=== PATIENT | male | born 1960 | race Caucasian/White ===

== ENCOUNTER 2021-02-10 08:50 | Outpatient (REF) | payer MEDICARE, MEDICAID, SELFPAY ==
[2021-02-10 13:10] LABS: Alanine Aminotransferase 14 U/L (0-40); Albumin Level 4.2 g/dL (3.5-5.0); Alkaline Phosphatase 93 U/L (39-117); Anion Gap 15 (12-20); Aspartate Amino Transferase 14 U/L (5-37); Bilirubin Total 0.6 mg/dL (0.0-1.0); Blood Urea Nitrogen 13 mg/dL (9-16); Calcium 8.6 mg/dL (8.4-10.2); Carbon Dioxide 27 mmol/L (22-29); Chloride 103 mmol/L (96-108); Cholesterol 215 mg/dL; Estimated Glomerular Filt Rate > 60; Glucose Fasting 98 mg/dL (60-99); HDL Cholesterol 27 mg/dL; LDL Cholesterol Calculated 151 mg/dl; Potassium 4.1 mmol/L (3.3-5.1); Sodium 141 mmol/L (135-145); Total Protein 6.5 g/dL (6.5-8.0); Triglycerides 187 mg/dL
[2021-02-10 13:35] LABS: Vitamin D 25-OH Total 33.9 ng/mL (>30)
== END 2021-02-10 08:51 | disposition home or self-care (01) ==
LOC: HO.HMGCLDS 08:50
PROVIDERS: PCP Internal Medicine; Visit Provider Internal Medicine
DX: Z00.01 Encounter for general adult medical examination with abnormal findings (principal); I10 Essential (primary) hypertension; E78.5 Hyperlipidemia, unspecified
CPT/HCPCS: 36415; 80053; 80061; 82306

== ENCOUNTER 2021-09-19 11:33 | Outpatient (REF) | payer MEDICARE, MEDICAID, SELFPAY ==
[2021-09-19 14:03] LABS: Alanine Aminotransferase 17 U/L (0-40); Aspartate Amino Transferase 15 U/L (5-37); Cholesterol 235 mg/dL; HDL Cholesterol 29 mg/dL; LDL Cholesterol Calculated 175 mg/dl; Triglycerides 155 mg/dL
== END 2021-09-19 11:34 | disposition home or self-care (01) ==
LOC: HO.HMGCLDS 11:33
PROVIDERS: PCP Internal Medicine; Visit Provider Internal Medicine
DX: I25.10 Atherosclerotic heart disease of native coronary artery without angina pectoris (principal); I69.30 Unspecified sequelae of cerebral infarction; E78.5 Hyperlipidemia, unspecified
CPT/HCPCS: 36415; 80061; 82550; 84450; 84460

== ENCOUNTER 2022-03-13 11:44 | Outpatient (REF) | payer MEDICARE, MEDICAID, SELFPAY ==
[2022-03-13 14:16] LABS: Alanine Aminotransferase 15 U/L (0-40); Anion Gap 15 (12-20); Aspartate Amino Transferase 15 U/L (5-37); Blood Urea Nitrogen 16 mg/dL (9-16); Calcium 8.9 mg/dL (8.4-10.2); Carbon Dioxide 27 mmol/L (22-29); Chloride 106 mmol/L (96-108); Cholesterol 206 mg/dL; Estimated Glomerular Filt Rate > 60; Glucose Fasting 109 mg/dL (60-99); HDL Cholesterol 26 mg/dL; LDL Cholesterol Calculated 157 mg/dl; Potassium 4.9 mmol/L (3.3-5.1); Sodium 143 mmol/L (135-145); Triglycerides 119 mg/dL
== END 2022-03-13 11:45 | disposition home or self-care (01) ==
LOC: HO.HMGCLDS 11:44
PROVIDERS: PCP Internal Medicine; Visit Provider Internal Medicine
DX: I25.10 Atherosclerotic heart disease of native coronary artery without angina pectoris (principal); I10 Essential (primary) hypertension; E78.5 Hyperlipidemia, unspecified
CPT/HCPCS: 36415; 80048; 80061; 82550; 84450; 84460

== ENCOUNTER 2023-03-26 11:42 | Outpatient (AMB) | payer MEDICARE, MEDICAID, SELFPAY ==
--- NOTE | 2023-03-26 12:01 | MHC.PC.OV ---
Vital Signs 03/26/23 12:03 Height 5 ft 9 in Weight 174 lb BMI 25.7 BP 130/74 Blood Pressure Location Lt brachial Position Sitting Pulse 89 Pulse Source Pulse Oximeter Pulse Oximetry (%) 97 Oxygen Delivery Method Room Air Intake Visit Reasons: Medication review Intake Note: Pt is here today for a follow up visit. Pt states that he needs a refill on his BP med. Allergies atorvastatin Adverse Reaction (Intermediate, Verified 03/26/23 12:30) leg pain Medication List - Last Reconciled 03/26/23 by India Maria MD aspirin (Adult Low Dose Aspirin) 81 mg PO DAILY flu vacc [id number] 6mos up(PF) mL IM lisinopril 10 mg PO DAILY metoprolol succinate ER 25 mg PO DAILY nitroglycerin mg sublingual rosuvastatin 5 mg PO 2XW 90 days Tobacco use date assessed: 03/26/23 Dental Screening Dental Screen Date: 03/26/23 Did you have a dental visit in the last 12 months?: No Did you have a dental problem in the last 6 months where you did not have access to dental care?: No Was dental information given to patient?: Patient declined HPI Medication review HPI Details 62-year-old male with history of CVA , here today for follow-up on his hypertension and dyslipidemia. Has been feeling well with no new complaints at present time. [facility] Medical History Vitreous floaters of right eye Mild intermittent asthma History of CVA with residual deficit Coronary artery disease History of retinal detachment NSTEMI (non-ST elevated myocardial infarction) Colonoscopy refused Essential hypertension Dyslipidemia Surgical History H/O heart artery stent History of eye surgery History of right cataract surgery History of left cataract surgery Family History Father HTN (hypertension) Diabetes mellitus Brother Substance use disorder Paternal Uncle Cancer Social History Housing: House Alcohol intake: never Patient Tobacco Use Status: Current everyday Tobacco user Cigarette Packs Per Day: 1 Cigarettes Per Day: 20 e-Cigarette/Vaping Use: Never Used service: No Current occupational status: unemployed Cognitive needs: No Hearing needs: No Vision needs: No Questionnaire PHQ-9 Over the last 2 weeks, how often have you been bothered by any of the following problems? 1. Little interest or pleasure in doing things: several days 2. Feeling down, depressed, or hopeless: not at all 3. Trouble falling or staying asleep, or sleeping too much: several days 4. Feeling tired or having little energy: nearly every day 5. Poor appetite or overeating: several days 6. Feeling bad about yourself - or that you are a failure or have let yourself or your family down: not at all 7. Trouble concentrating on things, such as reading the newspaper or watching television: several days 8. Moving or speaking so slowly that other people could have noticed. Or the opposite - being so fidgety or restless that you have been moving around a lot more than usual: not at all 9. Thoughts that you would be better off or of hurting yourself in some way: not at all Total score: 7 Depression Screening Interpretation: Negative Depression Screening Done: Yes 30889 - PHQ-9 Billing: Yes Source: Developed by Drs. Jakob Jennings, Italia Johnson, Kingsley Wilburn and colleagues, with an educational south from [employer]. Thrive Questionnaire Date Thrive assessed: 03/26/23 I am a: Patient What is your living situation today?: I have a steady place to live Within the past 12 months, did the food you bought not last and you didn't have the money to get more?: Never true Within the past 12 months, did you worry whether your food would run out before you got money to buy more?: Never true Do you have trouble paying for medicines?: No Do you have trouble getting transportation to medical appointments?: No Do you have trouble paying your heating and electricity bill?: No Do you have trouble taking care of your child, family member or friend?: Yes Do you have trouble with day-to-day activities such as bathing, preparing meals, shopping, managing finances, etc.?: No Are you currently unemployed and looking for a job?: No Are you interested in more education?: No Please select the resources that you would like help with: None Currently or been in a relationship where the following occur: no concerns reported AUDIT C Alcohol Use Questionnaire (AUDIT-C) 1. How often do you have a drink containing alcohol?: Never 3. How often do you have six or more drinks on one occasion?: Never Total Score: 0 NICOLE-7 AMB Questionnaire NICOLE-7 Date NICOLE - 7 assessed: 03/26/23 Feeling nervous, anxious, or on edge: 0 = Not at all Not being able to stop or control worryin = Not at all Worrying too much about different things: 0 = Not at all Trouble relaxin = More than half the days Being so restless that it is hard to sit still: 0 = Not at all Becoming easily annoyed or irritable: 1 = Several days Feeling afraid as if something awful might happen: 1 = Several days Total NICOLE-7 score (0-4 normal; 5-9 mild; 10-14 moderate; 15-21 severe): 4 Source: Developed by Drs. Jakob Jennings, Italia Johnson, Kingsley Wilburn and colleagues, with an educational south from [employer]. NICOLE-7 Assessment Billing NICOLE-7 Assessment Tool: NICOLE-7 Assessment 98333 Review of Systems Const Reports no additional complaints and Denies headache(s) ENT Denies dizziness and Denies headache(s) Card Reports no additional complaints Resp Reports no additional complaints GI Reports no additional complaints Musc Reports stiffness Neuro Denies dizziness and Denies headache(s) Endo Reports no additional complaints Manny/Lymph Reports no additional complaints Physical exam (Primary Care) Vital Signs: Last Vital Signs Pulse 89 03/26/23 12:03 BP 130/74 03/26/23 12:03 Pulse Ox 97 03/26/23 12:03 Oxygen Delivery Method Room Air 03/26/23 12:03 BMI result Body Mass Index 25.7 Tobacco/Smoking Status: Tobacco use Status Tobacco use date assessed 03/26/23 03/26/23 12:19 Patient Tobacco Use Status Current everyday Tobacco 03/26/23 12:19 e-Cigarette/Vaping Use Never Used 03/26/23 12:03 PHQ-9: PHQ-9 Score PHQ-9: Total score 13 03/26/23 12:42 Depression Screening Interpretation: Negative Thrive Assessment: Date of Thrive Assessment Date Thrive assessed 03/26/23 03/26/23 12:03 Currently or been in a relationship where the following occur: no concerns reported Const General: comfortable and no acute distress Nutritional Appearance: average body habitus Orientation/consciousness: patient oriented x3 Limitations: ambulation with cane HENMT Ears: hearing grossly normal bilaterally General nose exam: Normal external nose present Face and sinus: Yes face symmetric Mouth: Normal oral and palatal mucosa present and moist mucous membranes Eyes General: appearance normal, both eyes and all related structures Neck Neck: Yes full ROM, Yes no lymphadenopathy and Yes supple Resp Auscultation: clear to auscultation bilaterally Cardio Other: S1-S2 present regular rate and rhythm GI Palpation (GI): Soft to palpation, nontender, no guarding and no masses Neuro General: patient oriented x3 Assessment and Plan Assessment & Plan (1) Essential hypertension: Code(s): I10 - Essential (primary) hypertension Plan: Blood pressure at goal of less than 130/80. Continue with current medication. Reinforced importance of following a low sodium diet, getting regular exercise, and lowering stress levels. (2) Dyslipidemia: Code(s): E78.5 - Hyperlipidemia, unspecified Plan: fasting lipid profile ordered . Continue with rosuvastatin 5 mg taken twice a week , in addition to adherence to low-cholesterol diet and regular exercise, at least 30 minutes 3 to 4 times a week. Advised patient to make healthy food choices, eat more fruits, vegetables, whole grains, wild caught fish and low-fat dairy. Limit amount of meat and fried or fatty food products, as well as processed foods and fast foods. Follow-up scheduled in 6 months. (3) History of CVA with residual deficit: Code(s): I69.30 - Unspecified sequelae of cerebral infarction Plan: Continue aspirin 81 mg daily (4) Coronary artery disease: Comment: Status post STEMI in 2017, followed by [facility] cardiology, Dr Granados Code(s): I25.10 - Atherosclerotic heart disease of [place] coronary artery without angina pectoris Plan: Continue aspirin 81 mg daily Orders: Orders Lipid Panel 03/26/23 E78.5 - Hyperlipidemia, unspecified, I10 - Essential (primary) hypertension, I25.10 - Atherosclerotic heart disease of [place] coronary artery without angina pectoris, I69.30 - Unspecified sequelae of cerebral infarction, Z12.5 - Encounter for screening for malignant neoplasm of prostate, Z53.20 - Procedure and treatment not carried out because of patient's decision for unspecified reasons Hemoglobin A1c 03/26/23 E78.5 - Hyperlipidemia, unspecified, I10 - Essential (primary) hypertension, I25.10 - Atherosclerotic heart disease of [place] coronary artery without angina pectoris, I69.30 - Unspecified sequelae of cerebral infarction, Z12.5 - Encounter for screening for malignant neoplasm of prostate, Z53.20 - Procedure and treatment not carried out because of patient's decision for unspecified reasons Comprehensive [place]. Panel Fast 03/26/23 E78.5 - Hyperlipidemia, unspecified, I10 - Essential (primary) hypertension, I25.10 - Atherosclerotic heart disease of [place] coronary artery without angina pectoris, I69.30 - Unspecified sequelae of cerebral infarction, Z12.5 - Encounter for screening for malignant neoplasm of prostate, Z53.20 - Procedure and treatment not carried out because of patient's decision for unspecified reasons PSA,Total (Free>4and<10) 03/26/23 E78.5 - Hyperlipidemia, unspecified, I10 - Essential (primary) hypertension, I25.10 - Atherosclerotic heart disease of [place] coronary artery without angina pectoris, I69.30 - Unspecified sequelae of cerebral infarction, Z12.5 - Encounter for screening for malignant neoplasm of prostate, Z53.20 - Procedure and treatment not carried out because of patient's decision for unspecified reasons Medications: Changed From rosuvastatin 5 mg PO 2XW 90 days 26 tabs 1RF E78.5 - Hyperlipidemia, unspecified To rosuvastatin 5 mg PO 2XW 90 days 26 tabs 4RF NS E78.5 - Hyperlipidemia, unspecified Refilled lisinopril Schedule next PCP appt for more refills 10 mg PO DAILY 90 tabs 4RF metoprolol succinate ER 25 mg PO DAILY 90 tabs 4RF Coding Level of Care Code Est Pt Level 3 (20595) Diagnoses Essential hypertension I10 Dyslipidemia E78.5 History of CVA with residual deficit I69.30 Coronary artery disease I25.10 Additional Codes NICOLE-7 Assessment Billing - NICOLE-7 Assessment Tool: NICOLE-7 Assessment 21488 ([id number])
[2023-03-26 12:03] VITALS: BP 130/74; PULSE 89; O2SAT 97; BMI 25.7
== END 2023-03-26 14:21 | disposition home or self-care (01) ==
PROVIDERS: PCP Internal Medicine; Visit Provider Internal Medicine
DX: I10 Essential (primary) hypertension (principal); E78.5 Hyperlipidemia, unspecified; I69.30 Unspecified sequelae of cerebral infarction; I25.10 Atherosclerotic heart disease of native coronary artery without angina pectoris
CPT/HCPCS: 99213

== ENCOUNTER 2023-04-01 08:10 | Outpatient (REF) | payer MEDICARE, MEDICAID, SELFPAY ==
[2023-04-01 12:06] LABS: Alanine Aminotransferase 18 U/L (0-40); Albumin Level 4.4 g/dL (3.5-5.0); Alkaline Phosphatase 92 U/L (39-117); Anion Gap 13 (12-20); Aspartate Amino Transferase 18 U/L (5-37); Bilirubin Total 0.9 mg/dL (0.0-1.0); Blood Urea Nitrogen 15 mg/dL (9-16); Calcium 8.9 mg/dL (8.4-10.2); Carbon Dioxide 26 mmol/L (22-29); Chloride 104 mmol/L (96-108); Cholesterol 177 mg/dL (<200); Estimated Glomerular Filt Rate > 60; Glucose Fasting 114 mg/dL (60-99); HDL Cholesterol 31 mg/dL (>40); LDL Cholesterol Calculated 117 mg/dL (<100); Potassium 4.2 mmol/L (3.3-5.1); Sodium 139 mmol/L (135-145); Total Protein 7.1 g/dL (6.5-8.0); Triglycerides 147 mg/dL (<150)
[2023-04-01 12:26] LABS: PSA,Total (Free>4and<10) 0.95 ng/mL (0.00-4.00)
[2023-04-01 12:51] LABS: Estimated Average Glucose 105 mg/dL; Hemoglobin A1c % 5.3 % (<6.0)
== END 2023-04-01 08:11 | disposition home or self-care (01) ==
LOC: HO.HMGCLDS 08:10
PROVIDERS: PCP Internal Medicine; Visit Provider Internal Medicine
DX: I69.30 Unspecified sequelae of cerebral infarction (principal); I25.10 Atherosclerotic heart disease of native coronary artery without angina pectoris; I10 Essential (primary) hypertension; E78.5 Hyperlipidemia, unspecified; Z12.5 Encounter for screening for malignant neoplasm of prostate
CPT/HCPCS: 36415; 80053; 80061; 83036; 84153

== ENCOUNTER 2023-09-29 09:26 | Outpatient (AMB) | payer MEDICARE, MEDICAID, SELFPAY ==
[2023-09-29 09:37] VITALS: BP 134/64; PULSE 60; O2SAT 96; BMI 26.9
--- NOTE | 2023-09-29 09:37 | A.OFFPC_ITS ---
<Statement entered by India Maria MD - 11/18/24 01:53> This note has been administratively?closed. Vital Signs 09/29/23 09:37 Height 5 ft 9 in Weight 182 lb BMI 26.9 BP 134/64 Blood Pressure Location Rt brachial Position Sitting Pulse 60 Pulse Source Pulse Oximeter Pulse Oximetry (%) 96 Oxygen Delivery Method Room Air Intake Visit Reasons: annual pe Intake Note: Pt is here today for his PE: Pt declined colonoscopy (never had one) Allergies atorvastatin Adverse Reaction (Intermediate, Verified 08/03/24 18:01) leg pain Medication List - Last Reconciled 09/29/23 by India Maria MD aspirin (Adult Low Dose Aspirin) 81 mg PO DAILY lisinopril 10 mg PO DAILY metoprolol succinate ER 25 mg PO DAILY nitroglycerin mg sublingual rosuvastatin 5 mg PO 2XW 90 days NS Tobacco use date assessed: 09/29/23 Dental Screening Dental Screen Date: 09/29/23 Did you have a dental visit in the last 12 months?: No Was dental information given to patient?: Patient declined [facility] Medical History (Updated 08/15/24 @ 00:02 by Background Daandrew) Pneumonia Lung cancer (~2023) Abnormal PET scan of lung Lung mass History of non-ST elevation myocardial infarction (NSTEMI) Nicotine dependence, cigarettes, uncomplicated Glaucoma Vitreous floaters of right eye Mild intermittent asthma History of CVA with residual deficit Coronary artery disease History of retinal detachment Colonoscopy refused Essential hypertension Dyslipidemia Surgical History History of lung biopsy History of cataract surgery History of heart artery stent History of eye surgery Family History Father HTN (hypertension) Diabetes mellitus Brother Substance use disorder Paternal Uncle Cancer Social History Household Members: Family Housing: House Are you a primary primary care pediatrician to a significant other at home: No Do you presently have visiting nurse or other home services: No Alcohol intake: never Patient Tobacco Use Status: Former Tobacco user Tobacco use type: Cigarette Cigarette Packs Per Day: 1 Years Smoked: (onset 17yo, 1-2ppd x 46yrs, 60+PYH) e-Cigarette/Vaping Use: Never Used Substance Use Type: Marijuana service: Yes Current occupational status: unemployed and disabled Gender identity: Male Cognitive needs: No Hearing needs: No Vision needs: No Questionnaire PHQ-9 Over the last 2 weeks, how often have you been bothered by any of the following problems? 1. Little interest or pleasure in doing things: not at all 2. Feeling down, depressed, or hopeless: not at all 3. Trouble falling or staying asleep, or sleeping too much: not at all 4. Feeling tired or having little energy: not at all 5. Poor appetite or overeating: not at all 6. Feeling bad about yourself - or that you are a failure or have let yourself or your family down: not at all 7. Trouble concentrating on things, such as reading the newspaper or watching television: not at all 8. Moving or speaking so slowly that other people could have noticed. Or the opposite - being so fidgety or restless that you have been moving around a lot more than usual: not at all 9. Thoughts that you would be better off or of hurting yourself in some way: not at all Total score: 0 Depression Screening Interpretation: Negative Depression Screening Done: Yes 54164 - PHQ-9 Billing: Yes Source: Developed by Drs. Jakob Jennings, Italia Johnson, Kingsley Wilburn and colleagues, with an educational south from [employer]. Thrive Questionnaire Date Thrive assessed: 09/29/23 I am a: Patient What is your living situation today?: I have a steady place to live Within the past 12 months, did the food you bought not last and you didn't have the money to get more?: Never true Within the past 12 months, did you worry whether your food would run out before you got money to buy more?: Never true Do you have trouble paying for medicines?: No Do you have trouble getting transportation to medical appointments?: No Do you have trouble paying your heating and electricity bill?: No Do you have trouble taking care of your child, family member or friend?: No Do you have trouble with day-to-day activities such as bathing, preparing meals, shopping, managing finances, etc.?: No Are you currently unemployed and looking for a job?: No Are you interested in more education?: No THRIVE Score: 0 AUDIT C Alcohol Use Questionnaire (AUDIT-C) 1. How often do you have a drink containing alcohol?: Never Total Score: 0 NICOLE-7 AMB Questionnaire NICOLE-7 Date NICOLE - 7 assessed: 09/29/23 Feeling nervous, anxious, or on edge: 0 = Not at all Not being able to stop or control worryin = Not at all Worrying too much about different things: 0 = Not at all Trouble relaxin = Not at all Being so restless that it is hard to sit still: 0 = Not at all Becoming easily annoyed or irritable: 0 = Not at all Feeling afraid as if something awful might happen: 0 = Not at all Total NICOLE-7 score (0-4 normal; 5-9 mild; 10-14 moderate; 15-21 severe): 0 Source: Developed by Drs. Jakob Jennings, Italia Johnson, Kingsley Wilburn and colleagues, with an educational south from [employer]. Physical exam (Primary Care) Vital Signs: Last Vital Signs Pulse 60 09/29/23 09:37 BP 134/64 09/29/23 09:37 Pulse Ox 96 09/29/23 09:37 Oxygen Delivery Method Room Air 09/29/23 09:37 BMI result Body Mass Index 26.9 Tobacco/Smoking Status: Tobacco use Status Tobacco use date assessed 09/29/23 09/29/23 09:38 Patient Tobacco Use Status Current everyday Tobacco 09/29/23 09:38 e-Cigarette/Vaping Use Never Used 09/29/23 09:38 PHQ-9: PHQ-9 Score PHQ-9: Total score 0 11/17/24 09:59 Depression Screening Interpretation: Negative Thrive Assessment: Date of Thrive Assessment Date Thrive assessed 09/29/23 09/29/23 09:51 Coding Level of Care Code Admin Sign Off/No Billing Diagnoses Glaucoma H40.9 Mild intermittent asthma J45.20 History of CVA with residual deficit I69.30 Coronary artery disease I25.10 Colonoscopy refused Z53.20 Essential hypertension I10 Dyslipidemia E78.5 Annual visit for general adult medical examination with abnormal findings Z00.01 Encounter for screening for malignant neoplasm of prostate Z12.5
== END 2023-09-29 12:32 | disposition home or self-care (01) ==
PROVIDERS: PCP Internal Medicine; Visit Provider Internal Medicine
DX: H40.9 Unspecified glaucoma (principal); J45.20 Mild intermittent asthma, uncomplicated; I69.30 Unspecified sequelae of cerebral infarction; I25.10 Atherosclerotic heart disease of native coronary artery without angina pectoris; Z53.20 Procedure and treatment not carried out because of patient's decision for unspecified reasons; I10 Essential (primary) hypertension; E78.5 Hyperlipidemia, unspecified; Z00.01 Encounter for general adult medical examination with abnormal findings; Z12.5 Encounter for screening for malignant neoplasm of prostate
CPT/HCPCS: 99499

== ENCOUNTER 2024-02-04 10:47 | Outpatient (AMB) | payer MEDICARE, MEDICAID, SELFPAY ==
--- NOTE | 2024-02-04 07:53 | MHC.OFFVIS ---
Intake Visit Reasons: Current Smoker Allergies atorvastatin Adverse Reaction (Intermediate, Verified 09/29/23 10:13) leg pain HPI HPI Current Smoker: Details: Initial visit for this 63yo smoker with a 60+PYH. Patient has been smoking since age 17 for 46 years at 1-2ppd. . Denies marijuana use. Denies second hand smoke exposure. 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 Denies known family history of lung cancer. Denies personal history of cancers. Denies chest CT in last year. . Denies recent travel outside the [place]. Denies recent respiratory illness or recent hospitalization for respiratory issues. Denies testing positive for COVID. Admits receiving COVID Vaccine. x 4. . History of CVA and CAD. Denies fever, chills, new/worsening cough, hemoptysis, hoarseness or dysphagia. Denies significant chest pain, significant dyspnea or unintentional weight loss. Patient Lung Cancer Screening Questionnaire reviewed with patient by provider. . Shared Decision Making Completed. Patient meets criteria. Discussed in detail with patient, the risk vs benefit of LDCT screening. Patient consents to proceed with scan. Discussed smoking cessation. [facility] Medical History (Updated 02/04/24 @ 11:09 by Maribell Adler PA-C) History of CVA with residual deficit Coronary artery disease History of non-ST elevation myocardial infarction (NSTEMI) Essential hypertension Dyslipidemia Mild intermittent asthma Nicotine dependence, cigarettes, uncomplicated History of retinal detachment Glaucoma Vitreous floaters of right eye Colonoscopy refused Surgical History (Updated 01/13/24 @ 10:42 by Maribell Adler PA-C) History of heart artery stent History of cataract surgery History of eye surgery Family History Father HTN (hypertension) Diabetes mellitus Brother Substance use disorder Paternal Uncle Cancer Social History (Updated 02/04/24 @ 11:09 by Maribell Adler PA-C) Housing: House Alcohol intake: never Patient Tobacco Use Status: Current everyday Tobacco user Cigarette Packs Per Day: 1 Cigarettes Per Day: 20 Years Smoked: (onset 17yo, 1-2ppd x 46yrs, 60+PYH) e-Cigarette/Vaping Use: Never Used service: No Current occupational status: unemployed Cognitive needs: No Hearing needs: No Vision needs: No Assessment & Plan Assessment & Plan (1) Nicotine dependence, cigarettes, uncomplicated: Comment: (Current smoker - onset 17yo, 1-2ppd x 46yrs, 60+PYH) Code(s): F17.210 - Nicotine dependence, cigarettes, uncomplicated Category: Medical Plan: - SDM visit completed today in office. - Patient meets criteria for LDCT for lung cancer screening purposes and is asymptomatic. - Smoking cessation counseling offered. Patients can always call [phone]. - Will arrange for a LDCT scan of the chest for screening purposes at [facility]. - Risks, benefits, and alternatives were discussed in detail and the patient agrees to proceed. - Risks discussed include but are not limited to: radiation exposure, anxiety during testing and while awaiting results, false negatives, false positives and possibility of additional intervention such as further imaging or surgical procedures for benign disease. - Benefits are obviously detection of lung cancer at an early stage which can lead to improved outcomes. - Discussed the importance of screening program compliance with adherence to yearly LDCT scan as scheduled - or sooner interval scans for personalized screening regimen. - Discussed follow up plan. Our office will send a letter discussing results and if needed set up phone call and office visit based on CT findings. - Patient educated on results categorization and the management decisions for suspicious findings potentially found on the screening LDCT scan. Any patient with a Lung RADS score of 3 or 4 will be reviewed by a multidisciplinary team at [facility] to form a plan of action in regards to scan findings. - If further work up is warranted for a suspicious lung finding this will be followed by the Lung Cancer Screening program in conjunction with the Thoracic Surgery Department at [facility]. - A copy of the office note and LDCT will be sent to the patient's PCP - as well as documentation on any associated further plans of care. - Incidental findings on LDCT are the PCP's responsibility. These findings are indicated with an S finding on the LDCT Assessment. A note discussing the findings will be sent to the PCP who is then responsible for further management. - All questions answered.? Coding Level of Care Code Lung Cancer Screening G0296 Diagnoses Nicotine dependence, cigarettes, uncomplicated F17.210
== END 2024-02-04 11:07 | disposition home or self-care (01) ==
PROVIDERS: PCP Internal Medicine; Referring Provider Internal Medicine; Visit Provider Physician Assistant Medical
DX: F17.210 Nicotine dependence, cigarettes, uncomplicated (principal)
CPT/HCPCS: G0296

== ENCOUNTER 2024-02-04 11:10 | Outpatient (REF) | payer MEDICARE, MEDICAID, SELFPAY ==
--- NOTE | ~2024-02-04 | CT_ITS ---
EXAMINATION: CT LOW-DOSE SCREENING CHEST WITHOUT CONTRAST CLINICAL INFORMATION: Nicotine dependence, cigarettes, uncomplicated. The patient is a current smoker with a 94 pack-year history of smoking. COMPARISON: None available. TECHNIQUE: Multidetector volumetric CT imaging of the chest is performed on a Siemens SOMATOM Definition scanner without contrast using low dose technique. Additional 2D coronal and sagittal reformatted images and axial 3D maximum intensity projection (MIP) images are generated on the CT workstation. This CT examination was performed using dose optimization techniques as appropriate, variously including the following: *Automated exposure control. *Adjustment of mA and/or kV according to patient size (this includes techniques or standardized protocols for targeted exams where dose is matched to indication/reason for exam; i.e. extremities or head). *Use of iterative reconstruction technique. TOTAL EXAM DLP: 51 mGy-cm. CTDIvol: 1.40 mGy. FINDINGS: PULMONARY NODULES: There is a large right infrahilar pulmonary mass present which occludes the right lower lobe bronchus. This measures 5.7 x 7.6 x 4.5 cm. There are lobular changes distal to this along bronchi and some distal atelectasis. These findings are highly suspicious for neoplasm. No left-sided pulmonary nodules are seen. LUNGS: Lungs bilaterally symmetrically expanded. There is mild emphysema and bronchial thickening. No effusion or pneumothorax. See discussion above regarding occlusion of the right lower lobe bronchus. MEDIASTINUM: There is an enlarged subcarinal lymph node present measuring 2.4 x 3.3 x 3.3 cm. Perihilar adenopathy is present but difficult to measure because of lack of IV contrast. There is a mildly enlarged right paratracheal node present measuring 1.4 cm in short axis dimension. CORONARY ARTERY CALCIFICATION: Moderate. THYROID GLAND: Unremarkable to the extent seen. CARDIOVASCULAR STRUCTURES: Aortic and heart size normal. No pericardial effusion. CHEST WALL/AXILLA: Unremarkable. UPPER ABDOMEN: No adrenal metastatic lesions seen. There is hepatic steatosis. Included portions of the solid organs in the upper abdomen otherwise unremarkable on noncontrast imaging. OSSEOUS STRUCTURES: No suspicious focal findings. CT/CT lung screening IMPRESSION: 1. Large right infrahilar mass obstructing right lower lobe bronchus with associated right hilar and subcarinal adenopathy. Findings are highly suspicious for neoplasm. 2. There is a nodule with additional features or imaging findings that increases the suspicion of malignancy. ASSESSMENT: 1. Lung-RADS Category 4X: Suspicious. There is a nodule with additional features or imaging findings that increases the suspicion of malignancy. N/A. 2. Lung-RADS Category S: Positive. There are clinically significant or potentially clinically significant findings not related to the lungs requiring further workup. RECOMMENDATION: Tissue sampling is recommended depending on the probability of malignancy and comorbidities. This critical result was discussed with Dr. Montesinos at 6:56 PM on 03/09/2024 and it was ascertained that the content and urgency of the report was understood at the time of direct communication. Electronically signed by: Shahid Dowd MD 03/09/2024 06:59 PM EDT
== END 2024-02-04 11:11 | disposition home or self-care (01) ==
LOC: HO.CT 11:10
PROVIDERS: PCP Internal Medicine; Visit Provider Physician Assistant Medical
DX: Z12.2 Encounter for screening for malignant neoplasm of respiratory organs (principal); F17.210 Nicotine dependence, cigarettes, uncomplicated
CPT/HCPCS: 71271; G0296

== ENCOUNTER 2024-02-19 09:34 | Outpatient (REF) | payer MEDICARE, MEDICAID, SELFPAY ==
[2024-02-19 11:09] LABS: MANUAL DIFF FLAG NO
[2024-02-19 11:17] LABS: Basophils Percent Auto 0.4 % (0-2); Eosinophils Absolute Auto 0.1 X10*3/uL (0.0-0.4); Hematocrit 44.1 % (42.0-52.0); Hemoglobin 14.2 g/dl (14.0-18.0); Imm Gran Abs Auto 0.03 X10*3/uL (0.00-0.03); Imm Gran Pct Auto 0.4 % (0.0-0.4); Lymphocytes Absolute Auto 2.7 X10*3/uL (1.2-4.9); Lymphocytes Percent Auto 38.2 % (20-40); Mean Corpuscular HGB Conc 32.2 g/dl (31.0-36.0); Mean Corpuscular Hemoglobin 30.3 pg (27.0-33.0); Mean Platelet Volume 8.9 fL (9.4-12.4); Monocytes Absolute Auto 0.5 X10*3/uL (0.1-1.2); Monocytes Percent Auto 7.6 % (2-11); Neutrophils Absolute Auto 3.6 x10*3/uL (2.0-8.3); Neutrophils Percent Auto 51.4 % (45-73); Platelet Count 293 X10*3/uL (160-400); Red Blood Count 4.69 X10*6/uL (4.60-5.80); Red Cell Distribution Width 14.7 % (11.0-16.0); White Blood Count 7.1 X10*3/uL (4.8-10.8)
[2024-02-19 11:41] LABS: Alanine Aminotransferase 21 U/L (0-40); Anion Gap 14 (12-20); Aspartate Amino Transferase 16 U/L (5-37); Blood Urea Nitrogen 10 mg/dL (9-16); Calcium 9.4 mg/dL (8.4-10.2); Carbon Dioxide 26 mmol/L (22-29); Chloride 107 mmol/L (96-108); Cholesterol 186 mg/dL (<200); Estimated Glomerular Filt Rate > 60; Glucose Fasting 107 mg/dL (60-99); HDL Cholesterol 28 mg/dL (>40); LDL Cholesterol Calculated 134 mg/dL (<100); Potassium 4.1 mmol/L (3.3-5.1); Sodium 143 mmol/L (135-145); Triglycerides 122 mg/dL (<150)
[2024-02-19 11:49] LABS: PSA,Total (Free>4and<10) 1.41 ng/mL (0.00-4.00)
[2024-02-19 11:58] LABS: Vitamin D 25-OH Total 37.4 ng/mL (>30)
== END 2024-02-19 09:35 | disposition home or self-care (01) ==
LOC: HO.HMGCLDS 09:34
PROVIDERS: PCP Internal Medicine; Visit Provider Internal Medicine
DX: I69.30 Unspecified sequelae of cerebral infarction (principal); I25.10 Atherosclerotic heart disease of native coronary artery without angina pectoris; I10 Essential (primary) hypertension; E78.5 Hyperlipidemia, unspecified; J45.20 Mild intermittent asthma, uncomplicated; H40.9 Unspecified glaucoma; F17.210 Nicotine dependence, cigarettes, uncomplicated; Z12.5 Encounter for screening for malignant neoplasm of prostate
CPT/HCPCS: 36415; 80048; 80061; 82306; 84153; 84450; 84460; 85025

== ENCOUNTER 2024-02-22 13:37 | Outpatient (AMB) | payer MEDICARE, MEDICAID, SELFPAY ==
[2024-02-22 14:22] VITALS: BP 124/60; PULSE 75; O2SAT 95; BMI 26.0
--- NOTE | 2024-02-22 14:22 | A.OFFPC_ITS ---
Vital Signs 02/22/24 14:22 Height 5 ft 9 in Weight 176 lb BMI 26.0 BP 124/60 Blood Pressure Location Rt brachial Position Sitting Pulse 75 Pulse Source Pulse Oximeter Pulse Oximetry (%) 95 Oxygen Delivery Method Room Air Intake Visit Reasons: f/u labs Intake Note: Pt is here today for his f/u lab Allergies atorvastatin Adverse Reaction (Intermediate, Verified 02/22/24 14:37) leg pain Medication List - Last Reconciled 02/22/24 by India Maria MD aspirin (Adult Low Dose Aspirin) 81 mg PO DAILY lisinopril 10 mg PO DAILY metoprolol succinate ER 25 mg PO DAILY nitroglycerin mg sublingual rosuvastatin 5 mg PO 2XW 90 days NS Tobacco use date assessed: 02/22/24 Dental Screening Dental Screen Date: 02/22/24 Did you have a dental visit in the last 12 months?: Yes Did you have a dental problem in the last 6 months where you did not have access to dental care?: Yes Was dental information given to patient?: Patient has dentist HPI f/u labs HPI Details 62-year-old male with past medical histo ry of CVA , mild intermittent asthma, CAD with history of non-STEMI, has hypertension hyperlipidemia, here today for follow-up. He has been compliant with taking his medications, currently on lisinopril 10 mg daily, metoprolol succinate 25 mg at night and rosuvastatin 5 mg taken 1 tablet 3 times a week. He has been compliant with his diet but limited with getting any exercise done due to residual deficits from his CVA. Latest fasting labs done showed electrolytes, and renal function as well as fasting glucose and vitamin-D level are within normal limits. Latest fasting labs showed normal electrolytes, renal function, fasting glucose and vitamin-D level but fasting lipids showed mildly elevated LDL cholesterol and low HDL. Blood pressure is stable controlled on present treatment. Continues to smoke however with no desire to quit at present time. Has been referred for lung cancer screening. He also has glaucoma, was being followed at the [facility] in [place], and would like a referral back to see them as he has missed several appointments. [facility] Medical History History of CVA with residual deficit Coronary artery disease History of non-ST elevation myocardial infarction (NSTEMI) Essential hypertension Dyslipidemia Mild intermittent asthma Nicotine dependence, cigarettes, uncomplicated History of retinal detachment Glaucoma Vitreous floaters of right eye Colonoscopy refused Surgical History History of heart artery stent History of cataract surgery History of eye surgery Family History Father HTN (hypertension) Diabetes mellitus Brother Substance use disorder Paternal Uncle Cancer Social History Housing: House Alcohol intake: never Patient Tobacco Use Status: Current everyday Tobacco user Cigarette Packs Per Day: 1 Cigarettes Per Day: 20 Years Smoked: (onset 17yo, 1-2ppd x 46yrs, 60+PYH) e-Cigarette/Vaping Use: Never Used service: No Current occupational status: unemployed Cognitive needs: No Hearing needs: No Vision needs: No Questionnaire PHQ-9 Over the last 2 weeks, how often have you been bothered by any of the following problems? Depression Screening Interpretation: Negative Depression Screening Done: Yes Source: Developed by Drs. Jakob Jennings, Italia Johnson, Kingsley Wilburn and colleagues, with an educational south from [employer]. Thrive Questionnaire Date Thrive assessed: 09/29/23 I am a: Patient What is your living situation today?: I have a steady place to live Within the past 12 months, did the food you bought not last and you didn't have the money to get more?: Never true Within the past 12 months, did you worry whether your food would run out before you got money to buy more?: Never true Do you have trouble paying for medicines?: I choose not to answer this question Do you have trouble getting transportation to medical appointments?: No Do you have trouble paying your heating and electricity bill?: No Do you have trouble taking care of your child, family member or friend?: No Do you have trouble with day-to-day activities such as bathing, preparing meals, shopping, managing finances, etc.?: No Are you currently unemployed and looking for a job?: No Are you interested in more education?: No Please select the resources that you would like help with: None Currently or been in a relationship where the following occur: No concerns reported THRIVE Score: 0 AUDIT C Alcohol Use Questionnaire (AUDIT-C) 1. How often do you have a drink containing alcohol?: Never Total Score: 0 NICOLE-7 AMB Questionnaire NICOLE-7 Date NICOLE - 7 assessed: 09/29/23 Feeling nervous, anxious, or on edge: 0 = Not at all Not being able to stop or control worryin = Not at all Worrying too much about different things: 0 = Not at all Trouble relaxin = Not at all Being so restless that it is hard to sit still: 0 = Not at all Becoming easily annoyed or irritable: 0 = Not at all Feeling afraid as if something awful might happen: 0 = Not at all Total NICOLE-7 score (0-4 normal; 5-9 mild; 10-14 moderate; 15-21 severe): 0 Source: Developed by Drs. Jakob Jennings, Italia Johnson, Kingsley Wilburn and colleagues, with an educational south from [employer]. Review of Systems Const Reports no additional complaints and Denies headache(s) Eyes Reports loss of vision, Reports eye pain (Positive photophobia), Reports seeing flashes and Reports spots in vision ENT Denies dizziness and Denies headache(s) Card Reports no additional complaints Resp Reports no additional complaints GI Reports no additional complaints Musc Reports abnormal gait, Reports limited range of motion and Reports stiffness Neuro Reports abnormal gait, Denies dizziness, Denies headache(s) and Reports loss of vision Endo Reports no additional complaints Manny/Lymph Reports no additional complaints Physical exam (Primary Care) Vital Signs: Last Vital Signs Pulse 75 02/22/24 14:22 BP 124/60 02/22/24 14:22 Pulse Ox 95 02/22/24 14:22 Oxygen Delivery Method Room Air 02/22/24 14:22 BMI result Body Mass Index 26.0 Tobacco/Smoking Status: Tobacco use Status Tobacco use date assessed 02/22/24 02/22/24 14:23 Patient Tobacco Use Status Current everyday Tobacco 02/22/24 14:23 e-Cigarette/Vaping Use Never Used 02/22/24 14:23 Depression Screening Interpretation: Negative Thrive Assessment: Date of Thrive Assessment Date Thrive assessed 09/29/23 02/22/24 14:23 Currently or been in a relationship where the following occur: No concerns reported Const General: no acute distress Nutritional Appearance: average body habitus Orientation/consciousness: patient oriented x3 Limitations: ambulation with cane HENMT Ears: hearing grossly normal bilaterally General nose exam: Normal external nose present Face and sinus: Yes face symmetric Mouth: Normal oral and palatal mucosa present and moist mucous membranes Eyes General: dysmorphic Alignment and Position: alignment abnormal Pupils: Equal, round and reactive pupils present Neck Neck: Yes full ROM, Yes no lymphadenopathy and Yes supple Resp Auscultation: clear to auscultation bilaterally Cardio Other: S1-S2 present regular rate and rhythm GI Palpation (GI): Soft to palpation, nontender, no guarding and no masses Skin General skin exam: no rashes or lesions noted Neuro General: patient oriented x3 Cranial nerves: Yes Equal, round and reactive pupils present Extrem General: Yes full ROM, Yes no joint enlargement, Yes no pedal edema, Yes no calf tenderness and Yes Limp noted Results Reviewed Results Reviewed: Name: Livan Catherine Age/Sex: 63/M : 1960 Unit#: [id number] Attend Dr: India Maria MD Re02/19/24 Status: DEP REF Location: [facility] Disch: SPEC : [id number] RENE: 02/19/24 STATUS: COMP REQ : [id number] RECD: 02/19/[address]: India Maria MD COMP: 02/19/24 ENTERED: 02/19/[address] [facility] DR: ORDERED: Met Prof Fast, AST, ALT, Lipid Panel, Vitamin D 25-OH Test Result Flag Reference Sodium 143 135-145 mmol/L Potassium 4.1 3.3-5.1 mmol/L CL 107 96-108 mmol/L CO2 26 22-29 mmol/L Gap 14 12-20 BUN 10 9-16 mg/dL Creat 1.06 0.5-1.4 mg/dL EGFR > 60 NOTE: For -[place] individuals, multiply the result by 1.210. Chronic Kidney Disease: Estimated GFR < 60 mL/min/1.73m2 Severe Kidney Disease: Estimated GFR < 15 mL/min/1.73m2 FBS 107 H 60-99 mg/dL A fasting glucose from 100-125 mg/dl is considered impaired (pre-diabetes). CA 9.4 8.4-10.2 mg/dL AST (GOT) 16 5-37 U/L ALT (GPT) 21 0-40 U/L Triglyceride 122 <150 mg/dL Desirable Triglyceride: less than 150 mg/dL Borderline High Triglyceride 150-199 mg/dL High Triglyceride: 200-499 mg/dL Very High Triglyceride: greater than or equal to 5OO mg/dL Cholesterol 186 <200 mg/dL Desirable Cholesterol: less than 200 mg/dL Borderline High Cholesterol: 200-239 mg/dL High Cholesterol: greater than 239 mg/dL LDL Calculated 134 H <100 mg/dL Desirable LDL: less than 100 mg/dL Near Optimal/Above Optimal LDL: 110-129 mg/dL Borderline High LDL: 130-159 mg/dL High LDL: 160-189 mg/dL Very High LDL: greater than or equal to 190 mg/dL HDL 28 L >40 mg/dL Desirable HDL: greater than 40 mg/dL Note: This HDL assay may give artificially low results in patients with liver disease. Vit D 25-OH Tot 37.4 >30 ng/mL Health Based Reference Values* < 20 ng/mL Deficient 20-30 ng/mL Insufficient > 30 ng/mL Sufficient Assessment and Plan Assessment & Plan (1) Glaucoma: Comment: [facility] to [facility] [place] Code(s): H40.9 - Unspecified glaucoma Qualifiers: Glaucoma type: unspecified Laterality: unspecified laterality Qualified Code(s): H40.9 - Unspecified glaucoma Plan: [facility] to [facility] in [place] for follow-up regarding glaucoma (2) Dyslipidemia: Code(s): E78.5 - Hyperlipidemia, unspecified Plan: Reviewed latest fasting lab results with patient, with LDL not at goal. Will increase rosuvastatin dosing to 5 mg taken 1 tablet 3 times a week, reinforced importance of combining this with a low-cholesterol diet. Will repeat another fasting lipid panel in 09/2024 (3) Essential hypertension: Code(s): I10 - Essential (primary) hypertension Plan: Blood pressure stable controlled on present treatment. Continued on lisinopril 10 mg daily, refill sent, and metoprolol succinate 5 mg once a day (4) Nicotine dependence, cigarettes, uncomplicated: Comment: (Current smoker - onset 17yo, 1-2ppd x 46yrs, 60+PYH) Code(s): F17.210 - Nicotine dependence, cigarettes, uncomplicated Plan: Patient strongly advised to stop smoking, as smoking damages blood vessels, degenerative of joints and spine, damage to lungs and heart., predisposes to developing certain cancers like lung, breast, bladder, colon. Recommended to try decreasing cigarette use by 1-2 cigarettes a day. Advised to monitor what triggers are for smoking so that this can be discussed on the next office visit. We can discuss different options to quit smoking when ready.. Patient already has been referred and seen for lung cancer screening (5) History of CVA with residual deficit: Comment: (cerebellar - ambulates with cane - at age 43) Code(s): I69.30 - Unspecified sequelae of cerebral infarction Plan: Continue with aspirin 81 mg daily (6) Coronary artery disease: Comment: (Hx NSTEMI in 10/2016, s/p BMS to mid circumflex - followed by [facility], Dr Granados) Code(s): I25.10 - Atherosclerotic heart disease of [place] coronary artery without angina pectoris Plan: Continue aspirin 81 mg daily, reinforced importance of getting blood pressure and lipids under control, goal LDL less than 100 mg/dL. (7) Mild intermittent asthma: Code(s): J45.20 - Mild intermittent asthma, uncomplicated Qualifiers: Asthma complication type: uncomplicated Qualified Code(s): J45.20 - Mild intermittent asthma, uncomplicated Plan: Reinforced importance of smoking cessation. Patient however not ready to quit. Refills prescription sent for albuterol inhaler Orders: Orders Lipid Panel 09/19/24 E78.5 - Hyperlipidemia, unspecified, I10 - Essential (primary) hypertension, I25.10 - Atherosclerotic heart disease of [place] coronary artery without angina pectoris, I69.30 - Unspecified sequelae of cerebral infarction Alanine Aminotransferase 09/19/24 E78.5 - Hyperlipidemia, unspecified, I10 - Essential (primary) hypertension, I25.10 - Atherosclerotic heart disease of [place] coronary artery without angina pectoris, I69.30 - Unspecified sequelae of cerebral infarction Aspartate Amino Transferase 09/19/24 E78.5 - Hyperlipidemia, unspecified, I10 - Essential (primary) hypertension, I25.10 - Atherosclerotic heart disease of [place] coronary artery without angina pectoris, I69.30 - Unspecified sequelae of cerebral infarction Basic Metabolic Panel Fasting 09/19/24 E78.5 - Hyperlipidemia, unspecified, I10 - Essential (primary) hypertension, I25.10 - Atherosclerotic heart disease of [place] coronary artery without angina pectoris, I69.30 - Unspecified sequelae of cerebral infarction Referrals Ophthalmology Referral H40.9 - Unspecified glaucoma, H43.391 - Other vitreous opacities, right eye Medications: New albuterol sulfate 90 mcg/actuation 2 puffs inhalation Q6H PRN 8.5 grams 0RF shortness of breath or wheezing Changed From rosuvastatin 5 mg PO 2XW 90 days 26 tabs 4RF NS E78.5 - Hyperlipidemia, unspecified To rosuvastatin 5 mg PO 3XW 3 months 39 tabs 4RF NS E78.5 - Hyperlipidemia, unspecified Refilled metoprolol succinate ER 25 mg PO DAILY 90 tabs 4RF lisinopril Schedule next PCP appt for more refills 10 mg PO DAILY 90 tabs 4RF Coding Level of Care Code Est Pt Level 4 (77177) Complex EM visit Add On G2211 Diagnoses Glaucoma, unspecified glaucoma type, unspecified laterality H40.9 Glaucoma type: unspecified Laterality: unspecified laterality Dyslipidemia E78.5 Essential hypertension I10 Nicotine dependence, cigarettes, uncomplicated F17.210 History of CVA with residual deficit I69.30 Coronary artery disease I25.10 Mild intermittent asthma without complication J45.20 Asthma complication type: uncomplicated
== END 2024-02-22 16:03 | disposition home or self-care (01) ==
PROVIDERS: PCP Internal Medicine; Visit Provider Internal Medicine
DX: H40.9 Unspecified glaucoma (principal); E78.5 Hyperlipidemia, unspecified; I10 Essential (primary) hypertension; F17.210 Nicotine dependence, cigarettes, uncomplicated; I69.30 Unspecified sequelae of cerebral infarction; I25.10 Atherosclerotic heart disease of native coronary artery without angina pectoris; J45.20 Mild intermittent asthma, uncomplicated
CPT/HCPCS: 99214; G2211

== ENCOUNTER → 2024-03-23 14:54 | Outpatient (REF) | payer MEDICARE, MEDICAID, SELFPAY ==
[2024-03-23 15:05] LABS: MANUAL DIFF FLAG NO
--- NOTE | 2024-03-23 15:05 | ECG_ITS ---
Test Reason : COPD Blood Pressure : / mmHG Vent. Rate : 091 BPM Atrial Rate : 091 BPM P-R Int : 128 ms QRS Dur : 090 ms QT Int : 346 ms P-R-T Axes : 069 060 073 degrees QTc Int : 425 ms Normal sinus rhythm Normal ECG No previous ECGs available Referred By: Jeffery Montesinos Electronically Signed By:JANNETTE MARES
[2024-03-23 15:39] LABS: Basophils Percent Auto 0.4 % (0-2); Eosinophils Absolute Auto 0.1 X10*3/uL (0.0-0.4); Eosinophils Percent Auto 0.9 % (0-4); Hematocrit 37.5 % (42.0-52.0); Hemoglobin 12.3 g/dl (14.0-18.0); Imm Gran Abs Auto 0.05 X10*3/uL (0.00-0.03); Imm Gran Pct Auto 0.5 % (0.0-0.4); Lymphocytes Absolute Auto 2.6 X10*3/uL (1.2-4.9); Lymphocytes Percent Auto 28.6 % (20-40); Mean Corpuscular HGB Conc 32.8 g/dl (31.0-36.0); Mean Corpuscular Hemoglobin 29.4 pg (27.0-33.0); Mean Corpuscular Volume 89.5 fL (80.0-98.0); Mean Platelet Volume 8.7 fL (9.4-12.4); Monocytes Absolute Auto 0.7 X10*3/uL (0.1-1.2); Monocytes Percent Auto 7.9 % (2-11); Neutrophils Absolute Auto 5.7 x10*3/uL (2.0-8.3); Neutrophils Percent Auto 61.7 % (45-73); Platelet Count 322 X10*3/uL (160-400); Red Blood Count 4.19 X10*6/uL (4.60-5.80); Red Cell Distribution Width 15.3 % (11.0-16.0); White Blood Count 9.2 X10*3/uL (4.8-10.8)
[2024-03-23 16:11] LABS: Anion Gap 16 (12-20); Blood Urea Nitrogen 13 mg/dL (9-16); Calcium 10.1 mg/dL (8.4-10.2); Carbon Dioxide 26 mmol/L (22-29); Chloride 102 mmol/L (96-108); Estimated Glomerular Filt Rate > 60; Glucose Random 106 mg/dL (60-115); Potassium 3.7 mmol/L (3.3-5.1); Sodium 140 mmol/L (135-145)
[2024-03-23 16:21] LABS: Troponin-I High Sensitivity < 2.7 ng/L (<3.5-35.0)
== END ==
LOC: HO.CARD 14:54
PROVIDERS: PCP Internal Medicine; Visit Provider Hospitalist
DX: R91.8 Other nonspecific abnormal finding of lung field (principal); J44.9 Chronic obstructive pulmonary disease, unspecified
CPT/HCPCS: 36415; 80048; 84484; 85025; 93005

== ENCOUNTER → 2024-03-24 11:56 | Day surgery (SDC) | payer MEDICARE, MEDICAID, SELFPAY ==
--- NOTE | 2024-03-22 10:10 | P.CONAN_ITS ---
HPI - Anesthesia Eval Consult details Narrative: Pending stress and echo 63yo M for Endoscopic Bronchial Ultrasound Follows [facility] cardiology, but has not seen since 2021: CAD, status post non- STEMI, 11/04, single vessel disease, mid circumflex, treated with a bare metal stent 3.0 x 20. case reviewed with Dr Bruce, need cardiac input, Betty at [facility] notified PMFSH Active Problems Active Problems: All Active Problems History of CVA with residual deficit (Acute) Coronary artery disease (Acute) Essential hypertension (Acute) Dyslipidemia (Acute) Mild intermittent asthma (Acute) Nicotine dependence, cigarettes, uncomplicated (Acute) Glaucoma (Acute) Vitreous floaters of right eye (Acute) Colonoscopy refused (Acute) Past Medical History Medical History Abnormal PET scan of lung Lung mass History of CVA with residual deficit Coronary artery disease History of non-ST elevation myocardial infarction (NSTEMI) Essential hypertension Dyslipidemia Mild intermittent asthma Nicotine dependence, cigarettes, uncomplicated History of retinal detachment Glaucoma Vitreous floaters of right eye Colonoscopy refused Family History Family History Father HTN (hypertension) Diabetes mellitus Brother Substance use disorder Paternal Uncle Cancer Surgical History Surgical History History of heart artery stent History of cataract surgery History of eye surgery Social History Social History Housing: House Alcohol intake: never Patient Tobacco Use Status: Current everyday Tobacco user Cigarette Packs Per Day: 1 Cigarettes Per Day: 20 Years Smoked: (onset 17yo, 1-2ppd x 46yrs, 60+PYH) e-Cigarette/Vaping Use: Never Used service: No Current occupational status: unemployed Cognitive needs: No Hearing needs: No Vision needs: No Meds Allergies Allergy/AdvReac Type Severity Reaction Status Date / Time atorvastatin AdvReac Intermediate leg pain Verified 03/31/24 08:44 Home Medications ?Medication ?Instructions ?Recorded ?Confirmed ?Last Taken ?Type nitroglycerin 0.4 mg sublingual mg sublingual 07/18/20 04/04/24 Unknown History tablet aspirin 81 mg tablet,delayed 81 mg PO DAILY 09/25/21 04/04/24 Unknown History release (Adult Low Dose Aspirin) Exam Narrative Narrative: 2019 Stress Summary 1. Myocardial perfusion imaging is normal without any fixed or reversible perfusion defect after Regadenoson infusion. 2. Normal rest and post-stress left ventricular chamber size and systolic function without regional wall motion abnormalities. 3. ECG portion of the stress test is reported separately. Assessment and Plan Assessment Anesthesia Assessment: Chart Reviewed
== END ==
PROVIDERS: PCP Internal Medicine; Visit Provider Hospitalist
DX: R91.8 Other nonspecific abnormal finding of lung field (principal); Z53.8 Procedure and treatment not carried out for other reasons

== ENCOUNTER 2024-03-31 08:41 | Outpatient (AMB) | payer MEDICARE, MEDICAID, SELFPAY ==
[2024-03-31 08:43] VITALS: BMI 25.8
--- NOTE | 2024-03-31 08:43 | A.OFFVIS_ITS ---
Vital Signs 3 03/31/24 08:43 Height 5 ft 9 in Weight 175 lb BMI 25.8 Intake Visit Reasons: New Patient/Lung Mass Laser Technician Required: No Allergies atorvastatin Adverse Reaction (Intermediate, Verified 03/31/24 08:44) leg pain HPI Comments Details: The patient has a telehealth new patient visit. The patient is a 63-year-old gentleman with a history of smoking in addition to CAD with an myocardial infarction about 10 years ago, CVA, now participating in the lung cancer screening program. The patient has had some issues with cough productive in nature with clear phlegm. Denies any hemoptysis. He did undergo a CT scan through the lung cancer screening program which we personally reviewed. It appears that he has large right hilar mass concerning for malignancy. Initially he was scheduled to undergo a endobronchial ultrasound bronchoscopy. But, due to the fact the patient does have a cardiac history is felt that he needed to have a cardiology preoperative evaluation prior to any anesthesia. Therefore, the patient did undergo an EKG and also blood work which were reassuring. He was also set up for a cardiology evaluation but apparently he missed the appointment. In the meantime the patient did undergo a PET scan. The PET scan again showed significantly avid right hilar mass consistent with malignancy. But he also had small ramus bone lesion. The suspicion was that this could be a metastatic lesion. Therefore we did talk to our Interventional Radiology to see if they can perform a CT-guided biopsy of the question metastatic lesion. However, they felt that it was too minimal activity and low yield. Therefore they also commented on a CT-guided biopsy but was to the in therefore too risky to do a CT-guided biopsy. It was recommended he undergo an endobronchial biopsy. I did talk to the patient clearly about the issues. He understands that they has a concerning condition needs to be dealt with as far as diagnosis concerned. We will reach out to Cardiology again to make him a preoperative eval in order for him to undergo an endobronchial ultrasound bronchoscopy with biopsy. The patient also needs to have PFTs done. Will try to facilitate this as quick as possible knowing the issues of concern. The patient understands the urgency of the matter and will try to make all his appointments. [facility] Medical History (Updated 03/31/24 @ 09:08 by Jeffery Montesinos MD) Abnormal PET scan of lung Lung mass History of CVA with residual deficit Coronary artery disease History of non-ST elevation myocardial infarction (NSTEMI) Essential hypertension Dyslipidemia Mild intermittent asthma Nicotine dependence, cigarettes, uncomplicated History of retinal detachment Glaucoma Vitreous floaters of right eye Colonoscopy refused Surgical History History of heart artery stent History of cataract surgery History of eye surgery Family History Father HTN (hypertension) Diabetes mellitus Brother Substance use disorder Paternal Uncle Cancer Social History Housing: House Alcohol intake: never Patient Tobacco Use Status: Current everyday Tobacco user Cigarette Packs Per Day: 1 Cigarettes Per Day: 20 Years Smoked: (onset 17yo, 1-2ppd x 46yrs, 60+PYH) e-Cigarette/Vaping Use: Never Used service: No Current occupational status: unemployed Cognitive needs: No Hearing needs: No Vision needs: No Review of Systems Const Reports no additional complaints and Denies headache(s) Eyes Reports loss of vision, Reports eye pain (Positive photophobia), Reports seeing flashes and Reports spots in vision ENT Denies dizziness and Denies headache(s) Card Reports no additional complaints Resp Reports chest congestion and Reports cough GI Reports no additional complaints Musc Reports abnormal gait, Reports limited range of motion and Reports stiffness Neuro Reports abnormal gait, Denies dizziness, Denies headache(s) and Reports loss of vision Endo Reports no additional complaints Manny/Lymph Reports no additional complaints Physical Exam Vital Signs: BMI result Body Mass Index 25.8 Const General: comfortable Orientation/consciousness: patient oriented x3 Resp Effort & Inspection: normal respiratory effort and able to speak in complete sentences Neuro General: patient oriented x3 Telehealth Telehealth Telehealth Platform: Telephone Location of provider rendering services: practice address Location of patient: address on file Patient Identification confirmed using: Name, : Yes Telehealth method: voice only Patient verbally consented to treatment: Yes Patient verbally consented to billing insurance company: Yes Patient informed of any privacy concerns related to visit: Yes Results Reviewed Results Reviewed: Assessment & Plan Assessment & Plan (1) Abnormal PET scan of lung: Code(s): R94.2 - Abnormal results of pulmonary function studies Category: Medical (2) Lung mass: Code(s): R91.8 - Other nonspecific abnormal finding of lung field Category: Medical (3) Coronary artery disease: Comment: (Hx NSTEMI in 10/2016, s/p BMS to mid circumflex Code(s): I25.10 - Atherosclerotic heart disease of [place] coronary artery without angina pectoris Category: Medical Qualifiers: Associated angina: without angina Coronary Disease-Associated Artery/Lesion type: [place] artery [place] vs. transplanted heart: [place] heart Qualified Code(s): I25.10 - Atherosclerotic heart disease of [place] coronary artery without angina pectoris Plan Requesting reschedule cardiology pre op as soon as possible. Needs urgent EBUS for biopsy of hilar mass concerning for malignancy once a diagnosis is established the ?ramus lesion also may need to be biopsied for proper staging PFTs Orders: Orders 2 PFT pulmonary function test Today R91.8 - Other nonspecific abnormal finding of lung field Coding Level of Care Code Tele New Pt Level 5 (93533) Diagnoses Abnormal PET scan of lung R94.2 Lung mass R91.8 Coronary artery disease involving [place] coronary artery of [place] heart without angina pectoris I25.10 Associated angina: without angina Coronary Disease-Associated Artery/Lesion type: [place] artery [place] vs. transplanted heart: [place] heart Time Spent (min) 45
--- OUTSIDE RECORDS SUMMARY | 2024-03-31 08:44 | XMS_ITS | Continuity of Care Document ---
Author Organization [facility] Address [address] [place] [address]- Care Team Providers Care Forestry Adviser Name Role Phone Crow BROWN, India Noriega Primary Care Physician [place] [facility] [place] 03/25/21 - 07/23/21 [facility] [address] [place] [address]- Attending Physician: Feng Granados MD Admitting Physician: Feng Granados MD Allergies, Adverse Reactions, Alerts No Known Allergies Immunizations Given and Recorded Vaccine Date Status Refusal Reason pneumococcal 23-valent vaccine 11/19/16 Given Medications aspirin 81 mg oral delayed release tablet 81 mg, 1, tablet, By Mouth, Daily, # 30 tablet, Refills 0, Tot. Refills 0, Maintenance, 11/19/16 16:05:22, Route to Pharmacy Electronically, [id number], [facility] Start Date: 11/19/16 Stop Date: 12/19/16 Status: Ordered atorvastatin 80 mg oral tablet 1 tablet = 80 mg, By Mouth, Daily at bedtime, # 90 tablet, 3 Refills, Maintenance, 09/23/20 8:27:00EDT, Tablet, [id number], 175.26, cm, 04/29/20 13:08:00 EST, Height Start Date: 09/23/20 Stop Date: 09/18/21 Status: Ordered lisinopril 10 mg oral tablet 10 mg, 1, tablet, By Mouth, Daily, please keep scheduled appt 03/14, # 90 tablet, Refills 0, Tot. Refills 0, Maintenance, 02/23/18 14:44:02 EDT, Route to Pharmacy Electronically, [id number], [facility]/pharmacy #[id number] Start Date: 02/23/18 Stop Date: 05/24/18 Status: Ordered metoprolol 25 mg oral tablet, extended release 25 mg, 1, tablet, By Mouth, Daily, # 90 tablet, Refills 3, Tot. Refills 3, Maintenance, 03/30/17 13:43:16, Route to Pharmacy Electronically, [id number], [facility]/pharmacy #[id number] Start Date: 03/30/17 Stop Date: 03/25/18 Status: Ordered Nitrostat 0.4 mg sublingual tablet 1 tablet = 0.4 mg, Sublingual, Every 5 minutes, PRN Chest pain, not to exceed 3 doses/15 min,if pain persists,seek medical attention, # 100 tablet, 1 Refills, Maintenance, 10/19/19 13:51:00 EDT, Tablet, [facility]/pharmacy #[id number], 175.26, cm, 03/14/19 13:05:0... Start Date: 10/19/19 Status: Ordered Social History Social History Type Response Smoking Status Current every day sm oker; Type: Cigarettes; Previous treatment: Counseling; Previous treatment: Nicotine replacement; Interested in cessation: Yes; Tobacco use times per day: down to 2 cigaretts per day; Number of years: 40; Total pack years: 80; Started at age: 15; entered on: 11/27/16 Sex
--- OUTSIDE RECORDS SUMMARY | 2024-03-31 08:44 | XMS_ITS | Continuity of Care Document ---
Author Organization [facility] Address [address] [place] [address]- Care Team Providers Care Insulation Cutter And Former Name Role Phone Crow BROWN, India Noriega Primary Care Physician Encounter [facility] [place] Date(s): 04/25/19 - 07/07/19 [facility] [address] [place] [address]- [facility] Attending Physician: Manfred Ruiz MD Admitting Physician: Manfred Ruiz MD Referring Physician: India Maria MD Allergies, Adverse Reactions, Alerts Substance Reaction Severity Status NKA Active Immunizations Given and Recorded Vaccine Date Status Refusal Reason pneumococcal 23-valent vaccine 11/19/16 Given Medications aspirin 81 mg oral delayed release tablet 81 mg, 1, tablet, By Mouth, Daily, # 30 tablet, Refills 0, Tot. Refills 0, Maintenance, 11/19/16 16:05:22, Route to Pharmacy Electronically, [id number], [facility] Start Date: 11/19/16 Stop Date: 12/19/16 Status: Ordered aspirin 81 mg oral delayed release tablet 81 mg, 1, tablet, By Mouth, Daily, # 30 tablet, Refills 11, Tot. Refills 11, Maintenance, 12/24/16 9:00:37, Route to Pharmacy Electronically, [id number], [facility]/pharmacy #[id number] Start Date: 12/24/16 Stop Date: 12/19/17 Status: Ordered atorvastatin 80 mg oral tablet 1 tablet = 80 mg, By Mouth, Daily at bedtime, # 90 tablet, 0 Refills, Maintenance, Tablet, Route toPharmacy Electronically, [id number], [facility]/pharmacy #[id number] Start Date: 02/23/18 Stop Date: 05/24/18 Status: Ordered lisinopril 10 mg oral tablet 10 mg, 1, tablet, By Mouth, Daily, please keep scheduled appt 03/14, # 90 tablet, Refills 0, Tot. Refills 0, Maintenance, 02/23/18 14:44:02 EDT, Route to Pharmacy Electronically, [id number], [facility]/pharmacy #[id number] Start Date: 02/23/18 Stop Date: 05/24/18 Status: Ordered metoprolol 25 mg oral tablet, extended release 25 mg, 1, tablet, By Mouth, Daily, # 90 tablet, Refills 3, Tot. Refills 3, Maintenance, 03/30/17 13:43:16, Route to Pharmacy Electronically, [id number], [facility]/pharmacy #[id number] Start Date: 03/30/17 Stop Date: 03/25/18 Status: Ordered Nitrostat 0.4 mg sublingual tablet 1 tablet = 0.4 mg, Sublingual, Every 5 minutes, PRN Chest pain, not to exceed 3 doses/15 min,if pain persists,seek medical attention, # 100 tablet, 0 Refills, Maintenance, 03/14/18 13:48:36 EDT, Tablet Start Date: 03/14/18 Status: Ordered Social History Social History Type Response Smoking Status Current every day sm oker; Type: Cigarettes; Previous treatment: Counseling; Previous treatment: Nicotine replacement; Interested in cessation: Yes; Tobacco use times per day: down to 2 cigaretts per day; Number of years: 40; Total pack years: 80; Started at age: 15; entered on: 11/27/16 Sex
--- OUTSIDE RECORDS SUMMARY | 2024-03-31 08:44 | XMS_ITS | Continuity of Care Document ---
Author Organization [facility] Address [address] [place] [address]- Care Team Providers Care Livestock Exhibitor Name Role Phone Crow BROWN, India Noriega Primary Care Physician Encounter [facility] Date(s): 04/29/20 - 05/29/20 [facility] [address] [place], [place] [address] Attending Physician: Manfred Ruiz MD Admitting Physician: Manfred Ruiz MD Referring Physician: Manfred Ruiz MD Allergies, Adverse Reactions, Alerts Substance Reaction Severity Status NKA Active Immunizations Given and Recorded Vaccine Date Status Refusal Reason pneumococcal 23-valent vaccine 11/19/16 Given Medications aspirin 81 mg oral delayed release tablet 81 mg, 1, tablet, By Mouth, Daily, # 30 tablet, Refills 0, Tot. Refills 0, Maintenance, 11/19/16 16:05:22, Route to Pharmacy Electronically, [id number], [facility] Start Date: 11/19/16 Stop Date: 12/19/16 Status: Ordered atorvastatin 80 mg oral tablet 1 tablet = 80 mg, By Mouth, Daily at bedtime, # 90 tablet, 3 Refills, Maintenance, 07/17/19 12:12:00 EST, Tablet, [id number], 175.26, cm, 03/14/19 13:05:00 EDT, Height Start Date: 07/17/19 Stop Date: 07/11/20 Status: Ordered lisinopril 10 mg oral tablet 10 mg, 1, tablet, By Mouth, Daily, please keep scheduled appt 03/14, # 90 tablet, Refills 0, Tot. Refills 0, Maintenance, 02/23/18 14:44:02 EDT, Route to Pharmacy Electronically, [id number], [facility]/pharmacy #[id number] Start Date: 02/23/18 Stop Date: 05/24/18 Status: Ordered metoprolol 25 mg oral tablet, extended release 25 mg, 1, tablet, By Mouth, Daily, # 90 tablet, Refills 3, Tot. Refills 3, Maintenance, 03/30/17 13:43:16, Route to Pharmacy Electronically, [id number], [facility]/pharmacy #[id number] Start Date: 03/30/17 Stop Date: 03/25/18 Status: Ordered Nitrostat 0.4 mg sublingual tablet 1 tablet = 0.4 mg, Sublingual, Every 5 minutes, PRN Chest pain, not to exceed 3 doses/15 min,if pain persists,seek medical attention, # 100 tablet, 1 Refills, Maintenance, 10/19/19 13:51:00 EDT, Tablet, [facility]/pharmacy #[id number], 175.26, cm, 03/14/19 13:05:0... Start Date: [...]
--- OUTSIDE RECORDS SUMMARY | 2024-03-31 08:44 | XMS_ITS | Continuity of Care Document ---
Author Organization [facility] Address [address] [address]- Care Team Providers Care Payroll Lead Name Role Phone Crow BROWN, India Noriega Primary Care Physician [place] [facility] [place](s): 04/29/20 - 06/13/20 [place] [address] [address]- Attending Physician: Manfred Ruiz MD Admitting Physician: [...] Maintenance, 11/19/16 16:05:22, Route to Pharmacy Electronically, [id number], [facility] Start Date: 11/19/16 Stop Date: 12/19/16 Status: Ordered atorvastatin 80 mg oral tablet 1 tablet = 80 mg, By Mouth, Daily at bedtime, # 90 tablet, 3 Refills, Maintenance, 07/17/19 12:12:00 EST, Tablet, [facility]/pharmacy #[id number], 175.26, cm, 03/14/19 13:05:00 EDT, Height Start Date: 07/17/19 Stop Date: 07/11/20 Status: Ordered lisinopril 10 mg oral tablet 10 mg, 1, tablet, By Mouth, Daily, please keep scheduled appt 03/14, # 90 tablet, Refills 0, Tot. Refills 0, Maintenance, 02/23/18 14:44:02 EDT, Route to Pharmacy Electronically, [id number], [facility]/pharmacy #[id number] Start Date: 02/23/18 Stop Date: 05/24/18 Status: Ordered metoprolol 25 mg oral tablet, extended release 25 mg, 1, tablet, By Mouth, Daily, # 90 tablet, Refills 3, Tot. Refills 3, Maintenance, 03/30/17 13:43:16, Route to Pharmacy Electronically, [id number], [facility]/pharmacy #[id number] Start Date: 03/30/17 Stop Date: 03/25/18 Status: Ordered Nitrostat 0.4 mg sublingual tablet 1 tablet = 0.4 mg, Sublingual, Every 5 minutes, PRN Chest pain, not to exceed 3 doses/15 min,if pain persists,seek medical attention, # 100 tablet, 1 Refills, Maintenance, 10/19/19 13:51:00 EDT, Tablet, [id number], 175.26, cm, 03/14/19 13:05:0... Start Date: 10/19/19 Status: Ordered Social History Social History Type Response Smoking Status Current every day corky gonzalez; Type: Cigarettes; Previous treatment: Counseling; Previous treatment: Nicotine replacement; Interested in cessation: Yes; Tobacco use times per day: down to 2 cigaretts per day; Number of years: 40; Total pack years: 80; Started at age: 15; entered on: 11/27/16 Sex
--- OUTSIDE RECORDS SUMMARY | 2024-03-31 08:44 | XMS_ITS | Continuity of Care Document ---
Author Organization [facility] Address [address] [place] [address]- Care Team Providers Care County Engineer Name Role Phone Crow BROWN, India Noriega Primary Care Physician Encounter [facility] [place] Date(s): 07/17/20 - 08/16/20 [facility] [address], [place] [address] Attending Physician: Casper Neely Admitting Physician: Casper Neely Referring Physician: AdmtrCasper Allergies, Adverse Reactions, Alerts Substance Reaction Severity Status NKA Active Immunizations Given and Recorded Vaccine Date Status Refusal Reason pneumococcal 23-valent vaccine 11/19/16 Given Medications aspirin 81 mg oral delayed release tablet 81 mg, 1, tablet, By Mouth, Daily, # 30 tablet, Refills 0, Tot. Refills 0, Maintenance, 11/19/16 16:05:22, Route to Pharmacy Electronically, [id number], [facility] Start Date: 11/19/16 Stop [...] 02/23/18 14:44:02 EDT, Route to Pharmacy Electronically, [id number], [facility]/pharmacy #[id number] Start Date: 02/23/18 Stop Date: 05/24/18 Status: Ordered metoprolol 25 mg oral tablet, extended release 25 mg, 1, tablet, By Mouth, Daily, # 90 tablet, Refills 3, Tot. Refills 3, Maintenance, 03/30/17 13:43:16, Route to Pharmacy Electronically, [id number], [facility]/pharmacy #[id number] Start Date: 03/30/17 Stop Date: [...]
--- OUTSIDE RECORDS SUMMARY | 2024-03-31 08:44 | XMS_ITS | Continuity of Care Document ---
Author Organization [facility] Address [address] [place] [address]- Care Team Providers Care Packing Room Inspector Name Role Phone Crow BROWN, India Noriega Primary Care Physician Encounter [facility] [place] Date(s): 06/23/21 - 07/23/21 [facility] [address] [place] [address]- Attending Physician: Casper Neely Admitting Physician: AdmCasper cortez Referring Physician: Admtr Ar8 Allergies, Adverse Reactions, Alerts No Known Allergies Immunizations Given and Recorded Vaccine Date Status Refusal Reason pneumococcal 23-valent vaccine 11/19/16 Given Medications aspirin 81 mg oral delayed release tablet 81 mg, 1, tablet, By Mouth, Daily, # 30 tablet, Refills 0, Tot. Refills 0, Maintenance, 11/19/16 16:05:22, Route to Pharmacy Electronically, [id number], [facility] Start Date: 11/19/16 Stop [...] 02/23/18 14:44:02 EDT, Route to Pharmacy Electronically, [id number], [facility]/pharmacy #[id number] Start Date: 02/23/18 Stop Date: 05/24/18 Status: Ordered metoprolol 25 mg oral tablet, extended release 25 mg, 1, tablet, By Mouth, Daily, # 90 tablet, Refills 3, Tot. Refills 3, Maintenance, 03/30/17 13:43:16, Route to Pharmacy Electronically, [id number], [facility]/pharmacy #[id number] Start Date: 03/30/17 Stop Date: 03/25/18 Status: Ordered Nitrostat 0.4 mg sublingual tablet 1 tablet = 0.4 mg, Sublingual, Every 5 minutes, PRN Chest pain, not to exceed 3 doses/15 min,if pain persists,seek medical attention, # 100 tablet, 1 Refills, Maintenance, 10/19/19 13:51:00 EDT, Tablet, [facility]/pharmacy #[id number], 175.26, cm, 03/14/19 13:05:0... Start [...]
--- OUTSIDE RECORDS SUMMARY | 2024-03-31 08:44 | XMS_ITS | Continuity of Care Document ---
Author Organization [facility] Address [address] [place] [address]- Care Team Providers Care Dental Hygiene Teacher Name Role Phone Crow BROWN, India Noriega Primary Care Physician Encounter [facility] [place] Date(s): 07/09/20 - 08/16/20 [facility] [address] [place], [place] [address] Attending Physician: Joseph BROWN, Manfred Ortiz Admitting Physician: Manfred Ruiz MD Referring Physician: Crow BROWN , India Noriega Allergies, Adverse Reactions, Alerts Substance Reaction Severity Status NKA Active Immunizations Given and Recorded Vaccine Date Status Refusal Reason pneumococcal 23-valent vaccine 11/19/16 Given Medications aspirin 81 mg oral delayed release tablet 81 mg, 1, tablet, By Mouth, Daily, # 30 tablet, Refills 0, Tot. Refills 0, Maintenance, 11/19/16 16:05:22, Route to Pharmacy Electronically, [id number], [facility] Start Date: 11/19/16 Stop Date: [...] 02/23/18 14:44:02 EDT, Route to Pharmacy Electronically, [id number], [facility]/pharmacy #[id number] Start Date: 02/23/18 Stop Date: 05/24/18 Status: Ordered metoprolol 25 mg oral tablet, extended release 25 mg, 1, tablet, By Mouth, Daily, # 90 tablet, Refills 3, Tot. Refills 3, Maintenance, 03/30/17 13:43:16, Route to Pharmacy Electronically, [id number], [facility]/pharmacy #[id number] Start Date: 03/30/17 Stop Date: 03/25/18 Status: Ordered Nitrostat 0.4 mg sublingual tablet 1 tablet = 0.4 mg, Sublingual, Every 5 minutes, PRN Chest pain, not to exceed 3 doses/15 min,if pain persists,seek medical attention, # 100 tablet, 1 Refills, Maintenance, 10/19/19 13:51:00 EDT, Tablet, [facility]/pharmacy #[id number], 175.26, cm, 03/14/19 13:05:0... Start Date: [...]
--- OUTSIDE RECORDS SUMMARY | 2024-03-31 08:44 | XMS_ITS | Continuity of Care Document ---
Author Organization [facility] Address [address] [place] [address]- Care Team Providers Care Web Analytics Developer Name Role Phone Crow BROWN, India Noriega Primary Care Physician [place] [facility] [place](s[place] 03/19/20 - 04/18/20 [facility] [address] [place] [address]- [facility] Attending Physician: Casper Neely Admitting Physician: Casper [...] Maintenance, 11/19/16 16:05:22, Route to Pharmacy Electronically, [id number], [facility] Start Date: 11/19/16 Stop Date: 12/19/16 Status: Ordered aspirin 81 mg oral delayed release tablet 81 mg, 1, tablet, By Mouth, Daily, # 30 tablet, Refills 11, Tot. Refills 11, Maintenance, 12/24/16 9:00:37, Route to Pharmacy Electronically, [id number], [facility]/pharmacy #[id number] Start Date: 12/24/16 Stop Date: 12/19/17 Status: Ordered atorvastatin 80 mg oral tablet 1 tablet = 80 mg, By Mouth, Daily at bedtime, # 90 tablet, 3 Refills, Maintenance, 07/17/19 12:12:00 EST, Tablet, [facility]/pharmacy #[id number], 175.26, cm, 03/14/19 13:05:00 EDT, Height Start Date: 07/17/19 Stop Date: 07/11/20 Status: Ordered lisinopril 10 mg oral tablet 10 mg, 1, tablet, By Mouth, Daily, please keep scheduled appt 03/14, # 90 tablet, Refills 0, Tot. Refills 0, Maintenance, 02/23/18 14:44:02 EDT, Route to Pharmacy Electronically, [id number], [facility]/pharmacy #[id number] Start Date: 02/23/18 Stop Date: 05/24/18 Status: Ordered metoprolol 25 mg oral tablet, extended release 25 mg, 1, tablet, By Mouth, Daily, # 90 tablet, Refills 3, Tot. Refills 3, Maintenance, 03/30/17 13:43:16, Route to Pharmacy Electronically, [id number], [facility]/pharmacy #[id number] Start Date: 03/30/17 Stop Date: 03/25/18 Status: Ordered Nitrostat 0.4 mg sublingual tablet 1 tablet = 0.4 mg, Sublingual, Every 5 minutes, PRN Chest pain, not to exceed 3 doses/15 min,if pain persists,seek medical attention, # 100 tablet, 1 Refills, Maintenance, 10/19/19 13:51:00 EDT, Tablet, [facility]/pharmacy #[id number], 175.26, cm, 03/14/19 13:05:0... Start [...]
--- OUTSIDE RECORDS SUMMARY | 2024-03-31 08:44 | XMS_ITS | Continuity of Care Document ---
Author Organization [facility] Address [address] [place] [address]- Care Team Providers Care Assembler Installer General Name Role Phone Crow BROWN, India Noriega Primary Care Physician [place] [facility] [place](s): 06/07/19 - 06/17/19 [facility] [address] [place] [address]- [facility] Attending Physician: Casper Neely Admitting Physician: AdmCasper cortez Referring Physician: AdmtrCasper Allergies, Adverse Reactions, Alerts Substance Reaction Severity Status NKA Active Immunizations Given and Recorded Vaccine Date Status Refusal Reason pneumococcal 23-valent vaccine 11/19/16 Given Medications aspirin 81 mg oral delayed release tablet 81 mg, 1, tablet, By Mouth, Daily, # 30 tablet, Refills 0, Tot. Refills 0, Maintenance, 11/19/16 16:05:22, Route to Pharmacy Electronically, [id number], [facility] Start Date: 11/19/16 Stop Date: 12/19/16 Status: Ordered aspirin 81 mg oral delayed release tablet 81 mg, 1, tablet, By Mouth, Daily, # 30 tablet, Refills 11, Tot. Refills 11, Maintenance, 12/24/16 9:00:37, Route to Pharmacy Electronically, [id number], [facility]/pharmacy #[id number] Start Date: 12/24/16 Stop Date: 12/19/17 Status: Ordered atorvastatin 80 mg oral tablet 1 tablet = 80 mg, By Mouth, Daily at bedtime, # 90 tablet, 0 Refills, Maintenance, Tablet, Route toPharmacy Electronically, [id number], [facility]/pharmacy #[id number] Start Date: 02/23/18 Stop Date: 05/24/18 Status: Ordered lisinopril 10 mg oral tablet 10 mg, 1, tablet, By Mouth, Daily, please keep scheduled appt 03/14, # 90 tablet, Refills 0, Tot. Refills 0, Maintenance, 02/23/18 14:44:02 EDT, Route to Pharmacy Electronically, [id number], [facility]/pharmacy #[id number] Start Date: 02/23/18 Stop Date: 05/24/18 Status: Ordered metoprolol 25 mg oral tablet, extended release 25 mg, 1, tablet, By Mouth, Daily, # 90 tablet, Refills 3, Tot. Refills 3, Maintenance, 03/30/17 13:43:16, Route to Pharmacy Electronically, [id number], [facility]/pharmacy #[id number] Start Date: 03/30/17 Stop Date: 03/25/18 Status: Ordered Nitrostat 0.4 mg sublingual tablet 1 tablet = 0.4 mg, Sublingual, Every 5 minutes, PRN Chest pain, not to exceed 3 doses/15 min,if pain persists,seek medical attention, # 100 tablet, 0 Refills, Maintenance, 03/14/18 13:48:36 EDT, Tablet Start Date: 03/14/18 Status: Ordered Social History Social History Type Response Smoking Status Current every day corky oker; Type: Cigarettes; Previous treatment: Counseling; Previous treatment: Nicotine replacement; Interested in cessation: Yes; Tobacco use times per day: down to 2 cigaretts per day; Number of years: 40; Total pack years: 80; Started at age: 15; entered on: 11/27/16 Sex
--- OUTSIDE RECORDS SUMMARY | 2024-03-31 08:44 | XMS_ITS | Continuity of Care Document ---
Author Organization [facility] Address [address] [place] [address]- Care Team Providers Care Battery Assembler Dry Cell Name Role Phone Crow BROWN, India Noriega Primary Care Physician Encounter [facility] [place] ACCT R [id number] Date(s): 07/03/20 - 07/10/20 [facility] [address] [place], [place] [address] Attending Physician: Joseph BROWN, Manfred [...] Maintenance, 11/19/16 16:05:22, Route to Pharmacy Electronically, [id number], [facility] Start Date: 11/19/16 Stop Date: [...] 02/23/18 14:44:02 EDT, Route to Pharmacy Electronically, [id number], [facility]/pharmacy #[id number] Start Date: 02/23/18 Stop Date: 05/24/18 Status: Ordered metoprolol 25 mg oral tablet, extended release 25 mg, 1, tablet, By Mouth, Daily, # 90 tablet, Refills 3, Tot. Refills 3, Maintenance, 03/30/17 13:43:16, Route to Pharmacy Electronically, [id number], [facility]/pharmacy #[id number] Start Date: 03/30/17 Stop Date: 03/25/18 Status: Ordered Nitrostat 0.4 mg sublingual tablet 1 tablet = 0.4 mg, Sublingual, Every 5 minutes, PRN Chest pain, not to exceed 3 doses/15 min,if pain persists,seek medical attention, # 100 tablet, 1 Refills, Maintenance, 10/19/19 13:51:00 EDT, Tablet, [facility]/pharmacy #[id number], 175.26, cm, 03/14/19 13:05:0... Start Date: [...]
--- OUTSIDE RECORDS SUMMARY | 2024-03-31 08:44 | XMS_ITS | Continuity of Care Document ---
Author Organization [facility] Address [address] [place] [address]- Care Team Providers Care Client Liaison Name Role Phone Crow BROWN, India Noriega Primary Care Physician Encounter [facility] ACCT R [id number] Date(s): 05/24/20 - 06/23/20 [facility] [address] [place], [place] [address] Attending Physician: Casper Neely Admitting Physician: Casper [...] Maintenance, 11/19/16 16:05:22, Route to Pharmacy Electronically, [id number], [facility] Start Date: 11/19/16 Stop Date: [...] 02/23/18 14:44:02 EDT, Route to Pharmacy Electronically, [id number], [facility]/pharmacy #[id number] Start Date: 02/23/18 Stop Date: 05/24/18 Status: Ordered metoprolol 25 mg oral tablet, extended release 25 mg, 1, tablet, By Mouth, Daily, # 90 tablet, Refills 3, Tot. Refills 3, Maintenance, 03/30/17 13:43:16, Route to Pharmacy Electronically, [id number], [facility]/pharmacy #[id number] Start Date: [...]
--- OUTSIDE RECORDS SUMMARY | 2024-03-31 08:44 | XMS_ITS | Continuity of Care Document ---
Author Organization [facility] Address [address] [place] [address]- Care Team Providers Care Elementary Classroom Teacher Name Role Phone Crow BROWN, India Noriega Primary Care Physician Encounter [facility] [place] Date(s): 07/15/20 - 08/14/20 [facility] [address] [place], [place] [address] Allergies, Adverse Reactions, Alerts Substance Reaction Severity Status NKA Active Immunizations Given and Recorded Vaccine Date Status Refusal Reason pneumococcal 23-valent vaccine 11/19/16 Given Medications aspirin 81 mg oral delayed release tablet 81 mg, 1, tablet, By Mouth, Daily, # 30 tablet, Refills 0, Tot. Refills 0, Maintenance, 11/19/16 16:05:22, Route to Pharmacy Electronically, [id number], [facility] Start Date: 11/19/16 Stop [...] 02/23/18 14:44:02 EDT, Route to Pharmacy Electronically, [id number], [facility]/pharmacy #[id number] Start Date: 02/23/18 Stop Date: 05/24/18 Status: Ordered metoprolol 25 mg oral tablet, extended release 25 mg, 1, tablet, By Mouth, Daily, # 90 tablet, Refills 3, Tot. Refills 3, Maintenance, 03/30/17 13:43:16, Route to Pharmacy Electronically, [id number], [facility]/pharmacy #[id number] Start Date: 03/30/17 Stop Date: 03/25/18 Status: Ordered Nitrostat 0.4 mg sublingual tablet 1 tablet = 0.4 mg, Sublingual, Every 5 minutes, PRN Chest pain, not to exceed 3 doses/15 min,if pain persists,seek medical attention, # 100 tablet, 1 Refills, Maintenance, 10/19/19 13:51:00 EDT, Tablet, [facility]/pharmacy #[id number], 175.26, cm, 03/14/19 13:05:0... Start Date: 10/19/19 Status: Ordered Social History Social History Type Response Smoking Status Current every day corky salgadoer; Type: Cigarettes; Previous treatment: Counseling; Previous treatment: Nicotine replacement; Interested in cessation: Yes; Tobacco use times per day: down to 2 cigaretts per day; Number of years: 40; Total pack years: 80; Started at age: 15; entered on: 11/27/16 Sex
--- OUTSIDE RECORDS SUMMARY | 2024-03-31 08:44 | XMS_ITS | Continuity of Care Document ---
Author Organization [facility] Address [address] [address]- Care Team Providers Care Channel Sales Director Name Role Phone Crow BROWN, India Noriega Primary Care Physician Encounter [facility] Date(s): 05/14/20 - 06/13/20 [facility] [address] [address]- Attending Physician: Casper Neely Admitting Physician: Casper [...] Maintenance, 11/19/16 16:05:22, Route to Pharmacy Electronically, [id number], [facility] Start Date: 11/19/16 Stop [...] 02/23/18 14:44:02 EDT, Route to Pharmacy Electronically, [id number], [facility]/pharmacy #[id number] Start Date: 02/23/18 Stop Date: 05/24/18 Status: Ordered metoprolol 25 mg oral tablet, extended release 25 mg, 1, tablet, By Mouth, Daily, # 90 tablet, Refills 3, Tot. Refills 3, Maintenance, 03/30/17 13:43:16, Route to Pharmacy Electronically, [id number], [facility]/pharmacy #[id number] Start Date: 03/30/17 [...]
--- OUTSIDE RECORDS SUMMARY | 2024-03-31 08:44 | XMS_ITS | Continuity of Care Document ---
Author Organization [facility] Address [address] [place] [address]- Care Team Providers Care Decorating And Assembly Supervisor Name Role Phone Crow BROWN, India Noriega Primary Care Physician Encounter [facility] [place] Date(s): 12/20/19 - 04/18/20 [facility] [address] [place] [address]- [facility] Attending Physician: Roberta BROWN, Feng Nugent Admitting Physician: Feng Granados MD Referring Physician: Crow BROWN , India Noriega Allergies, Adverse Reactions, Alerts Substance Reaction Severity Status NKA Active Immunizations Given and Recorded Vaccine Date Status Refusal Reason pneumococcal 23-valent vaccine 11/19/16 Given Medications aspirin 81 mg oral delayed release tablet 81 mg, 1, tablet, By Mouth, Daily, # 30 tablet, Refills 0, Tot. Refills 0, Maintenance, 11/19/16 16:05:22, Route to Pharmacy Electronically, [id number], [facility] Start Date: 11/19/16 Stop Date: 12/19/16 Status: Ordered aspirin 81 mg oral delayed release tablet 81 mg, 1, tablet, By Mouth, Daily, # 30 tablet, Refills 11, Tot. Refills 11, Maintenance, 12/24/16 9:00:37, Route to Pharmacy Electronically, [id number], [facility]/pharmacy #[id number] Start Date: 12/24/16 Stop Date: 12/19/17 Status: Ordered atorvastatin 80 mg oral tablet 1 tablet = 80 mg, By Mouth, Daily at bedtime, # 90 tablet, 3 Refills, Maintenance, 07/17/19 12:12:00 EST, Tablet, [facility]/pharmacy #[id number], 175.26, cm, 03/14/19 13:05:00 EDT, Height Start Date: 07/17/19 Stop Date: 07/11/20 Status: Ordered lisinopril 10 mg oral tablet 10 mg, 1, tablet, By Mouth, Daily, please keep scheduled appt 03/14, # 90 tablet, Refills 0, Tot. Refills 0, Maintenance, 02/23/18 14:44:02 EDT, Route to Pharmacy Electronically, [id number], [facility]/pharmacy #[id number] Start Date: 02/23/18 Stop Date: 05/24/18 Status: Ordered metoprolol 25 mg oral tablet, extended release 25 mg, 1, tablet, By Mouth, Daily, # 90 tablet, Refills 3, Tot. Refills 3, Maintenance, 03/30/17 13:43:16, Route to Pharmacy Electronically, [id number], [facility]/pharmacy #[id number] Start Date: 03/30/17 Stop Date: 03/25/18 Status: Ordered Nitrostat 0.4 mg sublingual tablet 1 tablet = 0.4 mg, Sublingual, Every 5 minutes, PRN Chest pain, not to exceed 3 doses/15 min,if pain persists,seek medical attention, # 100 tablet, 1 Refills, Maintenance, 10/19/19 13:51:00 EDT, Tablet, [facility]/pharmacy #[id number], 175.26, cm, 03/14/19 13:05:0... [...]
== END 2024-03-31 10:00 | disposition home or self-care (01) ==
LOC: HO.HPS 08:42
PROVIDERS: PCP Internal Medicine; Visit Provider Hospitalist
DX: R94.2 Abnormal results of pulmonary function studies (principal); R91.8 Other nonspecific abnormal finding of lung field; I25.10 Atherosclerotic heart disease of native coronary artery without angina pectoris
CPT/HCPCS: 99443

== ENCOUNTER → 2024-03-31 08:41 | Outpatient (BNVA) | payer MEDICARE, MEDICAID, SELFPAY | PROVIDERS: PCP Internal Medicine; Visit Provider Hospitalist ==

== ENCOUNTER 2024-04-04 | Outpatient (REF) | payer MEDICARE, MEDICAID, SELFPAY | END 2024-04-04 00:01 | disposition home or self-care (01) | LOC: CF | PROVIDERS: PCP Internal Medicine; Visit Provider Internal Medicine Cardiovascular Disease | DX: Z01.810 Encounter for preprocedural cardiovascular examination (principal); I25.10 Atherosclerotic heart disease of native coronary artery without angina pectoris | CPT/HCPCS: 99202 ==

== ENCOUNTER 2024-04-04 12:57 | Outpatient (AMB) | payer MEDICARE, MEDICAID, SELFPAY ==
[2024-04-04 13:01] VITALS: BP 124/76; PULSE 96; BMI 25.7
--- NOTE | 2024-04-04 13:01 | MHC.OFFVIS ---
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: No Allergies atorvastatin Adverse Reaction (Intermediate, Verified 03/31/24 08:44) leg pain Medication List - Last Reconciled 04/04/24 by Chucky Cruz MD albuterol sulfate 90 mcg/actuation 2 puffs inhalation Q6H PRN aspirin (Adult Low Dose Aspirin) 81 mg PO DAILY lisinopril 10 mg PO DAILY metoprolol succinate ER 25 mg PO DAILY nitroglycerin mg sublingual rosuvastatin 5 mg PO 3XW 3 months NS HPI Comments Details: I was consulted to see Livan in cardiology consultation today for preoperative cardiovascular risk stratification for suspected lung cancer to undergo endoscopic lung procedure under general anesthesia along with biopsy. Patient may subsequently require thoracic surgery as well. Patient in 2017 had a myocardial infarction, NSTEMI underwent a circumflex stenting. Since then has not had recent follow-up from Cardiology perspective. He has limited exercise capacity due to his stroke walks with a cane and has exertional shortness of breath. Denies any exertional chest pain. Has not been able to tolerate statins and currently on low-dose statin rosuvastatin 5 mg 3 times a week. Last LDL is 134 mg/dL which is not well optimized. Unfortunately continues to smoke. He also has prior history of CVA. [facility] Medical History Abnormal PET scan of lung Lung mass History of CVA with residual deficit Coronary artery disease History of non-ST elevation myocardial infarction (NSTEMI) Essential hypertension Dyslipidemia Mild intermittent asthma Nicotine dependence, cigarettes, uncomplicated History of retinal detachment Glaucoma Vitreous floaters of right eye Colonoscopy refused Surgical History History of heart artery stent History of cataract surgery History of eye surgery Family History Father HTN (hypertension) Diabetes mellitus Brother Substance use disorder Paternal Uncle Cancer Social History Housing: House Alcohol intake: never Patient Tobacco Use Status: Current everyday Tobacco user Cigarette Packs Per Day: 1 Cigarettes Per Day: 20 Years Smoked: (onset 17yo, 1-2ppd x 46yrs, 60+PYH) e-Cigarette/Vaping Use: Never Used service: No Current occupational status: unemployed Cognitive needs: No Hearing needs: No Vision needs: No Review of Systems Const Denies chills, Denies daytime sleepiness, Denies fatigue, Denies fever(s), Denies frequent falls, Denies poor appetite, Denies snoring, Denies stops breathing during sleep, Denies weakness, Denies weight gain and Denies weight loss Eyes Denies loss of vision ENT Denies dizziness and Denies hearing loss Card Denies chest pain, Denies claudication, Denies leg edema, Denies lightheadedness, Denies palpitations, Denies dyspnea, Denies dyspnea on exertion and Denies orthopnea Resp Denies cough, Denies excessive phlegm production, Denies dyspnea, Denies dyspnea on exertion, Denies snoring and Denies wheezing GI Denies abdominal pain, Denies hematochezia, Denies change in bowel habits, Denies nausea and Denies vomiting Denies dysuria and Denies urinary frequency Musc Denies arthralgias, Denies muscle weakness, Denies numbness and Denies other (frequent falls) Skin/Breast Denies nail changes and Denies rash Neuro Denies Abnormal speech present, Denies dizziness, Denies frequent falls, Denies loss of vision, Denies memory loss, Denies numbness and Denies weakness Psych Denies depression and Denies memory loss Endo Denies fatigue and Denies palpitations Manny/Lymph Reports easy bruising and Reports other (anemia) Aller/Immun Denies wheezing Physical Exam Vital Signs: Last Vital Signs Pulse 96 04/04/24 13:01 BP 124/76 04/04/24 13:01 BMI result Body Mass Index 25.7 Const General: cooperative, comfortable, no acute distress, alert, awake and poor hygiene Nutritional Appearance: average body habitus Orientation/consciousness: patient oriented x3 Limitations: ambulation with cane HEENT Head: Yes normocephalic and Yes atraumatic Neck Neck: Yes trachea midline, Yes supple and Yes no JVD Resp Effort & Inspection: normal respiratory effort Auscultation: clear to auscultation bilaterally and diminished lung sounds Cardio Jugular venous distension: no JVD Rate: regular rate Rhythm: regular rhythm Heart sounds: S1 normal heart sound present, S2 normal heart sound present, no click, no gallops, no murmurs and no rubs GI Auscultation: normal bowel sounds Skin General skin exam: no rashes or lesions noted Neuro General: patient oriented x3 and no focal motor deficits Speech: No Abnormal speech present Extrem General: Yes no clubbing, cyanosis or edema Assessment & Plan Assessment & Plan (1) Preoperative cardiovascular examination: Code(s): Z01.810 - Encounter for preprocedural cardiovascular examination Category: Medical Plan: Preoperative cardiovascular risk stratification this middle-aged man with prior CAD with limited exercise capacity and continued smoking and possible underlying COPD to undergo intermediate risk procedure under general anesthesia. He will require preoperative cardiovascular risk stratification with a vasodilating myocardial perfusion imaging to evaluate for myocardial ischemia that may alter his perioperative risk. This was discussed with him. Meanwhile he is strongly recommended to stop smoking. See below for further management. Will also obtain echocardiogram to assess for LV systolic and diastolic function. (2) Coronary artery disease: Comment: (Hx NSTEMI in 10/2016, s/p BMS to mid circumflex Code(s): I25.10 - Atherosclerotic heart disease of [place] coronary artery without angina pectoris Category: Medical Qualifiers: Coronary Disease-Associated Artery/Lesion type: [place] artery [place] vs. transplanted heart: [place] heart Associated angina: without angina Qualified Code(s): I25.10 - Atherosclerotic heart disease of [place] coronary artery without angina pectoris Plan: CAD with bare metal stent to circumflex artery for NSTEMI. Patient since then has had no further cardiac follow-up. Currently on aspirin therapy which should be continued for life. Also on lisinopril and metoprolol therapy with good control of his blood pressure. Continue the same. Advised target goal blood pressure less than 130/84. Advised to monitor blood pressure at home maintain a log. Low-salt diet was discussed. Complete abstinence from smoking was discussed as he has multiple comorbidities related to it. He understands that he is trying. He is on low-dose rosuvastatin but not well optimized LDL. Will consider prescribing ezetimibe 10 mg. Follow-up lipid panel in 3 months time. If LDL is not well optimized, should consider PCSK9 inhibitor therapy. Will follow up in the clinic in 6 months time, sooner p.r.n.. Thank you for allowing me to partake in his care Orders: Orders CA echo transthoracic complete Today I25.10 - Atherosclerotic heart disease of [place] coronary artery without angina pectoris CA lexiscan stress w ana rosa Today Z01.810 - Encounter for preprocedural cardiovascular examination Coding Level of Care Code New Pt Level 4 (06181) Complex EM visit Add On G2211 Diagnoses Preoperative cardiovascular examination Z01.810 Coronary artery disease involving [place] coronary artery of [place] heart without angina pectoris I25.10 Coronary Disease-Associated Artery/Lesion type: [place] artery [place] vs. transplanted heart: [place] heart Associated angina: without angina
== END 2024-04-04 13:23 | disposition home or self-care (01) ==
PROVIDERS: PCP Internal Medicine; Visit Provider Internal Medicine Cardiovascular Disease
DX: Z01.810 Encounter for preprocedural cardiovascular examination (principal); I25.10 Atherosclerotic heart disease of native coronary artery without angina pectoris
CPT/HCPCS: 99204; G2211

== ENCOUNTER → 2024-04-06 08:54 | Outpatient (REF) | payer MEDICARE, MEDICAID, SELFPAY ==
--- NOTE | ~2024-04-06 | NM_ITS ---
Lexiscan Myocardial perfusion study Indication: Preoperative cardiovascular examination Technique: The patient was brought in for a Lexiscan perfusion study on 04/06/2024 and was injected 0.4 mg of Lexiscan intravenously. Within a minute of this injection 30 mCi of sestamibi was given intravenously. Images were obtained using the SPECT gamma camera interlaced with the gating device. Images were obtained in supine position. Resting perfusion study was performed on 04/10/2024. Patient was administered 25 mCi of sestamibi intravenously at rest. Images were then obtained in supine position. Total DLP 73 mGy-cm. Images were processed with the software and compared side to side in short axis, horizontal long axis and vertical long axis views. Findings: Raw aquisition reviewed. The stress perfusion study showed no significant perfusion abnormality. Both uncorrected as well as CT attenuation corrected images were reviewed. The gated study shows normal LV systolic function with calculated LVEF of > 70%. LV cavity is normal in size. The gated study shows normal wall thickening and contraction of segments. Resting study shows no significant perfusion abnormality. Gating at rest reveals normal wall motion with ejection fraction at 70%. The findings are consistent with no clearly reversible or fixed perfusion abnormality. NM/NM ana rosa perf SPECT rest & str Impression: 1. Myocardial perfusion imaging study shows normal myocardial perfusion. 2. Gated LVEF is >70% during stress and 70% during rest. 3. Transient ischemic dilatation not present. EKG component of the test reported separately. Electronically signed by: Chris Charles MD 04/10/2024 05:13 PM EDT
--- NOTE | 2024-04-06 08:57 | CA_ITS ---
Acquisition Time: 2024-04-06 08:52:12 Total Exercise Time: 00:02:00 Test Indications: Dyspnea Medications: ALBUTEROL ASA LISINOPRIL METOPROLOL ROSUVASTATIN PRN SL NITRO Protocol: LEXISCAN Max HR: 116 BPM 72% of Pred: 159 BPM Max BP: 130/060 mmHG Max Work Load: 1.0 METS Pharmacological stress test with Lexiscan injection, while sitting and kicking his legs, with moderate shortness of breath, with isolated PACs, with normotensive response to injection, with nondiagnostic EKG for ischemia. In recovery he was treated with Aminophylline 75mg IVP to reverse Lexiscan. Nuclear images pending. Test reviewed with Dr Charles. Referred By: Chucky Cruz Overread By: KISHOR PITTMAN
== END ==
LOC: HO.CARD 08:54
PROVIDERS: PCP Internal Medicine; Visit Provider Internal Medicine Cardiovascular Disease
DX: Z01.810 Encounter for preprocedural cardiovascular examination (principal)
CPT/HCPCS: 78452; 93017; A9500; J0280; J2785

== ENCOUNTER → 2024-04-06 08:57 | Outpatient (BNV) | payer MEDICARE, MEDICAID, SELFPAY | PROVIDERS: PCP Internal Medicine; Visit Provider Nurse Practitioner Family | DX: R06.02 Shortness of breath (principal); I49.1 Atrial premature depolarization | CPT/HCPCS: 78452; 93016; 93018 ==

== ENCOUNTER → 2024-04-18 08:51 | Outpatient (REF) | payer MEDICARE, MEDICAID, SELFPAY ==
--- NOTE | 2024-04-18 08:53 | CA_ITS ---
Transthoracic Echocardiogram Patient (Last, First, Middle): Livan Catherine, Gender: Male Date of : 1960 Age: 63 Procedure Date: 04/18/2024 Procedure Type: Transthoracic Echocardiogram Location: OP Height: 175.26 cm Weight: 77.11 kg BSA: 1.93 m2 Heart Rate: 85 bpm BP: 130 / 68 mmHg Simulation Engineer: MIR Referring MD: Chucky Cruz MD Symptoms: I25.10 - Atherosclerotic heart disease of wrang[place] coronary artery without... Study Quality: Adequate ECG Rhythm: Sinus Conclusions: - The left ventricular systolic function is normal. The visually estimated ejection fraction is between 60-65%. - No obvious valvular pathology seen on this study. Findings Left Ventricle Normal left ventricular cavity size. The left ventricular systolic function is normal. The visually estimated ejection fraction is between 60-65%. There is no evidence of regional wall motion abnormalities. Diastolic function is normal for age. There is mild septal asymmetric hypertrophy. LV peak GLS -16.3%. Right Ventricle Normal right ventricular cavity size and systolic function. Atria Both atria are normal in size. Aortic Valve There is a normal trileaflet aortic valve. There is no aortic valve stenosis. There is no aortic valve regurgitation. Mitral Valve The mitral valve appears normal. There is no mitral valve regurgitation. There is no mitral valve stenosis. Pulmonic Valve The pulmonic valve is likely normal. Tricuspid Valve There is no tricuspid valve regurgitation. Tricuspid regurgitation envelope is inadequate for calculation of right ventricular systolic pressure. Great Vessels The asc aorta is normal in size. Venous The inferior vena cava is normal in size. Pericardium/Pleural There is no evidence of pericardial effusion. Prior Study Comparison No prior study available for comparison. Recommendations, Care & Conclusions No obvious valvular pathology seen on this study. Measurements 2D Linear Measurements IVSd: 1.15 0.6-0.9/0.6-1.0 cm LVIDd: 4.52 3.9-5.3/4.2-5.9 cm LVIDd Index: 2.34 2.4-3.2/2.2-3.1 cm/m2 LVIDs: 2.77 2.0-3.6 cm LVPWd: 0.77 0.7-1.1 cm LA Diam: 2.90 2.7-3.8/3.0-4.0 cm LAIDs Index: 1.50 1.5-2.3 cm/m2 LV Mass: 182.25 67-162/88-224 g LV Mass Index: 94.43 43-95/49-115 g/m2 LVOT Diam: 2.10 3.0+(-)1.3 cm 2D Systolic Function EF 4C: 67.90 >55% EF 2C: 50.60 >55% EF BiP: 59.20 >55% Mitral Valve MV Pk E: 0.77 MV PK A: 0.62 MV Decel Time: 184.00 E/A: 1.20 E'Lateral: 7.51 E'Medial: 5.11 E/E' Med: 15.00 E/E' Lat: 10.20 PHT: 54.00 MVA PHT: 4.07 Decel Cabell: 4.18 Aortic Valve AoV Pk Ashish: 1.40 AoV Pk Grad: 8.00 MERRILL: 2.57 LVOT LVOT Pk Ashish: 1.04 LVOT Mn Ashish: 0.60 LVOT VTI: 0.18 LVOT Pk Grad: 4.00 LVOT Mn Grad: 2.00 LVOT Diam: 2.10 LVOT Area: 3.46 Diastolic Function MV Pk E: 0.77 MV Pk A: 0.62 E/A: 1.20 E'Medial: 5.11 E/E' Med: 15.00 E' Laterial: 7.51 E/E' Lat: 10.20 Right Ventricle TAPSE (mm): 25.60 TVS' Ashish: 16.40 Tricuspid Valve RA Press: 3.00 Great Vessels Aorta Sinus of Valsalva: 3.20 2.0-3.5 cm Ao Asc: 3.10 2.1-3.4 cm Pulmonary Valve PV Pk Ashish: 0.93 Peak PV Grad: 3.00 Updated in Other Vendor System with Status of Final Chris Charles MD electronically signed on 04/18/2024 3:34:10 PM with status of Final
== END ==
LOC: HO.CARD 08:51
PROVIDERS: PCP Internal Medicine; Visit Provider Internal Medicine Cardiovascular Disease
DX: I25.10 Atherosclerotic heart disease of native coronary artery without angina pectoris (principal)
CPT/HCPCS: 93306; 93356

== ENCOUNTER → 2024-04-18 08:53 | Outpatient (BNV) | payer MEDICARE, MEDICAID, SELFPAY | PROVIDERS: PCP Internal Medicine; Visit Provider Internal Medicine | DX: I42.2 Other hypertrophic cardiomyopathy (principal) | CPT/HCPCS: 93306; 93356 ==

== ENCOUNTER 2024-04-20 11:12 | Day surgery (SDC) | payer MEDICARE, MEDICAID, SELFPAY ==
--- NOTE | 2024-04-19 08:27 | HO.ANESPROP2 ---
Documented by User: Suzanne Silva NP 04/19/24 08:29 HPI - Anesthesia Eval Consult details Narrative: 63yo M for Endoscopic Bronchial Ultrasound Followed [facility] cardiology, but has not seen since 2021: CAD, status post non-STEMI, 11/04, single vessel disease, mid circumflex, treated with a bare metal stent 3.0 x 20. Referred to [facility] cardiology. Stress and echo done and OK. Optimized to proceed. [facility] Active Problems Active Problems: All Active Problems Preoperative cardiovascular examination (Acute) Abnormal PET scan of lung (Acute) Pre-op evaluation (Acute) Lung mass (Acute) History of CVA with residual deficit (Acute) Coronary artery disease (Acute) Essential hypertension (Acute) Dyslipidemia (Acute) Mild intermittent asthma (Acute) Nicotine dependence, cigarettes, uncomplicated (Acute) Glaucoma (Acute) Vitreous floaters of right eye (Acute) Colonoscopy refused (Acute) Past Medical History Medical History Abnormal PET scan of lung Lung mass History of CVA with residual deficit Coronary artery disease History of non-ST elevation myocardial infarction (NSTEMI) Essential hypertension Dyslipidemia Mild intermittent asthma Nicotine dependence, cigarettes, uncomplicated History of retinal detachment Glaucoma Vitreous floaters of right eye Colonoscopy refused Family History Family History Father HTN (hypertension) Diabetes mellitus Brother Substance use disorder Paternal Uncle Cancer Surgical History Surgical History History of heart artery stent History of cataract surgery History of eye surgery Social History Social History Housing: House Are you a primary healthcare customer service to a significant other at home: No Do you presently have visiting nurse or other home services: No Alcohol intake: never Patient Tobacco Use Status: Current everyday Tobacco user Tobacco use type: Cigarette Cigarette Packs Per Day: 1 Cigarettes Per Day: 20.0 Years Smoked: (onset 17yo, 1-2ppd x 46yrs, 60+PYH) Smoked in Last 30 Days: Yes e-Cigarette/Vaping Use: Never Used Use of substances other than those prescribed or required for medical reasons: Yes Substance Use Frequency: Daily Have you been hit, kicked, punched, or otherwise hurt by someone within the past year? If so, by whom?: No Are you DNR?: No Advance Directives: No Advance Directives Information Provided: Yes Recently lost weight without trying: No Nutrition Risks: No Nutritional Risk service: No Current occupational status: unemployed Cognitive needs: No Hearing needs: No Vision needs: No Meds Allergies Allergy/AdvReac Type Severity Reaction Status Date / Time atorvastatin AdvReac Intermediate leg pain Verified 04/20/24 11:51 Home Medications ?Medication ?Instructions ?Recorded ?Confirmed ?Last Taken ?Type nitroglycerin 0.4 mg sublingual mg sublingual 07/18/20 04/04/24 Unknown History tablet aspirin 81 mg tablet,delayed 81 mg PO DAILY 09/25/21 04/20/24 Unknown History release (Adult Low Dose Aspirin) Exam Pertinent Lab Results Pertinent Lab Results: Laboratory Tests 03/23/24 15:04 WBC 9.2 Hgb 12.3 L Hct 37.5 L Plt Count 322 Sodium 140 Potassium 3.7 Chloride 102 Carbon Dioxide 26 BUN 13 Creatinine 1.10 Narrative Narrative: ECHO 03/2024 Conclusions: - The left ventricular systolic function is normal. The visually estimated ejection fraction is between 60-65%. - No obvious valvular pathology seen on this study. NM ana rosa perf SPECT rest & str 03/2024 Impression: 1. Myocardial perfusion imaging study shows normal myocardial perfusion. 2. Gated LVEF is >70% during stress and 70% during rest. 3. Transient ischemic dilatation not present. EKG component of the test reported separately. Assessment and Plan Assessment Anesthesia Assessment: Chart Reviewed Documented by User: Lizzy Vernon MD 04/20/24 12:41 PMFSH Past Medical History Medical History Abnormal PET scan of lung Lung mass History of CVA with residual deficit Coronary artery disease History of non-ST elevation myocardial infarction (NSTEMI) Essential hypertension Dyslipidemia Mild intermittent asthma Nicotine dependence, cigarettes, uncomplicated History of retinal detachment Glaucoma Vitreous floaters of right eye Colonoscopy refused Family History Family History Father HTN (hypertension) Diabetes mellitus Brother Substance use disorder Paternal Uncle Cancer Surgical History Surgical History History of heart artery stent History of cataract surgery History of eye surgery History of Problems with Anesthesia: No Social History Social History Housing: House Are you a primary healthcare customer service to a significant other at home: No Do you presently have visiting nurse or other home services: No Alcohol intake: never Patient Tobacco Use Status: Current everyday Tobacco user Tobacco use type: Cigarette Cigarette Packs Per Day: 1 Cigarettes Per Day: 20.0 Years Smoked: (onset 17yo, 1-2ppd x 46yrs, 60+PYH) Smoked in Last 30 Days: Yes e-Cigarette/Vaping Use: Never Used Use of substances other than those prescribed or required for medical reasons: Yes Substance Use Frequency: Daily Have you been hit, kicked, punched, or otherwise hurt by someone within the past year? If so, by whom?: No Are you DNR?: No Advance Directives: No Advance Directives Information Provided: Yes Recently lost weight without trying: No Nutrition Risks: No Nutritional Risk service: No Current occupational status: unemployed Cognitive needs: No Hearing needs: No Vision needs: No Meds Allergies Allergy/AdvReac Type Severity Reaction Status Date / Time atorvastatin AdvReac Intermediate leg pain Verified 04/20/24 11:51 Home Medications ?Medication ?Instructions ?Recorded ?Confirmed ?Last Taken ?Type nitroglycerin 0.4 mg sublingual mg sublingual 07/18/20 04/04/24 Unknown History tablet aspirin 81 mg tablet,delayed 81 mg PO DAILY 09/25/21 04/20/24 Unknown History release (Adult Low Dose Aspirin) Exam Airway Mallampati Class: II (edentulous upper) TM Dist: >3cm Neck ROM: Full Denture: Upper Loose/Missing/Broken Teeth: Yes, Upper and Lower Heart: RRR Lungs: CTA Assessment and Plan Assessment Anesthesia Assessment: Anesthesia Plan Discussed Final Anesthetic Review History of Problems with Anesthesia: No NPO: Yes ASA Class: III Final Preanesthetic Review: Meds/Allgs Chart Reviewed, Consent Obtained/Reviewed and Anes Risks/Benef Reviewed Patient Risk: Intermediate Procedure Risk: Intermediate Anesthetic Plan Anesthetic Plan: GA Disposition: Standard PACU
[2024-04-20] VITALS (7 sets, daily range): BP systolic 96–127; BP diastolic 49–65; PULSE 82–100; RESP 12–16; TEMP 36.1–36.8; O2SAT 94–99; BMI 25.0
--- NOTE | 2024-04-20 11:37 | MHC.SHP ---
Pre-Procedural Eval Section A - 24 Hr Update-Section A only Date of Service: 04/20/24 The patient is an INPATIENT: No Changes since office visit: No Cold of Flu in the past 2 weeks, No New Medical Problems, No Changes in Medication and No Patient answered all questions Section B - Complete if H&P > 30 days Chief Complaint: Other nonspecific abnormal finding of lung field Relevant Family History (Specify if Yes): No Relevant Social History: Tobacco Use Present Medications: see Short Stay Collaborative assessment Medical History: Significant History History of Previous Operations: No relevant previous surgery Allergies: Allergies Allergy/AdvReac Type Severity Reaction Status Date / Time atorvastatin AdvReac Intermediate leg pain Verified 03/31/24 08:44 Review of Systems Sugical H&P ROS: Negative: Constitution, Cardiovascular, Psychiatric, Hem-Onc, Allergic/Immunologic, Gastrointestinal, Genitourinary, Musculoskeletal and Integumentary and Yes, Specify: Respiratory (cough) Exam Surgical H&P Exam: Normal: HEENT, Normal: Heart, Normal: Lungs, Normal: Extremities, Normal: Abdomen, Normal: Skin and Normal: Neurological Plan Diagnosis/Plan: Change (cardiology eval was normal, will proceed with EBUS and bronchoscopy) I have reviewed the history and physical and performed a pertinent physical examination on my patient. No changes have occurred unless specified. Time Spent With Patient Time: Total time managing care of this patient today ____ minutes.
[2024-04-20] MEDS: Lactated Ringers 1,000 ML 100 ML IVCONT (12:06)
--- NOTE | 2024-04-20 13:28 | PM.OP ---
Brief Operative Note Date of Service: 04/20/24 Pre-op diagnosis: lung mass Post-op diagnosis: other (lung cancer, Bronchus intermedious obstruction) Procedure: EBUS with TBNA of DONNY mass and bronchoscopy with washings/brushings/endobronchial bx of the DONNY Implants: Surgeon: Jeffery Montesinos MD Anesthesia: GETA Was an Bonderite Operator used for this Procedure?: No Estimated blood loss (mL): 2 Pathology: other Condition: stable Disposition: same day
--- NOTE | 2024-04-21 00:24 | OP_ITS ---
DATE OF SERVICE: 04/20/2024 SURGEON: Jeffery Montesinos MD PREOPERATIVE DIAGNOSIS: Lung mass. POSTOPERATIVE DIAGNOSIS: PROCEDURE PERFORMED: Endobronchial ultrasound bronchoscopy with TBNA of the right mainstem mass and bronchoscopy. Washings, brushings, and endobronchial biopsies of the right mainstem mass. ESTIMATED BLOOD LOSS: COMPLICATIONS: ANESTHESIA: General anesthesia. ASSISTANTS: None. SPECIMENS: ASA CLASSIFICATION: 3. POSTOPERATIVE DIAGNOSES: Lung cancer and bronchus intermedius obstruction, and also affecting the right middle lobe. PROCEDURE: After the patient was adequately sedated and intubated, the flexible digital bronchoscope with the EBUS was introduced into the ET tube to the level of main luis enrique. The main luis enrique appeared to be abnormal with abnormal mucosa, with some neovascularizations in areas concerning for cancer right at the level of the luis enrique. The main luis enrique was also splayed using ultrasound. There was significant cancer involving the right mainstem bronchus circumferentially. Using ultrasound guidance, transbronchial needle aspirations were collected and placed directly through the CytoLyt solution. We did not have rapid on-site cytology present. After 5 passes, the specimen was collected and the EBUS was removed, then replaced with a regular bronchoscope. The regular bronchoscope was inserted with the ET tube again and navigated to the entire tracheobronchial tree, that was exsanguinated to the subsegmental level. The patient however, had a very abnormal looking right mainstem and also bronchus intermedius with fungating disease neovascularization and obstruction, also some areas of necrosis. The area had significant amount of neovascularization, so was also bleeding and oozing. Using a cytologic brush, that was introduced into the right mainstem bronchus and sent for cytology. Bronchial washings were also collected. Subsequently using forceps, endobronchial biopsies were collected at the level of the right mainstem bronchus mass and bronchus intermedius area, and the biopsies were placed in formalin. The patient did have some bleeding. Ice saline was used with good effect and also we gave him 1 ampule of epinephrine with also good effect. The bleeding subsequently stopped. Good hemostasis and the bronchoscope was then removed. The total endoscopic time approximately half an hour. Patient tolerated procedure well. Vital signs were stable. MD SHIELA Morrison/MARTA / [id number]
== END 2024-04-20 14:39 | disposition home or self-care (01) ==
PROVIDERS: PCP Internal Medicine; Visit Provider Hospitalist
PROC: (CPT 31629; principal; 2024-04-20 12:10)
DX: C34.01 Malignant neoplasm of right main bronchus (principal); J98.09 Other diseases of bronchus, not elsewhere classified; M89.9 Disorder of bone, unspecified; I10 Essential (primary) hypertension; I25.10 Atherosclerotic heart disease of native coronary artery without angina pectoris; Z95.5 Presence of coronary angioplasty implant and graft; I25.2 Old myocardial infarction; J45.20 Mild intermittent asthma, uncomplicated; H40.9 Unspecified glaucoma; Z86.73 Personal history of transient ischemic attack (TIA), and cerebral infarction without residual deficits; Z79.82 Long term (current) use of aspirin; Z79.899 Other long term (current) drug therapy; Z88.8 Allergy status to other drugs, medicaments and biological substances; F17.210 Nicotine dependence, cigarettes, uncomplicated; Z98.890 Other specified postprocedural states; Z56.0 Unemployment, unspecified
CPT/HCPCS: 31629; 31623; 88112; 88305; 88341; 88342; J0171; J2003; J2250; J2704; J3010

== ENCOUNTER → 2024-04-20 11:12 | Outpatient (BNV) | payer MEDICARE, MEDICAID, SELFPAY | PROVIDERS: PCP Internal Medicine; Visit Provider Hospitalist | DX: C34.01 Malignant neoplasm of right main bronchus (principal) | CPT/HCPCS: 31623; 31625; 31652 ==

== ENCOUNTER → 2024-05-01 10:58 | Outpatient (BNV) | payer MEDICARE, MEDICAID, SELFPAY | PROVIDERS: PCP Internal Medicine; Referring Provider Hospitalist; Visit Provider Internal Medicine | DX: C34.01 Malignant neoplasm of right main bronchus (principal); F17.210 Nicotine dependence, cigarettes, uncomplicated; E83.52 Hypercalcemia | CPT/HCPCS: 99205; 99215; G2211 ==

== ENCOUNTER → 2024-05-04 14:47 | Outpatient (BNV) | payer MEDICARE, MEDICAID, SELFPAY | PROVIDERS: PCP Internal Medicine; Visit Provider Radiology Diagnostic Radiology | DX: I67.89 Other cerebrovascular disease (principal); I69.898 Other sequelae of other cerebrovascular disease | CPT/HCPCS: 70553 ==

== ENCOUNTER 2024-05-04 14:49 | Outpatient (REF) | payer MEDICARE, MEDICAID, SELFPAY ==
--- NOTE | ~2024-05-04 | MR_ITS ---
EXAMINATION: MR BRAIN WITHOUT AND WITH CONTRAST CLINICAL INFORMATION: Lung cancer. Headache. COMPARISON: None available. TECHNIQUE: Multiplanar, multisequence MRI of the brain was obtained before and after the intravenous administration of 8.0 mL Gadavist without reported immediate complications. FINDINGS: Limited by patient's motion artifact. No restricted diffusion No abnormal enhancement within the intra-axial or the extra-axial compartment of the cranium. The intraconal and extraconal compartments of the orbits are not fully evaluated due to lack of fat saturated postcontrast enhancement sequence. No acute intracranial hemorrhage, mass effect, midline shift, hydrocephalus or herniation. Macrocystic encephalomalacia involving the posterior inferior left cerebellum. Old lacunar infarcts scattered in both left and right cerebellum. Bilateral multifocal patchy and punctate deep periventricular white matter hyperintense T2 FLAIR signal involving centrum semiovale and khalil radiata and cerebellum. Old lacunar infarcts in the basal ganglia and khalil radiata white matter. Focal 12 mm nonenhancing no restricted diffusion hyperintense T2 FLAIR signal in the right parietal deep or matter likely prior vascular insult resulting gliosis. Flow-void signal within the main vessels is normal. Sellar/suprasellar region demonstrated no gross lesion or signal abnormality. Craniocervical junction is intact and normal. No signal abnormality or volume loss in the hippocampi. Main cerebral venous sinuses demonstrated normal patency.. MR/MR head/brain wo/w con IMPRESSION: No metastatic disease, intracranial. Small vessel occlusive disease. Sequela of prior stroke/vascular insult left posterior inferior cerebellar artery territory. Electronically signed by: Elvin Amaral MD 05/05/2024 07:36 AM [facility]
[2024-05-04] MEDS: gadobutroL 10 ML VIAL IVPUSH (15:43)
== END 2024-05-04 14:50 | disposition home or self-care (01) ==
LOC: HO.MRI 14:49
PROVIDERS: PCP Internal Medicine; Visit Provider Internal Medicine
DX: C34.90 Malignant neoplasm of unspecified part of unspecified bronchus or lung (principal)
CPT/HCPCS: 70553; A9585

== ENCOUNTER → 2024-05-24 10:37 | Outpatient (REF) | payer MEDICARE, MEDICAID, SELFPAY ==
--- NOTE | ~2024-05-24 | NM_ITS ---
EXAMINATION: NM BONE SCAN OF THE WHOLE BODY CLINICAL INFORMATION: 63-year-old male with malignant neoplasm of bronchus or lung. Suspected bone metastases. COMPARISON: Limited images of outside PET CT scan done on 03/23/2024. TECHNIQUE: Multiple gamma scintillation camera images of the whole body were performed 2.75 hours following the intravenous administration of 28 mCi Tc-99m MDP. The radiotracer was injected through a left antecubital superficial vein FINDINGS: In the head, no suspicious focal lesion. In the thoracic cage and upper extremities, no suspicious focal lesion. In the spine, no suspicious focal lesion. In the pelvis, no suspicious focal lesion. Specifically, previous PET/CT detected asymmetric focal increased tracer activity associated with underlying lytic lesion involving the left inferior ischiopubic ramus is not tracer avid on this planar images. In the lower extremities, no suspicious focal lesion. No other definite bony abnormalities are noted. The urinary bladder and faint visualization of both kidneys are noted. NM/NM bone scan whole body IMPRESSION: * No scintigraphic evidence of osseous metastasis on this planar images. * Previous focal osteolytic lesion associated with hypermetabolism seen at left inferior ischiopubic ramus on prior outside PET CT scan done on 03/23/2024, however remain suspicious for malignancy/metastatic disease in this patient with known lung cancer. CT-guided biopsy of this lesion can be performed for histopathological correlation. Electronically signed by: Remington Church MD 05/28/2024 04:45 PM [facility]
== END ==
LOC: HO.NUCMED 10:37
PROVIDERS: PCP Internal Medicine; Visit Provider Internal Medicine
DX: C34.90 Malignant neoplasm of unspecified part of unspecified bronchus or lung (principal)
CPT/HCPCS: 78306; A9503

== ENCOUNTER 2024-07-07 07:57 | Day surgery (SDC) | payer MEDICARE, MEDICAID, SELFPAY ==
[2024-07-07] VITALS (15 sets, daily range): BP systolic 92–126; BP diastolic 56–74; PULSE 86–103; RESP 14–21; TEMP 36.1–37.4; O2SAT 93–98; BMI 22.7
--- NOTE | ~2024-07-07 | IR_ITS ---
CLINICAL HISTORY: Metastatic lung cancer. The patient presents to interventional radiology for placement of a port for chemotherapy. PROCEDURES: 1. Real-time ultrasound-guided access into the right internal jugular vein after documentation of selected vessel patency, and permanent image storing in the patient records. 2. Placement of a 6.0 Fr single-lumen slim power port. CLINICIAN: Josef Cruz PA-C MEDICATIONS: - Versed 1.5 mg, Fentanyl 75 mcg, Lidocaine 1% 10 mL SQ -Antibiotics: Ancef 2g -For additional details, please see nursing flowsheet. Complications: None. Estimated blood loss: <5 ml Specimens: None. Contrast: None. Fluoroscopy time: 0.7 min MODERATE SEDATION TIME: 30 min PROCEDURE NOTE: The procedure, risks, benefits, and alternatives were carefully explained to the patient and written informed consent was obtained. The patient was placed supine on the fluoroscopy table. A timeout was performed. The right neck and chest was prepped and draped in usual sterile fashion. Maximum barrier technique was utilized. Local anesthesia was administered to the access site with 1% lidocaine. Under ultrasound guidance, the right internal jugular vein was accessed with a 5 fr micropuncture set. A 0.035 in wire was advanced into the IVC. A peel-away sheath was advanced over the wire and into the SVC, and the wire was removed. Next, subcutaneous lidocaine was administered to the chest. The port pocket was created after the skin incision, utilizing blunt dissection. Using blunt dissection, a subcutaneous tunnel was created that connects from the port pocket to the venotomy site. Through the peel-away sheath, the 6.0 Qatari port catheter was placed. The catheter position was verified with fluoroscopy to be at the superior vena cava/right atrial junction. The port was connected to the catheter and was placed in the pocket. The venotomy site was closed with a 3-0 Vicryl subcutaneous suture. The port incision site was closed with interrupted 3-0 Vicryl subcutaneous sutures and surgical glue. Prior to closing the skin, 1 g of Ancef solution was placed in the pocket. The port was tested, flushed, and packed with heparin per routine protocol. The patient tolerated the procedure well. The patient was stable after the procedure and was transferred to the PACU. The procedure was performed under moderate sedation and with a dedicated nurse with continuous monitoring of vital signs. A permanent image of the ultrasound the neck and fluoroscopic image of the chest was saved and sent to PACS. FINDINGS: 1. Patent right internal jugular vein 2. Placement of a 6.0 Fr single-lumen slim power port. 3. Port flushes and aspirates very well with a 10 mL syringe. No pneumothorax. IR/IR cvc insert tunnel w prt/content management specialist IMPRESSION: Placement of a 6.0 Fr single-lumen slim power port. PLAN: - The patient will be discharged home when stable by sedation protocol. - Port may be used immediately. This procedure was performed by Josef Cruz PA-C, and directly supervised by Dr. Sweet Electronically signed by: Brett Sweet MD 07/07/2024 03:10 PM [facility] [place] [place] Workstation: [id number]
[2024-07-07] MEDS: Albuterol Sulfate (0.083%) 2.5 MG/3 ML VIAL.NEB INHALE (09:27)
[2024-07-07] MEDS: Acetaminophen 1,000 MG/100 ML PIGGYBACK 400 MG IV (09:34)
--- NOTE | 2024-07-07 09:34 | MHC.SHP ---
Pre-Procedural Eval Section A - 24 Hr Update-Section A only Date of Service: 07/07/24 Section B - Complete if H&P > 30 days Chief Complaint: STAT-for chemo-neoplasm bronchus or lung Details of Present Illness: 63 y/o man with metastatic lung cancer and poor iv access Relevant Family History (Specify if Yes): No Relevant Social History: Tobacco Use Present Medications: see Short Stay Collaborative assessment Medical History: Significant History History of Previous Operations: Relevant previous surgery/procedure and date(s) Allergies: Allergies Allergy/AdvReac Type Severity Reaction Status Date / Time atorvastatin AdvReac Intermediate leg pain Verified 07/07/24 08:47 Review of Systems Sugical H&P ROS: Negative: Constitution and Cardiovascular and Yes, Specify: Respiratory (chronic dyspnea) Exam Surgical H&P Exam: Normal: Skin and Normal: Neurological and Significant Findings: Heart (intermittent tachycardia, regular) and Significant Findings: Lungs (b/l wheezing) Plan 63 y/o man with metastatic lung cancer and poor iv access -Port -Duoneb preprocedure Time Spent With Patient Time: Total time managing care of this patient today ____ minutes.
[2024-07-07] MEDS: ceFAZolin Sodium/Dextrose,Iso 2 GM/50 ML PIGGYBACK IV (09:51)
[2024-07-07] MEDS: Midazolam HCl 5 MG/ML VIAL IVPUSH ×2 (10:07→10:15)
[2024-07-07] MEDS: fentaNYL citrate/PF 100 MCG/2 ML VIAL 25 MCG IVPUSH ×2 (10:07→10:16)
== END 2024-07-07 11:24 | disposition home or self-care (01) ==
PROVIDERS: Physician Assistant Surgical; PCP Internal Medicine; Visit Provider Internal Medicine
DX: Z45.2 Encounter for adjustment and management of vascular access device (principal); C34.90 Malignant neoplasm of unspecified part of unspecified bronchus or lung; I10 Essential (primary) hypertension; I25.10 Atherosclerotic heart disease of native coronary artery without angina pectoris; Z95.5 Presence of coronary angioplasty implant and graft; J45.20 Mild intermittent asthma, uncomplicated; I25.2 Old myocardial infarction; Z56.0 Unemployment, unspecified; Z79.82 Long term (current) use of aspirin; Z79.899 Other long term (current) drug therapy; F17.210 Nicotine dependence, cigarettes, uncomplicated
CPT/HCPCS: 36561; 94640; 99152; 99153; C1769; C1788; J0131; J0690; J1642; J1644; J2003; J2250; J2310; J3010

== ENCOUNTER → 2024-07-07 09:12 | Outpatient (BNV) | payer MEDICARE, MEDICAID, SELFPAY | PROVIDERS: PCP Internal Medicine; Visit Provider Physician Assistant Surgical | DX: Z45.2 Encounter for adjustment and management of vascular access device (principal); C78.00 Secondary malignant neoplasm of unspecified lung | CPT/HCPCS: 36561; 76937; 77001 ==

== ENCOUNTER 2024-08-03 17:33 | Inpatient (IN) | payer MEDICARE, MEDICAID, SELFPAY ==
--- NOTE | ~2024-08-03 | CT_ITS ---
CLINICAL HISTORY: cavitary lesions CT chest with contrast Comparison: CT/KS/SR - CT LUNG SCREENING - 02/04/24 11:16 EDT Findings: Small pericardial effusion. Necrotic mediastinal and right hilar lymphadenopathy. For example a right paratracheal node measuring 3.5 cm and right hilar node measuring 2.2 cm. Right IJ CVC tip terminates of the cavoatrial junction. Gynecomastia. Progressive infiltrative right perihilar mass with encasement and compression of the broncho vasculature, with dense consolidations and near-complete collapse of the right hemithorax. The aerated portions of the right lung demonstrate scattered areas of nodular interlobular septal thickening. Given morphology, difficult to measure. Are scattered cavitary regions throughout the lung, the largest anteriorly measuring 23.2 cm. Superimposed multiloculated hydro pneumothoraces are differential considerations. Superimposed abscesses are not excluded either. Positive mass effect with leftward mediastinal shifting. Subtle ground-glass/nodular consolidations scattered throughout the left lung may reflect superimposed aspiration. Nonobstructive 2 mm calculus in the right upper pole kidney. Hepatic steatosis noted. Possible subtle low-density focus near the posterior falciform region of the liver, nonspecific. If clinical concern persists consider follow-up MRI. Splenule. The bones are intact. IMPRESSION: 1. Presumed disease progression involving an infiltrative right perihilar mass. Multifocal cavitations, abscesses or hydro pneumothoraces are differential considerations as described above. Pulmonology consult with tissue sampling advised if not already advised. 2. Necrotic mediastinal and right hilar lymphadenopathy. 3. Subtle ground-glass/nodular consolidations scattered throughout the left lung may reflect superimposed aspiration. This document has been electronically signed by: Oskar Chao MD on 08/03/2024 21:23:37
--- NOTE | ~2024-08-03 | XR_ITS ---
CLINICAL HISTORY: sob, lung CA, r o pna 1 view chest x-ray Comparison: CT 02/04/2024 Findings: The left lung is clear. There is a large cavitary appearing mass within the right lung. This process is significantly increased versus 02/04/2024. Superimposed right-sided pneumonia possible. No definite pneumothorax. Cardiac and mediastinal contours are stable. Impression: Prominent cavitary process involving the right lung. This may possibly reflect progression of the known malignancy. Superimposed infection also possible. This is significantly progressed since the comparison study. Correlation with any more recent imaging and/or possible surgical history with lobectomy. This document has been electronically signed by: Oliver Flood MD on 08/03/2024 19:03:20
--- NOTE | 2024-08-03 17:52 | ECG_ITS ---
Test Reason : SOB Blood Pressure : */* mmHG Vent. Rate : 101 BPM Atrial Rate : 101 BPM P-R Int : 126 ms QRS Dur : 100 ms QT Int : 364 ms P-R-T Axes : 75 55 79 degrees QTcB Int : 471 ms Sinus tachycardia Incomplete right bundle branch block Nonspecific ST and T wave abnormality Abnormal ECG When compared with ECG of 23-Mar-2024 15:08, No significant change was found Referred By: Denia Schwartz Electronically Signed By: JOSE TOBAR MD
[2024-08-03 17:57] VITALS: BP 129/56; BP 130/63; PULSE 102; PULSE 98; RESP 25; TEMP 38.1; O2SAT 83; O2SAT 91; BMI 19.2
--- NOTE | 2024-08-03 18:01 | ED_ITS ---
HPI - SOB/Dyspnea General Chief Complaint: Dyspnea Stated Complaint: DIFF BREATHING Time Seen by Provider: 08/03/24 17:35 Source: patient and EMS Mode of arrival: EMS Limitations: no limitations History of Present Illness ED Provider: Dr. Denia Schwartz HPI Narrative: Patient comes to the emergency room complaining of shortness of breath. According to the patient, he has been treated for last 3 days with a azithromycin for bronchitis. 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 Sullivan on 07/31/2024. Currently, patient took a month of chemotherapy vacation, he is due to start chemotherapy again next week. Patient states that today he was very short of breath. Patient called the ambulance, initial oxygen saturation for EMS was in the low 80s. Also, patient was found to be wheezing, patient received Solu-Medrol 125 mg and nebulization treatments. Patient states that he is starting to feel a bit better breathing. Patient denies any chest pain, denies any fever to his knowledge. Related Data Home Medications ?Medication ?Instructions ?Recorded ?Confirmed nitroglycerin 0.4 mg sublingual 0.4 mg sublingual DAILY 07/18/20 07/31/24 tablet aspirin 81 mg tablet,delayed 81 mg PO DAILY 09/25/21 07/31/24 release (Adult Low Dose Aspirin) Previous Rx's ?Medication ?Instructions ?Recorded albuterol sulfate 90 mcg/actuation 2 puff inhalation Q6H PRN 02/22/24 aerosol inhaler shortness of breath or wheezing #8.5 grams lisinopril 10 mg tablet 10 mg PO DAILY #90 tabs 02/22/24 metoprolol succinate 25 mg 25 mg PO DAILY #90 tabs 02/22/24 tablet,extended release 24 hr rosuvastatin 5 mg tablet 5 mg PO 3XW 3 months #39 tabs 02/22/24 ezetimibe 10 mg tablet 10 mg PO DAILY #30 tabs 04/04/24 codeine 10 mg-guaifenesin 100 mg/5 10 ml PO Q6H PRN cough 10 days 05/14/24 mL oral liquid #300 mL ondansetron 8 mg disintegrating 8 mg PO Q8H nausea #30 tabs 05/31/24 tablet lorazepam 0.5 mg tablet 0.5 mg PO BEDTIME PRN Anxiety #30 07/10/24 tabs oxycodone 5 mg tablet 5 mg PO Q8H PRN Pain (Scale Score 07/18/24 7-10) #30 tabs trazodone 50 mg tablet 1 tab PO BEDTIME #90 tabs 07/20/24 azithromycin 250 mg tablet 250 mg PO DAILY #6 tabs 07/31/24 Allergies Allergy/AdvReac Type Severity Reaction Status Date / Time atorvastatin AdvReac Intermediate leg pain Verified 08/03/24 18:01 Review of Systems 2 Review of Systems: Constitutional : No Weight loss, No Fever, No Chills, No Night Sweats, No Fatigue, No Malaise ENT/Mouth : No Hearing loss, No Ear Pain, No Nasal Congestion, No Sinus Pain, No Hoarseness, No sore throat, No Rhinorrhea, No Swallowing Difficulty Eyes: No Eye Pain, No Swelling, No Redness, No Foreign Body, No Discharge, No Vision Changes Cardiovascular : No Chest Pain, denies orthopnea or palpitations Respiratory : Complaining of cough, wheezing and shortness of breath Gastrointestinal : No Nausea, No Vomiting, No Diarrhea, No Constipation, No abdominal Pain, No Hematochezia, No Melena Genitourinary : no irregular bleeding, No Dysuria, No Urinary Frequency, No Hematuria, No Urinary Incontinence, No Urgency, No Flank Pain, No Urinary Flow Changes, No Hesitancy Musculoskeletal : No joint pain, No Myalgias, No Joint Swelling Skin : No Skin Lesions, No rash Neuro : No Weakness, No Numbness, No Paresthesias, No Loss of Consciousness, No Dizziness, No Headache Psych : No Anxiety/Panic, No Depression, No SI/HI/AH/VH, No Social Issues, Heme/Lymph: No Bruising, No Bleeding,No Lymphadenopathy Endocrine : No Polyuria, No Polydipsia, No Temperature Intolerance [facility] Past Medical History Medical History Lung cancer (~2023) Abnormal PET scan of lung Lung mass History of non-ST elevation myocardial infarction (NSTEMI) Nicotine dependence, cigarettes, uncomplicated Glaucoma Vitreous floaters of right eye Mild intermittent asthma History of CVA with residual deficit Coronary artery disease History of retinal detachment Colonoscopy refused Essential hypertension Dyslipidemia Surgical History History of lung biopsy History of cataract surgery History of heart artery stent History of eye surgery Family History Family History Father HTN (hypertension) Diabetes mellitus Brother Substance use disorder Paternal Uncle Cancer Social History Social History Household Members: Family Housing: House Are you a primary floor care specialist to a significant other at home: No Do you presently have visiting nurse or other home services: No Alcohol intake: never Patient Tobacco Use Status: Current everyday Tobacco user Tobacco use type: Cigarette Cigarette Packs Per Day: 1 Years Smoked: (onset 17yo, 1-2ppd x 46yrs, 60+PYH) e-Cigarette/Vaping Use: Never Used Substance Use Type: Marijuana Advance Directives: No Advance Directives Information Provided: No service: Yes Current occupational status: unemployed and disabled Gender identity: Male Cognitive needs: No Hearing needs: No Vision needs: No Physical Exam 2 Vital Signs: Vital Signs: Last Vital Signs Temp 97.6 F 08/03/24 20:33 Pulse 92 08/03/24 20:33 Resp 17 08/03/24 20:33 BP 112/55 L 08/03/24 20:33 Pulse Ox 94 08/03/24 20:33 O2 Del Method Nasal Cannula 08/03/24 20:33 O2 Flow Rate 4 08/03/24 20:33 BMI result Body Mass Index 19.2 Const: Other: Appearance: Alert. Oriented X3. No acute distress. Eyes: Pupils equal, round and reactive to light. ENT: Pharynx normal. Neck: Normal inspection. Neck supple. No lymph nodes noted. No crepitus CVS: Normal heart rate and rhythm. Pulses normal. Normal S1 and S2 Respiratory: Tachypneic, fairly good air movement on the left, mild wheezing. Decreased air sounds on the right, no rales or crackles Abdomen: Soft and nontender. No rigidity. No distention. Skin: Skin warm and clammy. Normal skin color. Normal skin turgor. Extremities: No lower extremity edema. No Lacerations. No Rash Neuro: Oriented X 3. No motor deficit. No sensory deficit. Moving all extremities. No slurred speech. CN 2 through 12 grossly intact Psych: calm, cooperative, normal affect Course Course Course Narrative: All Of patient's labs and imaging pending, EKG pending. So far, no episodes of hypotension has been reported by EMS. Empirically, patient being treated with IV fluids and cefepime Medications Administered Discontinued Medications Generic Name Dose Route Start Last Admin Trade Name Torrey PRN Reason Stop Dose Admin Sodium Chloride 1,000 mls @ 999 mls/hr 08/03/24 17:52 08/03/24 19:00 Ns IVCONT 08/03/24 18:52 Infused .Q1H1M ONE Infusion Cefepime HCl 2 gm in 50 mls @ 100 mls/hr 08/03/24 17:52 08/03/24 19:15 Maxipime IV 08/03/24 18:21 Infused ONCE ONE Infusion Magnesium Sulfate/Dextrose 1 gm in 100 mls @ 300 mls/hr 08/03/24 17:52 08/03/24 19:02 Magnesium Sulfate/D5w IV 08/03/24 18:11 Infused ONCE ONE Infusion Sodium Chloride 1,000 mls @ 999 mls/hr 08/03/24 18:55 08/03/24 19:47 Ns IVCONT 08/03/24 19:55 999 mls/hr .Q1H1M ONE Administration Iohexol 100 ml 08/03/24 20:39 08/03/24 20:39 Iohexol 350 Mg/Ml 100 Ml Infus..Btl IV 08/03/24 20:40 65 ml ONCE ONE Administration Medical Decision Making Medical Decision Making MDM Narrative: My interpretation of labs: Patient's white blood cell count 12.5, hemoglobin 8.2 which is chronic for the patient. Patient's potassium 2.8, lactic acid 3.7 which improved to 2.2 after IV fluids. No significant abnormality in patient's LFTs, normal troponin, normal BNP, serology negative for influenza RSV and COVID Patient's x-ray looks abnormal, possible blebs, questionable air-fluid levels. Looks grossly abnormal from previous CT scan in 2023. We will repeat another CT scan. Patient was already treated empirically with IV fluids and cefepime. My interpretation of CT scan of the chest: Possible empyema. CT scan report pending. A covered the patient also we have vanco and Zosyn. Differential Diagnosis Differential Diagnoses: The differential diagnosis associated with the presentation includes (Viral URI, pneumonia, empyema) Admission/Observation Consideration of admission/observation: Escalation of care including admission/observation considered Consult Healthcare Provider Management of the patient was discussed with: Hospitalist Lab Data MDM Lab Attestation statement: I reviewed the patient's lab results. 08/03/24 18:26 08/03/24 18:26 Labs: Lab Results 08/03/24 08/03/24 08/03/24 Range/Units 18:26 18:29 18:45 WBC 12.5 H (4.8-10.8) X10*3/uL RBC 2.93 L (4.60-5.80) X10*6/uL Hgb 8.2 L (14.0-18.0) g/dl Hct 25.5 L (42.0-52.0) % MCV 87.0 (80.0-98.0) fL MCH 28.0 (27.0-33.0) pg MCHC 32.2 (31.0-36.0) g/dl RDW 20.1 H (11.0-16.0) % Plt Count 211 D (160-400) X10*3/uL MPV 9.0 L (9.4-12.4) fL Immature Gran % (Auto) 1.0 H (0.0-0.4) % Neut % (Auto) 83.4 H (45-73) % Lymph % (Auto) 8.3 L (20-40) % Caroline % (Auto) 7.1 (2-11) % Eos % (Auto) 0.0 (0-4) % Baso % (Auto) 0.2 (0-2) % Lymph # (Auto) 1.0 L (1.2-4.9) X10*3/uL Caroline # (Auto) 0.9 (0.1-1.2) X10*3/uL Eos # (Auto) 0.0 (0.0-0.4) X10*3/uL Baso # (Auto) 0.0 (0.0-0.2) X10*3/uL Abs Immat Gran (auto) 0.13 H (0.00-0.03) X10*3/uL Absolute Neuts (auto) 10.4 H (2.0-8.3) x10*3/uL Absolute Nucleated RBC 0.000 (0.0-0.012) X10*3/uL Nucleated RBC % (auto) 0.0 (0.0-0.2) /100WBC PT 18.7 H D (10.9-12.4) SEC INR 1.6 H (0.9-1.1) VBG pH 7.50 H (7.32-7.43) VBG pCO2 34 mmHg VBG pO2 44 mmHg VBG HCO3 27 H (22-26) mmol/L VBG O2 Saturation 70.0 % VBG Base Excess 4.6 mmol/L Sodium 134 L (135-145) mmol/L Potassium 2.8 L* (3.3-5.1) mmol/L Chloride 96 (96-108) mmol/L Carbon Dioxide 22 (22-29) mmol/L Anion Gap 19 (12-20) BUN 9 (9-16) mg/dL Creatinine 0.64 (0.5-1.4) mg/dL Estim Creat Clear Calc 101.0 Estimated GFR > 60 Random Glucose 178 H (60-115) mg/dL Lactic Acid 3.7 H* (0.5-2.0) mmol/L Lactic Acid F/U @ 2Hr (0.5-2.0) mmol/L Calcium 8.1 L (8.4-10.2) mg/dL Magnesium 1.8 (1.6-2.6) mg/dL Total Bilirubin 0.9 (0.0-1.0) mg/dL Direct Bilirubin 0.6 H (0.0-0.5) mg/dL AST 26 (5-37) U/L ALT 13 (0-40) U/L Alkaline Phosphatase 90 (39-117) U/L Troponin I High Sens 5.2 D (<3.5-35.0) ng/L B-Natriuretic Peptide 92 (<100) pg/mL Total Protein 5.8 L (6.5-8.0) g/dL Albumin 2.2 L (3.5-5.0) g/dL Influenza Type A (PCR) NEGATIVE (Negative) Influenza Type B (PCR) NEGATIVE (Negative) RSV RNA Qual (PCR) NEGATIVE (Negative) SARS-CoV-2 RNA (RT-PCR) NEGATIVE (Negative) 08/03/24 Range/Units 20:37 WBC (4.8-10.8) X10*3/uL RBC (4.60-5.80) X10*6/uL Hgb (14.0-18.0) g/dl Hct (42.0-52.0) % MCV (80.0-98.0) fL MCH (27.0-33.0) pg MCHC (31.0-36.0) g/dl RDW (11.0-16.0) % Plt Count (160-400) X10*3/uL MPV (9.4-12.4) fL Immature Gran % (Auto) (0.0-0.4) % Neut % (Auto) (45-73) % Lymph % (Auto) (20-40) % Caroline % (Auto) (2-11) % Eos % (Auto) (0-4) % Baso % (Auto) (0-2) % Lymph # (Auto) (1.2-4.9) X10*3/uL Caroline # (Auto) (0.1-1.2) X10*3/uL Eos # (Auto) (0.0-0.4) X10*3/uL Baso # (Auto) (0.0-0.2) X10*3/uL Abs Immat Gran (auto) (0.00-0.03) X10*3/uL Absolute Neuts (auto) (2.0-8.3) x10*3/uL Absolute Nucleated RBC (0.0-0.012) X10*3/uL Nucleated RBC % (auto) (0.0-0.2) /100WBC PT (10.9-12.4) SEC INR (0.9-1.1) VBG pH (7.32-7.43) VBG pCO2 mmHg VBG pO2 mmHg VBG HCO3 (22-26) mmol/L VBG O2 Saturation % VBG Base Excess mmol/L Sodium (135-145) mmol/L Potassium (3.3-5.1) mmol/L Chloride (96-108) mmol/L Carbon Dioxide (22-29) mmol/L Anion Gap (12-20) BUN (9-16) mg/dL Creatinine (0.5-1.4) mg/dL Estim Creat Clear Calc Estimated GFR Random Glucose (60-115) mg/dL Lactic Acid (0.5-2.0) mmol/L Lactic Acid F/U @ 2Hr 2.2 H* (0.5-2.0) mmol/L Calcium (8.4-10.2) mg/dL Magnesium (1.6-2.6) mg/dL Total Bilirubin (0.0-1.0) mg/dL Direct Bilirubin (0.0-0.5) mg/dL AST (5-37) U/L ALT (0-40) U/L Alkaline Phosphatase (39-117) U/L Troponin I High Sens (<3.5-35.0) ng/L B-Natriuretic Peptide (<100) pg/mL Total Protein (6.5-8.0) g/dL Albumin (3.5-5.0) g/dL Influenza Type A (PCR) (Negative) Influenza Type B (PCR) (Negative) RSV RNA Qual (PCR) (Negative) SARS-CoV-2 RNA (RT-PCR) (Negative) Independent Interpretation I performed an independent interpretation of an: Plain X-Ray and CT Scan Radiology Impression Discussion of test interpretation with radiology: I have reviewed the radiologist's reading. Radiologist Impression: The left lung is clear. There is a large cavitary appearing mass within the right lung. This process is significantly increased versus 02/04/2024. Superimposed right-sided pneumonia possible. No definite pneumothorax. Cardiac and mediastinal contours are stable. Impression: Prominent cavitary process involving the right lung. This may possibly reflect progression of the known malignancy. Superimposed infection also possible. This is significantly progressed since the comparison study. Correlation with any more recent imaging and/or possible surgical history with lobectomy Independent Historian Clinical information obtained from an independent historian. History obtained from or confirmed by: EMS Critical Care Time Critical Care Time Critical Care Time: Yes Total Critical Care Time: 60 Attestation: I have personally provided critical care time. Time includes review of lab data, radiology results, discussion with consultants, and monitoring for potential decompensation. Intervention performed as documented. Discharge Plan Discharge Clinical Impression: Cavitating mass of lung, Acute hypokalemia Patient Disposition: Admitted As Inpatient
[2024-08-03] MEDS: 0.9 % Sodium Chloride 1,000 ML 999 ML IVCONT ×2 (18:15→19:47)
[2024-08-03 18:32] LABS: MANUAL DIFF FLAG NO
[2024-08-03 18:34] LABS: Basophils Percent Auto 0.2 % (0-2); Hematocrit 25.5 % (42.0-52.0); Hemoglobin 8.2 g/dl (14.0-18.0); Imm Gran Abs Auto 0.13 X10*3/uL (0.00-0.03); Lymphocytes Percent Auto 8.3 % (20-40); Mean Corpuscular HGB Conc 32.2 g/dl (31.0-36.0); Monocytes Absolute Auto 0.9 X10*3/uL (0.1-1.2); Monocytes Percent Auto 7.1 % (2-11); Neutrophils Absolute Auto 10.4 x10*3/uL (2.0-8.3); Neutrophils Percent Auto 83.4 % (45-73); Platelet Count 211 X10*3/uL (160-400); Red Blood Count 2.93 X10*6/uL (4.60-5.80); Red Cell Distribution Width 20.1 % (11.0-16.0); White Blood Count 12.5 X10*3/uL (4.8-10.8)
[2024-08-03 18:35] LABS: VBG Base Excess 4.6 mmol/L; VBG HCO3 27 mmol/L (22-26); VBG pCO2 34 mmHg; VBG pO2 44 mmHg
[2024-08-03 18:35] LABS: Venous Blood Gas Refer to POC result
[2024-08-03] MEDS: cefEPime HCl/D5W 2 GM/50 ML PIGGYBACK IV (18:45)
[2024-08-03] MEDS: Magnesium Sulfate/D5W 1 GM/100 ML PIGGYBACK IV (18:46)
[2024-08-03 18:53] LABS: B Type Natriuretic Peptide 92 pg/mL (<100)
[2024-08-03 18:55] LABS: Troponin-I High Sensitivity 5.2 ng/L (<3.5-35.0)
[2024-08-03 18:56] LABS: Lactic Acid 3.7 mmol/L (0.5-2.0)
[2024-08-03 18:57] LABS: Alanine Aminotransferase 13 U/L (0-40); Albumin Level 2.2 g/dL (3.5-5.0); Alkaline Phosphatase 90 U/L (39-117); Anion Gap 19 (12-20); Aspartate Amino Transferase 26 U/L (5-37); Bilirubin Direct 0.6 mg/dL (0.0-0.5); Bilirubin Total 0.9 mg/dL (0.0-1.0); Blood Urea Nitrogen 9 mg/dL (9-16); Calcium 8.1 mg/dL (8.4-10.2); Carbon Dioxide 22 mmol/L (22-29); Chloride 96 mmol/L (96-108); Estimated Glomerular Filt Rate > 60; Glucose Random 178 mg/dL (60-115); Magnesium 1.8 mg/dL (1.6-2.6); Potassium 2.8 mmol/L (3.3-5.1); Sodium 134 mmol/L (135-145); Total Protein 5.8 g/dL (6.5-8.0)
[2024-08-03 19:11] LABS: INTERNATIONAL NORM RATIO 1.6 (0.9-1.1); Prothrombin Time 18.7 SEC (10.9-12.4)
[2024-08-03 19:17] LABS: Influenza A PCR NEGATIVE (Negative); Influenza B PCR NEGATIVE (Negative); Resp Syncy Virus RNA Qual PCR NEGATIVE (Negative); SARS COV2 PCR INHOUSE NEGATIVE (Negative)
--- NOTE | 2024-08-03 20:03 | PC.NURSE ---
Pt sidelying and sleeping but resp rate remains high and has a wet gurggling sound. Has been coughing up copious amounts of green/yellow musus. loose.
[2024-08-03 20:30] LABS: Reflex Lactate? Lactic Acid Added
[2024-08-03 20:33] VITALS: BP 112/55; PULSE 92; RESP 17; TEMP 36.4; O2SAT 94
[2024-08-03] MEDS: iohexoL 350 MG/ML 100 ML INFUS..BTL IV (20:39)
[2024-08-03 21:02] LABS: ~Lactic Acid-LAB USE ONLY 2.2 mmol/L (0.5-2.0)
--- NOTE | 2024-08-03 22:19 | P.HPHOSP_ITS ---
History of Present Illness Date of Service: 08/03/24 Attending physician on admission: Valerie Thornton Chief Complaint: Worsening SOB Pt is a 63-year-old male with a PMH significant for?metastatic non-small cell lung cancer on chemo, hx of CVA, CAD w/ NSTEMI s/p stenting, COPD not on home O2, HTN, anemia, and glaucoma who presents to the ED with?worsening SOB and productive cough. Pt with chronic SOB and cough, the pt notes it has been worsening in the past couple of weeks. Cough has been productive of brown, yellow, and white sputum. pt reports he has been coughing up ?lots and lots? of sputum has felt fatigued and with subjective fever and chills. Reports a ?little? episode of diarrhea today, but otherwise endorses mostly constipation. Reports reduced p.o. intake. Pt presents today due to worsening symptoms and that he ?just could not take it any longer? no chest pain/pressure, palpitations. No nausea, vomiting, abdominal pain. Reports last session of chemotherapy approximately 1 month ago. Follow[address] with Dr. Sullivan. In the ED pt was febrile to 100.5, tachycardic up to 102, tachycardic up to 25, and hypoxic at 83% on RA for EMS. Labs were significant for leukocytosis of 12.5, chronic normocytic anemia of 8.2/25.5, sodium 134, potassium 2.8, lactic acid 3.7 with repeat 2.2, and albumin 2.2. Tested negative for flu, RSV, COVID. CXR showed prominent cavitary process involving right lung possibly reflecting progression of known malignancy, though superimposed infection also on differential. CT?of chest showed likely disease progression involving infiltrate right perihilar mass with multifocal cavitations vs abscess vs hydro pneumothoraces. Also found subtle ground-glass/nodular consolidations throughout left lung possibly reflecting superimposed aspiration. EKG demonstrated sinus tachycardia [address] and T-wave abnormalities. Pt was treated with IVF, Mag sulfate, and cefepime. Pt will be admitted to the hospital for treatment and further evaluation of acute hypoxic respiratory failure in the setting of multifocal cavitations vs abscesses. Review of Systems 2 Review of Systems: Negative except for that which is stated in the [facility] Medical History Lung cancer (~2023) Abnormal PET scan of lung Lung mass History of non-ST elevation myocardial infarction (NSTEMI) Nicotine dependence, cigarettes, uncomplicated Glaucoma Vitreous floaters of right eye Mild intermittent asthma History of CVA with residual deficit Coronary artery disease History of retinal detachment Colonoscopy refused Essential hypertension Dyslipidemia Family History Father HTN (hypertension) Diabetes mellitus Brother Substance use disorder Paternal Uncle Cancer Surgical History History of lung biopsy History of cataract surgery History of heart artery stent History of eye surgery Social History Household Members: Family Housing: House Are you a primary child day care provider to a significant other at home: No Do you presently have visiting nurse or other home services: No Alcohol intake: never Patient Tobacco Use Status: Current everyday Tobacco user Tobacco use type: Cigarette Cigarette Packs Per Day: 1 Years Smoked: (onset 17yo, 1-2ppd x 46yrs, 60+PYH) e-Cigarette/Vaping Use: Never Used Substance Use Type: Marijuana Advance Directives: No Advance Directives Information Provided: No service: Yes Current occupational status: unemployed and disabled Gender identity: Male Cognitive needs: No Hearing needs: No Vision needs: No Meds Allergies Allergy/AdvReac Type Severity Reaction Status Date / Time atorvastatin AdvReac Intermediate leg pain Verified 08/03/24 18:01 Active Medications: Current Medications Acetaminophen (Acetaminophen 325 Mg Tablet) 650 mg PO Q6H PRN PRN Reason: Pain, Mild 1-3,fever,headache Benzonatate (Benzonatate 100 Mg Capsule) 100 mg PO TID PRN PRN Reason: Cough Calcium Carbonate (Calcium Carbonate 750 Mg Tab.Chew) 750 mg PO Q4H PRN PRN Reason: Heartburn Vancomycin HCl 1,500 mg/ (Sodium Chloride) 500 mls @ 333.333 mls/hr IV ONCE ONE Stop: 08/03/24 22:35 Potassium Chloride (Potassium Chloride/H20) 10 meq in 100 mls @ 100 mls/hr IV Q1H [place] Stop: 08/04/24 02:14 Cefepime HCl (Maxipime) 2 gm in 50 mls @ 100 mls/hr IV Q8H [place] Magnesium Hydroxide (Milk Of Magnesia 30 Ml Oral.Susp) 30 ml PO DAILY PRN PRN Reason: Constipation Melatonin (Melatonin 3 Mg Tablet) 6 mg PO BEDTIME PRN PRN Reason: Insomnia Ondansetron HCl (Ondansetron Hcl 4 Mg/2 Ml Vial) 4 mg IVPUSH Q8H PRN PRN Reason: Nausea and Vomiting Pharmacy Consult (Consult Rx Vancomycin Dosing) 1 each MISCELLANE DAILY PRN PRN Reason: Consult order Sodium Chloride (0.9 % Sodium Chloride Flush 3 Ml Syringe) 3 ml IVFLUSH QSHIFT [facility] Home Medications ?Medication ?Instructions ?Recorded ?Confirmed ?Last Taken ?Type nitroglycerin 0.4 mg sublingual 0.4 mg sublingual DAILY 07/18/20 08/03/24 1 Week Ago History tablet ~07/27/24 rosuvastatin 5 mg tablet 5 mg PO MOWEFR 08/03/24 08/03/24 1 Week Ago History ~07/27/24 Physical Exam 2 Vital Signs and Narrative: Vital Signs: Last Vital Signs Temp 97.6 F 08/03/24 20:33 Pulse 92 08/03/24 20:33 Resp 17 08/03/24 20:33 BP 112/55 L 08/03/24 20:33 Pulse Ox 94 08/03/24 20:33 O2 Del Method Nasal Cannula 08/03/24 20:33 O2 Flow Rate 4 08/03/24 20:33 BMI result Body Mass Index 19.2 Constitutional: Alert, in no acute distress. Mental Status: Oriented to person, place and time. Eyes: Pupils are equal, round, and reactive to light. Right eye strabismus w/ exotropia. Ear, Nose, and Throat: Oropharynx clear, mucous membranes moist. Ears and nose without deformities. Trachea midline. Respiratory: Coarse breath sounds bilaterally with rhonchi. Cardiovascular: S1, S2 regular. No murmurs, rubs, or gallops. Gastrointestinal: Abdomen soft, non-tender, non-distended. Normal bowel sounds. Neurologic: Cranial nerves II-XII are grossly intact bilaterally. No focal neurological deficits. Moves all extremities spontaneously. Skin: Warm, dry. Extremities: No edema. Psychiatric: Normal mood and affect. Results Labs 08/03/24 18:26 08/03/24 18:26 Labs: Laboratory Results - last 24 hr 0208/03/24 08/03/24 18:26 18:29 18:45 MCV 87.0 MCH 28.0 MCHC 32.2 RDW 20.1 H Plt Count 211 D MPV 9.0 L Immature Gran % (Auto) 1.0 H Neut % (Auto) 83.4 H Lymph % (Auto) 8.3 L Chase % (Auto) 7.1 Eos % (Auto) 0.0 Baso % (Auto) 0.2 Lymph # (Auto) 1.0 L Chase # (Auto) 0.9 Eos # (Auto) 0.0 Baso # (Auto) 0.0 Abs Immat Gran (auto) 0.13 H Absolute Neuts (auto) 10.4 H Absolute Nucleated RBC 0.000 Nucleated RBC % (auto) 0.0 PT 18.7 H D INR 1.6 H VBG pH 7.50 H VBG pCO2 34 VBG pO2 44 VBG HCO3 27 H VBG O2 Saturation 70.0 VBG Base Excess 4.6 Anion Gap 19 Estim Creat Clear Calc 101.0 Estimated GFR > 60 Random Glucose 178 H Lactic Acid 3.7 H* Lactic Acid F/U @ 2Hr Calcium 8.1 L Magnesium 1.8 Total Bilirubin 0.9 Direct Bilirubin 0.6 H AST 26 ALT 13 Alkaline Phosphatase 90 B-Natriuretic Peptide 92 Total Protein 5.8 L Albumin 2.2 L Influenza Type A (PCR) NEGATIVE Influenza Type B (PCR) NEGATIVE RSV RNA Qual (PCR) NEGATIVE SARS-CoV-2 RNA (RT-PCR) NEGATIVE 08/03/24 20:37 MCV MCH MCHC RDW Plt Count MPV Immature Gran % (Auto) Neut % (Auto) Lymph % (Auto) Chase % (Auto) Eos % (Auto) Baso % (Auto) Lymph # (Auto) Chase # (Auto) Eos # (Auto) Baso # (Auto) Abs Immat Gran (auto) Absolute Neuts (auto) Absolute Nucleated RBC Nucleated RBC % (auto) PT INR VBG pH VBG pCO2 VBG pO2 VBG HCO3 VBG O2 Saturation VBG Base Excess Anion Gap Estim Creat Clear Calc Estimated GFR Random Glucose Lactic Acid Lactic Acid F/U @ 2Hr 2.2 H* Calcium Magnesium Total Bilirubin Direct Bilirubin AST ALT Alkaline Phosphatase B-Natriuretic Peptide Total Protein Albumin Influenza Type A (PCR) Influenza Type B (PCR) RSV RNA Qual (PCR) SARS-CoV-2 RNA (RT-PCR) Assessment and Plan (1) Acute hypokalemia: Status: Acute (2) Acute hypoxic respiratory failure: Status: Acute Plan Pt is a 63-year-old male with a PMH significant for?metastatic non-small cell lung cancer on chemo, hx of CVA, CAD w/ NSTEMI s/p stenting, COPD not on home O2, HTN, anemia, and glaucoma who presents to the ED with?worsening SOB and productive cough. Pt will be admitted to the hospital for treatment and further evaluation of acute hypoxic respiratory failure in the setting of multifocal cavitations vs abscesses. Acute hypoxic respiratory failure in the setting of multifocal cavitations vs abscesses with sepsis Pt with worsening SOB, productive cough, hypoxic to low 80s x1-2 weeks CTA of chest showing disease progression of infiltrative right perihilar mass with multifocal cavitations vs abscesses vs hydro pneumothoraces Meets sepsis criteria with tachycardia, tachypnea, and leukocytosis; lactic acid 3.7 with repeat 2.2 after IVF Pt given fluids and started on broad-spectrum antibiotics in the ED Will treat with cefepime 2 g IV, started 08/03/2024 Titrate supplemental O2 >92, wean as tolerated Pulmonology consult Thoracic surgery consult Monitor respiratory status Metastatic [id number] lung cancer Last chemo session 06/26/[address] Sullivan Oncology consult Hx of CVA/HLD/CAD Hold rosuvastatin due to adverse reaction to atorvastatin Continue nitroglycerin HTN BP soft Hold lisinopril for now Continue metoprolol DRN/DNI, verified with pt Attending:?Dr. Thornton DVT Prophylaxis: Pneumatic compression due to possible thoracic procedure Pt will require a hospitalization of at least two nights for treatment of?acute hypoxic respiratory failure in the setting of multifocal cavitations vs abscesses with sepsis. Pt will require hospital level care for administration of IV antibiotics, supplemental oxygen, and specialist consultation with pulmonology and thoracic surgery. Quality Stroke Does the patient have a stroke diagnosis?: No VTE Prior VTE?: No VTE Risk Level:: Medical - moderate - high VTE Device Contraindication: N/A - Device Ordered VTE Drug Contraindication: Treatment Not Indicated
[2024-08-03 22:21] VITALS: BP 105/57; PULSE 75; RESP 24; TEMP 36.6; O2SAT 97
--- NOTE | 2024-08-03 22:26 | PHA.MEDREC ---
Addendum entered by Avinash Wing 08/03/24 22:57: reviewed - correction, pt is unsure if taking ezetimibe Original Note: Pharmacy Consult ? Medication Reconciliation Pharmacy has completed the medication reconciliation. Spoke with eufemia and he cofniremd his medicaiotns. States he has not taking his Aspirin 81mg tab, Lorazepam 0.5mg tab or Trazodone 50mg tab and has not in a few months . He states he is not taking any antibiotics at this time when I asked him about the Azithromycin. He was not sure if he was taking the Escitalopram tab or not still and stated we could call his mother @ [phone] in the morning to confirm that. He confirm the Rosuvastatin 5mg tab 3 times a week and confirm Mo We Fr but also states he is not consistent with taking it Mo We Fr and will sometimes take it 3 random days of the week. He confirmed he has not taken any of his other medications in about a week.
[2024-08-03 22:28] LABS: Cancel Lactic Acid Canceled
[2024-08-03] MEDS: Piperacillin Sodium/Tazobactam 3.375 GM in 0.9 % Sodium Chloride 50 ML IV (22:29)
[2024-08-03] MEDS: Potassium Chloride Packet 20 MEQ PACKET 60 MEQ PO (22:31)
[2024-08-03 22:33] LABS: Appearance Urine Clear; Color Urine Yellow; Glucose Urine UA 100 mg/dL (Negative); Leukocyte Esterase Urine Negative (Negative); Nitrite Urine Negative (Negative); Specific Gravity - Urine >= 1.030 (1.005-1.025); Urine Blood Negative (Negative); Urine Ketones 40 mg/dL (Negative); Urine Protein Trace mg/dL (Neg-Trace)
[2024-08-03] MEDS: vancomycin HCL 1,500 MG in 0.9 % Sodium Chloride 500 ML 333.33 MG IV (22:38)
[2024-08-03] MEDS: Potassium Chloride/H20 10 MEQ/100 ML PIGGYBACK 100 MEQ IV ×2 (22:51→23:43)
--- NOTE | 2024-08-03 22:53 | PHA.PROG ---
Admission Date/Time: August 03, 2024 21:58 Indication: Sepsis Weight in k.967 kg Adjusted body weight in Kg: [place] body weight in Kg: Obesity Dosing Indication % IBW: Serum Creatinine - Last 168 Hours 08/03/24 18:26 Creatinine 0.64 Estimated CrCl and GFR - Last 168 Hours 08/03/24 18:26 Estim Creat Clear Calc 101.0 Estimated GFR > 60 Vancomycin Loading Dose: 1500mg Current Vancomycin Dosing Regimen: 1000mg q12H Vancomycin Monitoring using AUC goal of 400 - 600 range with trough as surrogate marker: 504 mg/L Date and Time for next Vancomycin Level to be drawn:08/04/2024 @2100 Pharmacist Comments on Vancomycin Plan: Vancomycin dosing will take advantage of [employer] as a clinical decision support tool that uses Bayesian modeling to calculate individual patient's pharmacokinetic parameters and forecast the patient's drug concentration time course with the target goal AUC 24 range of 400 - 600 mg/L/hr.
[2024-08-04] VITALS (9 sets, daily range): BP systolic 96–125; BP diastolic 47–65; PULSE 60–80; RESP 16–26; TEMP 36.2–36.6; O2SAT 97–99
[2024-08-04] MEDS: 0.9 % Sodium Chloride Flush 3 ML SYRINGE IVFLUSH ×2 (00:13→15:49)
[2024-08-04] MEDS: Potassium Chloride/H20 10 MEQ/100 ML PIGGYBACK 100 MEQ IV ×2 (00:41→01:36)
[2024-08-04] MEDS: cefEPime HCl/D5W 2 GM/50 ML PIGGYBACK IV ×3 (01:36→16:44)
[2024-08-04] MEDS: Benzonatate 100 MG CAPSULE PO ×2 (02:28→21:17)
[2024-08-04 04:41] LABS: MANUAL DIFF FLAG NO
[2024-08-04 04:44] LABS: Basophils Percent Auto 0.3 % (0-2); Hematocrit 24.6 % (42.0-52.0); Hemoglobin 7.5 g/dl (14.0-18.0); Imm Gran Abs Auto 0.05 X10*3/uL (0.00-0.03); Imm Gran Pct Auto 0.8 % (0.0-0.4); Lymphocytes Absolute Auto 0.6 X10*3/uL (1.2-4.9); Lymphocytes Percent Auto 9.5 % (20-40); Mean Corpuscular HGB Conc 30.5 g/dl (31.0-36.0); Mean Corpuscular Hemoglobin 27.1 pg (27.0-33.0); Mean Corpuscular Volume 88.8 fL (80.0-98.0); Mean Platelet Volume 9.2 fL (9.4-12.4); Monocytes Absolute Auto 0.2 X10*3/uL (0.1-1.2); Monocytes Percent Auto 3.5 % (2-11); Neutrophils Absolute Auto 5.6 x10*3/uL (2.0-8.3); Neutrophils Percent Auto 85.9 % (45-73); Platelet Count 171 X10*3/uL (160-400); Red Blood Count 2.77 X10*6/uL (4.60-5.80); Red Cell Distribution Width 20.2 % (11.0-16.0); White Blood Count 6.5 X10*3/uL (4.8-10.8)
[2024-08-04 05:01] LABS: Anion Gap 12 (12-20); Blood Urea Nitrogen 11 mg/dL (9-16); Carbon Dioxide 26 mmol/L (22-29); Chloride 101 mmol/L (96-108); Creatinine Clr Calc Pharmacy 104.3; Estimated Glomerular Filt Rate > 60; Glucose Random 251 mg/dL (60-115); Potassium 3.9 mmol/L (3.3-5.1); Sodium 135 mmol/L (135-145)
--- NOTE | 2024-08-04 08:40 | PM.HEMONCCN ---
Subjective - Subjective Chief complaint: Shortness of breath Patient: known to practice within the last 3 years Consult date: 08/04/24 Primary Care Provider: None Physician Medical Summary: Diagnosis: Advanced squamous cell carcinoma Diagnosed with squamous cell carcinoma originating in the right lung when he went for lung cancer screening in 01/2024. He is a chronic heavy smoker starting at age 16. [address] chest without contrast performed 02/04/2024 revealed a large right infrahilar pulmonary mass occluding the right lower lobe bronchus measuring 5.7 x 7.6 x 4.5 cm. Enlarged subcarinal lymph node measuring 3.3 x 3.3 cm. Transbronchial biopsy performed 04/20/2024 showed poorly differentiated squamous cell carcinoma. He had a stroke long time ago and a non-STEMI, coronary artery disease. He has been diagnosed with glaucoma and has chronic problems with his eyes. His vision is however good. Pembrolizumab, carboplatin and Abraxane started 1st cycle 06/05/24. Second cycle 06/26/24. Design Manager Utilized?: No - Urdu Speaking HPI - Consult Narrative Reason for consult: Worsening disease/pneumonia, on chemotherapy for lung cancer Narrative: Livan Catherine is a 63 year old male who has been diagnosed with metastatic squamous cell carcinoma of lung presented with worsening shortness of breath. Overall he has been declining in the last few weeks. He was seen in the clinic last week when he decided that he could not tolerate chemotherapy anymore. He agreed to single agent immunotherapy. He was started on azithromycin for probable bronchitis. In the ED pt was febrile to 100.5, tachycardic up to 102, tachycardic up to 25, and hypoxic at 83% on RA for EMS. Labs were significant for leukocytosis of 12.5, chronic normocytic anemia of 8.2/25.5, sodium 134, potassium 2.8, lactic acid 3.7 with repeat 2.2, and albumin 2.2. Tested negative for flu, RSV, COVID. CXR showed prominent cavitary process involving right lung possibly reflecting progression of known malignancy, though superimposed infection also on differential. CT?of chest showed likely disease progression involving infiltrate right perihilar mass with multifocal cavitations vs abscess vs hydro pneumothoraces. Also found subtle ground-glass/nodular consolidations throughout left lung possibly reflecting superimposed aspiration. EKG demonstrated sinus tachycardia [address] and T-wave abnormalities. Pt was treated with IVF, Mag sulfate, and cefepime. Pt will be admitted to the hospital for treatment and further evaluation of acute hypoxic respiratory failure in the setting of multifocal cavitations vs abscesses. He denies any chest pain at this time he feels tired. Review of Systems - Constitutional Reports as per [facility] Medical History: Medical History (Last Updated 08/04/24 @ 09:47 by Jeffery Montesinos MD) Abnormal PET scan of lung Colonoscopy refused Coronary artery disease Dyslipidemia Essential hypertension Glaucoma History of CVA with residual deficit History of non-ST elevation myocardial infarction (NSTEMI) History of retinal detachment Lung cancer Onset Date: ~2023 Lung mass Mild intermittent asthma Nicotine dependence, cigarettes, uncomplicated Pneumonia Vitreous floaters of right eye Family History: Family History (Last Reviewed 07/31/24 @ 11:30 by Jazmyne Gutierrez) Father HTN (hypertension) Diabetes mellitus Brother Substance use disorder Paternal Uncle Cancer Surgical History: Surgical History (Last Reviewed 07/31/24 @ 11:30 by Jazmyne Gutierrez) History of cataract surgery History of eye surgery History of heart artery stent History of lung biopsy Social History: Social History (Last Reviewed 07/31/24 @ 11:30 by Jazmyne Gutierrez) Living Situation History: Household Members: Family Housing: House Are you a primary acute care clinical nurse specialist to a significant other at home: No Do you presently have visiting nurse or other home services: No Tobacco History: Patient Tobacco Use Status: Current everyday Tobacco Tobacco use type: Cigarette Cigarette Packs Per Day: 1 Years Smoked: (onset 17yo, 1-2ppd x 46yrs, 60+PYH) e-Cigarette/Vaping Use: Never Used Substance Use History: Substance Use Type: Marijuana Advance Directives: Advance Directives: No Advance Directives Information Provided: No Occupation Assessmet: service: Yes Current occupational status: unemployed Current occupational status: disabled Sex/Gender Assessment: Gender identity: Male Home Medications and Allergies Current Medications: Current Medications Acetaminophen (Acetaminophen 325 Mg Tablet) 650 mg PO Q6H PRN PRN Reason: Pain, Mild 1-3,fever,headache Albuterol Sulfate (Albuterol Sulfate 90 Mcg 8 Gm Inhaler) 2 puff INHALE Q6H PRN PRN Reason: Shortness of Breath/Wheezing Benzonatate (Benzonatate 100 Mg Capsule) 100 mg PO TID PRN PRN Reason: Cough Last Admin: 08/04/24 02:28 Dose: 100 mg Calcium Carbonate (Calcium Carbonate 750 Mg Tab.Chew) 750 mg PO Q4H PRN PRN Reason: Heartburn Cefepime HCl (Maxipime) 2 gm in 50 mls @ 100 mls/hr IV Q8H [facility] Last Infusion: 08/04/24 02:24 Dose: Infused Vancomycin HCl 1,000 mg/ (Sodium Chloride) 270 mls @ 270 mls/hr IV Q12H [place] Magnesium Hydroxide (Milk Of Magnesia 30 Ml Oral.Susp) 30 ml PO DAILY PRN PRN Reason: Constipation Melatonin (Melatonin 3 Mg Tablet) 6 mg PO BEDTIME PRN PRN Reason: Insomnia Metoprolol Succinate (Metoprolol Succinate Er 25 Mg Tab.Er.24h) 25 mg PO DAILY [place]; Protocol Nitroglycerin (Nitroglycerin 0.4 Mg Tab.Subl) 0.4 mg SUBLINGUAL Q5MX3 PRN PRN Reason: Chest Pain Ondansetron HCl (Ondansetron Hcl 4 Mg/2 Ml Vial) 4 mg IVPUSH Q8H PRN PRN Reason: Nausea and Vomiting Pharmacy Consult (Consult Rx Vancomycin Dosing) 1 each MISCELLANE DAILY PRN PRN Reason: Consult order Sodium Chloride (0.9 % Sodium Chloride Flush 3 Ml Syringe) [address] [facility] Last Admin: 08/04/24 00:13 Dose: 3 ml Home Medications ?Medication ?Instructions ?Recorded ?Confirmed ?Type nitroglycerin 0.4 mg sublingual 0.4 mg sublingual DAILY 07/18/20 08/03/24 History tablet rosuvastatin 5 mg tablet 5 mg PO MOWEFR 08/03/24 08/03/24 History Allergies Allergy/AdvReac Type Severity Reaction Status Date / Time atorvastatin AdvReac Intermediate leg pain Verified 08/03/24 18:01 Physical Exam Vital signs: Vital Signs Temp 97.5 F 08/04/24 05:39 Pulse 71 08/04/24 05:39 Resp 16 08/04/24 05:39 BP 106/65 08/04/24 05:39 Pulse Ox 97 08/04/24 05:39 O2 Del Method Room Air 08/04/24 05:39 O2 Flow Rate 4 08/04/24 03:58 Intake & Output 08/03/24 08/04/24 08/04/24 18:59 06:59 18:59 Intake Total 3125.001 / 3125.001 Balance 3125.001 / 3125.001 Intake: Intake, IV Amount 3125.001 / 3125.001 Magnesium Sulfate/D5W 1 gm In 100 / 100 100 ml @ 300 mls/hr IV ONCE ONE Rx#:[id number] Piperacillin Sodium/Tazobactam 50 / 50 3.375 gm In 0.9 % Sodium Chloride 50 ml @ 100 mls/hr IV ONCE ONE Rx#:[id number] Potassium Chloride/H20 10 meq 375.001 / 375.001 In 100 ml @ 100 mls/hr IV Q1H [place] Rx#:[id number] cefEPime HCl/D5W 2 gm In 50 ml 100 / 100 @ 100 mls/hr IV Q8H [place] Rx#: [id number] vancomycin HCL 1,500 mg In 0.9 500 / 500 % Sodium Chloride 500 ml @ 333. 333 mls/hr IV ONCE ONE Rx#: [id number] 0.9 % Sodium Chloride 1,000 ml 2000 / 2000 @ 999 mls/hr IVCONT .Q1H1M ONE Rx#:[id number] Other: Weight 58.967 kg Weight 58.967 kg - Constitutional Present: no acute distress, chronically ill appearing - Routine HEENT Exam Head: Present: normal inspection Eye: Present: PERRL - Routine Neck Exam Present: supple. Absent: lymphadenopathy - Routine Respiratory Exam Present: decreased breath sounds. Absent: accessory muscle use - Routine Cardiovascular Exam Cardiovascular: Present: RRR, S1, S2, tachycardia - Routine Abdominal Exam Present: soft - Routine Extremities Exam Absent: pedal edema - Routine Skin Exam Present: intact, pallor Hem/Onc Consult Result - Labs CBC & Chem 7: 08/04/24 04:27 08/04/24 04:27 Labs: Short CBC 08/03/24 08/04/24 Range/Units 18:26 04:27 WBC 12.5 H 6.5 (4.8-10.8) X10*3/uL Hgb 8.2 L 7.5 L (14.0-18.0) g/dl Hct 25.5 L 24.6 L (42.0-52.0) % Plt Count 211 D 171 (160-400) X10*3/uL BMP 08/03/24 08/04/24 08/04/24 18:26 04:27 04:27 Sodium 134 L 135 Potassium 2.8 L* 3.9 D Chloride 96 101 Carbon Dioxide 22 26 BUN 9 11 Creatinine 0.64 0.62 Cancelled Calcium 8.1 L 8.0 L Liver Function 08/03/24 Range/Units 18:26 Total Bilirubin 0.9 (0.0-1.0) mg/dL Direct Bilirubin 0.6 H (0.0-0.5) mg/dL AST 26 (5-37) U/L ALT 13 (0-40) U/L Alkaline Phosphatase 90 (39-117) U/L Albumin 2.2 L (3.5-5.0) g/dL Urine 08/03/24 Range/Units 22:25 Urine Color Yellow Urine Appearance Clear Urine pH 6.0 (5.0-9.0) Ur Specific [place] >= 1.030 H (1.005-1.025) Urine Protein Trace (Neg-Trace) mg/dL Urine Glucose (UA) 100 H (Negative) mg/dL Assessment and Plan Patient Active problem list reviewed?: Yes (1) Non-small cell cancer of right lung Status: Chronic Assessment and plan: 1. This is a 63-year-old male who has been diagnosed with advanced lung cancer originating in the right lung diagnosed in January 2024. Transbronchial biopsy of right mainstem bronchus performed 04/20/2024 revealed poorly differentiated squamous cell carcinoma. Immunostains show positivity for P40 and P60, negative for TTF 1 and Napsin A. PDL1 positive, TPS 3%. 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 Negative for EGFR, BRAF, ALK, ROS1, RET, met, ERBB2. MSI stabe, TMB 11.1 M/MB. PET scan performed at [facility] on 03/23/2024 showed: Metabolically active large right hilar mass with SUV 13.4, adjacent right lower lobe cavitary lesion and mediastinal lymphadenopathy. FDG avid precarinal lymph node with SUV 9.9. Small focus of activity within left inferior pubic ramus may represent developing osseous metastatic disease. Brain MRI with and without contrast performed 05/05/2024 showed no metastatic disease, small-vessel occlusive disease. Sequelae of prior stroke. Bone scan showed no evidence of osseous metastasis however focal osteolytic lesion seen in the inferior ischiopubic ramus remains suspicious for metastatic disease. Proceeding with biopsy of this lesion, was discussed, however he declined. He started chemo immunotherapy with carboplatin AUC 5, Abraxane 100 mg/meter squared day 1,8,15 and pembrolizumab 200 mg Q 21 days in the first-line setting for advanced/metastatic squamous cell carcinoma. He received 2 cycles. He now presents with worsening shortness of breath. Unfortunately CT chest performed 08/03/2024 shows progressive disease with infiltrative right perihilar mass, multifocal cavitation, abscess or hydro pneumothoraces in the differential diagnosis. Necrotic mediastinal and right hilar lymphadenopathy. He is receiving cefepime, pulmonary recommendations awaited. Continue supportive care. 2. Anemia secondary to ongoing treatment and malignancy. Transfuse 1 unit PRBC. Thank you for the consult. - Time Spent With Patient Time Spent with Patient (in minutes): 15 Additional Coding: - Additional E/M codes Complex E/M visit Add On: CPT G2211
--- NOTE | 2024-08-04 09:42 | PM.CNPUL ---
History of Present Illness History of Present Illness Consult date: 08/04/24 Chief complaint: dyspnea Narrative: This is an inpatient pulmonary consultation. The patient is a 63-year-old male with a PMH significant for?metastatic non-small cell lung cancer on chemo, hx of CVA, CAD w/ NSTEMI s/p stenting, COPD not on home O2, HTN, anemia, and glaucoma who presents to the ED with?worsening SOB and productive cough. Pt with chronic SOB and cough, the pt notes it has been worsening in the past couple of weeks. Cough has been productive of brown, yellow, and white sputum. pt reports he has been coughing up ?lots and lots? of sputum has felt fatigued and with subjective fever and chills. Reports a ?little? episode of diarrhea today, but otherwise endorses mostly constipation. Reports reduced p.o. intake. Pt presents today due to worsening symptoms and that he ?just could not take it any longer? no chest pain/pressure, palpitations. No nausea, vomiting, abdominal pain. Reports last session of chemotherapy approximately 1 month ago. Follows with Dr. Sullivan. In the ED pt was febrile to 100.5, tachycardic up to 102, tachycardic up to 25, and hypoxic at 83% on RA for EMS. Labs were significant for leukocytosis of 12.5, chronic normocytic anemia of 8.2/25.5, sodium 134, potassium 2.8, lactic acid 3.7 with repeat 2.2, and albumin 2.2. Tested negative for flu, RSV, COVID. CXR showed prominent cavitary process involving right lung possibly reflecting progression of known malignancy, though superimposed infection also on differential. I personally reviewed his CT scan of the chest. The CT?of chest demonstrates disease progression involving infiltrate right perihilar mass with multifocal cavitations with hydro pneumothoraces. Also found subtle ground-glass/nodular consolidations throughout left lung possibly reflecting superimposed aspiration. I did speak to the patient about the progression of his cancer. At this point he just does not want to worry about the longevity but more the quality of his life and being comfortable. He wants to have ?good days?. Therefore, go ahead and treat his pneumonia. Will be reasonable to get hospice to evaluate him. In view of the progression of his cancer in his poor functional status would not pursue any aggressive interventions for the hydropneumothorax. Review of Systems Constitutional: Constitutional: Reports fatigue and Reports malaise Eyes: Eyes: Reports no additional eye complaints ENT: Reports nasal congestion and Reports nasal discharge Cardiovascular: Cardiovascular: Denies chest pain, Reports dyspnea and Reports dyspnea on exertion Respiratory: Respiratory: Reports cough, Denies hemoptysis, Reports dyspnea, Reports dyspnea on exertion and Denies wheezing Gastrointestinal: Gastrointestinal: Reports no additional gastrointestinal complaints Musculoskeletal: Musculoskeletal: Reports abnormal gait and Reports muscle weakness Integumentary/Breasts: Skin/Breast: Denies rash Neurologic: Reports abnormal gait Endocrine: Endocrine: Reports fatigue Hematologic/Lymphatic: Hematologic/Lymphatic: Denies easy bleeding, Denies easy bruising and Denies lymphadenopathy Allergic/Immunologic: Allergic/Immunologic: Denies wheezing [facility] Past Medical History Medical History (Updated 08/04/24 @ 09:48 by Jeffery Montesinos MD) Pneumonia Lung cancer (~2023) Abnormal PET scan of lung Lung mass History of non-ST elevation myocardial infarction (NSTEMI) Nicotine dependence, cigarettes, uncomplicated Glaucoma Vitreous floaters of right eye Mild intermittent asthma History of CVA with residual deficit Coronary artery disease History of retinal detachment Colonoscopy refused Essential hypertension Dyslipidemia Family History Family History Father HTN (hypertension) Diabetes mellitus Brother Substance use disorder Paternal Uncle Cancer Surgical History Surgical History History of lung biopsy History of cataract surgery History of heart artery stent History of eye surgery Social History Social History Household Members: Family Housing: House Are you a primary resident care technician to a significant other at home: No Do you presently have visiting nurse or other home services: No Alcohol intake: never Patient Tobacco Use Status: Current everyday Tobacco user Tobacco use type: Cigarette Cigarette Packs Per Day: 1 Years Smoked: (onset 17yo, 1-2ppd x 46yrs, 60+PYH) e-Cigarette/Vaping Use: Never Used Substance Use Type: Marijuana Advance Directives: No Advance Directives Information Provided: No service: Yes Current occupational status: unemployed and disabled Gender identity: Male Cognitive needs: No Hearing needs: No Vision needs: No Meds Allergies Allergy/AdvReac Type Severity Reaction Status Date / Time atorvastatin AdvReac Intermediate leg pain Verified 08/03/24 18:01 Active Medications: Current Medications Acetaminophen (Acetaminophen 325 Mg Tablet) 650 mg PO Q6H PRN PRN Reason: Pain, Mild 1-3,fever,headache Albuterol Sulfate (Albuterol Sulfate 90 Mcg 8 Gm Inhaler) 2 puff INHALE Q6H PRN PRN Reason: Shortness of Breath/Wheezing Benzonatate (Benzonatate 100 Mg Capsule) 100 mg PO TID PRN PRN Reason: Cough Last Admin: 08/04/24 02:28 Dose: 100 mg Calcium Carbonate (Calcium Carbonate 750 Mg Tab.Chew) 750 mg PO Q4H PRN PRN Reason: Heartburn Cefepime HCl (Maxipime) 2 gm in 50 mls @ 100 mls/hr IV Q8H [facility] Last Infusion: 08/04/24 02:24 Dose: Infused Vancomycin HCl 1,000 mg/ (Sodium Chloride) 270 mls @ 270 mls/hr IV Q12H [place] Magnesium Hydroxide (Milk Of Magnesia 30 Ml Oral.Susp) 30 ml PO DAILY PRN PRN Reason: Constipation Melatonin (Melatonin 3 Mg Tablet) 6 mg PO BEDTIME PRN PRN Reason: Insomnia Metoprolol Succinate (Metoprolol Succinate Er 25 Mg Tab.Er.24h) 25 mg PO DAILY [place]; Protocol Nitroglycerin (Nitroglycerin 0.4 Mg Tab.Subl) 0.4 mg SUBLINGUAL Q5MX3 PRN PRN Reason: Chest Pain Ondansetron HCl (Ondansetron Hcl 4 Mg/2 Ml Vial) 4 mg IVPUSH Q8H PRN PRN Reason: Nausea and Vomiting Pharmacy Consult (Consult Rx Vancomycin Dosing) 1 each MISCELLANE DAILY PRN PRN Reason: Consult order Sodium Chloride (0.9 % Sodium Chloride Flush 3 Ml Syringe) 3 ml IVFLUSH QSHIFT [facility] Last Admin: 08/04/24 09:23 Dose: Not Given Home Medications ?Medication ?Instructions ?Recorded ?Confirmed ?Last Taken ?Type nitroglycerin 0.4 mg sublingual 0.4 mg sublingual DAILY 07/18/20 08/03/24 1 Week Ago History tablet ~07/27/24 rosuvastatin 5 mg tablet 5 mg PO MOWEFR 08/03/24 08/03/24 1 Week Ago History ~07/27/24 Physical Exam Vital Signs: Vital Signs: Last Vital Signs Temp 97.5 F 08/04/24 05:39 Pulse 71 08/04/24 05:39 Resp 16 08/04/24 05:39 BP 106/65 08/04/24 05:39 Pulse Ox 97 08/04/24 05:39 O2 Del Method Room Air 08/04/24 05:39 O2 Flow Rate 4 08/04/24 03:58 BMI result Body Mass Index 19.2 Const: General: ill appearing Nutritional Appearance: underweight HEENT: Head: Yes normocephalic Neck: Neck: Yes supple Chest: Chest palpation & inspection: normal inspection of the chest Resp: Effort & Inspection: normal respiratory effort Auscultation: diminished lung sounds Cardio: Heart sounds: S1 normal heart sound present and S2 normal heart sound present Skin: General skin exam: no rashes or lesions noted Extrem: General: No cyanosis Results Laboratory Findings 08/04/24 04:27 08/04/24 04:27 ABG, PT/INR, D-dimer: PT/INR, D-dimer PT 18.7 SEC (10.9-12.4) H D 08/03/24 18:45 INR 1.6 (0.9-1.1) H 08/03/24 18:45 Abnormal lab findings: Abnormal Labs 08/03/24 08/03/24 08/03/24 18:26 18:29 18:45 WBC 12.5 H RBC 2.93 L Hgb 8.2 L Hct 25.5 L MCHC RDW 20.1 H MPV 9.0 L Immature Gran % (Auto) 1.0 H Neut % (Auto) 83.4 H Lymph % (Auto) 8.3 L Lymph # (Auto) 1.0 L Abs Immat Gran (auto) 0.13 H Absolute Neuts (auto) 10.4 H PT 18.7 H D INR 1.6 H VBG pH 7.50 H VBG HCO3 27 H Sodium 134 L Potassium 2.8 L* Random Glucose 178 H Lactic Acid 3.7 H* Lactic Acid F/U @ 2Hr Calcium 8.1 L Direct Bilirubin 0.6 H Total Protein 5.8 L Albumin 2.2 L Ur Specific [place] Urine Glucose (UA) 08/03/24 08/03/24 08/04/24 20:37 22:25 04:27 WBC RBC 2.77 L Hgb 7.5 L Hct 24.6 L MCHC 30.5 L RDW 20.2 H MPV 9.2 L Immature Gran % (Auto) 0.8 H Neut % (Auto) 85.9 H Lymph % (Auto) 9.5 L Lymph # (Auto) 0.6 L Abs Immat Gran (auto) 0.05 H Absolute Neuts (auto) PT INR VBG pH VBG HCO3 Sodium Potassium Random Glucose 251 H Lactic Acid Lactic Acid F/U @ 2Hr 2.2 H* Calcium 8.0 L Direct Bilirubin Total Protein Albumin Ur Specific [place] >= 1.030 H Urine Glucose (UA) 100 H Assessment and Plan (1) Acute hypoxic respiratory failure: Status: Acute (2) Cavitating mass of lung: Status: Acute (3) Non-small cell cancer of right lung: Status: Chronic (4) Pneumonia: Qualifiers: Laterality: unspecified laterality Lung location: unspecified part of lung Pneumonia type: due to unspecified organism Qualified Code(s): J18.9 - Pneumonia, unspecified organism Status: Acute Plan continue Bro[place] spectrum antibiotics Oxygen to keep pox>90% respiratory therapy Hold off on semi invasive or invasive procedures at this time Goals of care. I do believe the patient would benefit from hospice in view of his worsening cancer, refractory to the chemo therapy, now with a very poor fuctional status. Procedures Date of Service Date of Service: 08/04/24
--- NOTE | 2024-08-04 10:08 | HO.THORCON_ITS ---
History of Present Illness Consult details Consult date: 08/04/24 Narrative: Patient was in unfortunately 63-year-old male with a collection of comorbidities and intercurrent medical problems including local regionally advanced right lung cancer (squamous cell). This was diagnosed last fall. Patient has had progression of disease despite chemotherapy and immunotherapy. He presents here with worsening shortness of breath. CT scan findings are quite concerning for significant tumor burden involving the right hilum with obstructive atelectasis and infective changes to the right lung.. Chart was reviewed and patient evaluate [facility] Past Medical History Medical History (Updated 08/04/24 @ 10:12 by David Bruce MD) Pneumonia Lung cancer (~2023) Abnormal PET scan of lung Lung mass History of non-ST elevation myocardial infarction (NSTEMI) Nicotine dependence, cigarettes, uncomplicated Glaucoma Vitreous floaters of right eye Mild intermittent asthma History of CVA with residual deficit Coronary artery disease History of retinal detachment Colonoscopy refused Essential hypertension Dyslipidemia Family History Family History Father HTN (hypertension) Diabetes mellitus Brother Substance use disorder Paternal Uncle Cancer Surgical History Surgical History History of lung biopsy History of cataract surgery History of heart artery stent History of eye surgery Social History Social History Household Members: Family Housing: House Are you a primary medication care manager to a significant other at home: No Do you presently have visiting nurse or other home services: No Alcohol intake: never Patient Tobacco Use Status: Current everyday Tobacco user Tobacco use type: Cigarette Cigarette Packs Per Day: 1 Years Smoked: (onset 17yo, 1-2ppd x 46yrs, 60+PYH) e-Cigarette/Vaping Use: Never Used Substance Use Type: Marijuana Advance Directives: No Advance Directives Information Provided: No service: Yes Current occupational status: unemployed and disabled Gender identity: Male Cognitive needs: No Hearing needs: No Vision needs: No Meds Allergies Allergy/AdvReac Type Severity Reaction Status Date / Time atorvastatin AdvReac Intermediate leg pain Verified 08/03/24 18:01 Active Medications: Current Medications Acetaminophen (Acetaminophen 325 Mg Tablet) 650 mg PO Q6H PRN PRN Reason: Pain, Mild 1-3,fever,headache Albuterol Sulfate (Albuterol Sulfate 90 Mcg 8 Gm Inhaler) 2 puff INHALE Q6H PRN PRN Reason: Shortness of Breath/Wheezing Benzonatate (Benzonatate 100 Mg Capsule) 100 mg PO TID PRN PRN Reason: Cough Last Admin: 08/04/24 02:28 Dose: 100 mg Calcium Carbonate (Calcium Carbonate 750 Mg Tab.Chew) 750 mg PO Q4H PRN PRN Reason: Heartburn Cefepime HCl (Maxipime) 2 gm in 50 mls @ 100 mls/hr IV Q8H [facility] Last Infusion: 08/04/24 02:24 Dose: Infused Vancomycin HCl 1,000 mg/ (Sodium Chloride) 270 mls @ 270 mls/hr IV Q12H [facility] Magnesium Hydroxide (Milk Of Magnesia 30 Ml Oral.Susp) 30 ml PO DAILY PRN PRN Reason: Constipation Melatonin (Melatonin 3 Mg Tablet) 6 mg PO BEDTIME PRN PRN Reason: Insomnia Metoprolol Succinate (Metoprolol Succinate Er 25 Mg Tab.Er.24h) 25 mg PO DAILY [facility]; Protocol Nitroglycerin (Nitroglycerin 0.4 Mg Tab.Subl) 0.4 mg SUBLINGUAL Q5MX3 PRN PRN Reason: Chest Pain Ondansetron HCl (Ondansetron Hcl 4 Mg/2 Ml Vial) 4 mg IVPUSH Q8H PRN PRN Reason: Nausea and Vomiting Pharmacy Consult (Consult Rx Vancomycin Dosing) 1 each MISCELLANE DAILY PRN PRN Reason: Consult order Sodium Chloride (0.9 % Sodium Chloride Flush 3 Ml Syringe) 3 ml IVFLUSH QSHIFT [facility] Last Admin: 08/04/24 09:23 Dose: Not Given Home Medications ?Medication ?Instructions ?Recorded ?Confirmed ?Last Taken ?Type nitroglycerin 0.4 mg sublingual 0.4 mg sublingual DAILY 07/18/20 08/03/24 1 Week Ago History tablet ~07/27/24 rosuvastatin 5 mg tablet 5 mg PO MOWEFR 08/03/24 08/03/24 1 Week Ago History ~07/27/24 Physical Exam 2 Vital Signs: Vital Signs: Last Vital Signs Temp 97.5 F 08/04/24 05:39 Pulse 71 08/04/24 05:39 Resp 16 08/04/24 05:39 BP 106/65 08/04/24 05:39 Pulse Ox 97 02/14/25 05:39 O2 Del Method Room Air 08/04/24 05:39 O2 Flow Rate 4 08/04/24 03:58 BMI result Body Mass Index 19.2 Const: Other: Very thin ill-appearing cachectic male Chest: Other: Minimal breath sounds right. Breath sounds left okay Results Labs 08/04/24 04:27 08/04/24 04:27 Labs: Abnormal lab results 08/03/24 08/03/24 08/03/24 Range/Units 18:26 18:29 18:45 WBC 12.5 H (4.8-10.8) X10*3/uL RBC 2.93 L (4.60-5.80) X10*6/uL Hgb 8.2 L (14.0-18.0) g/dl Hct 25.5 L (42.0-52.0) % MCHC (31.0-36.0) g/dl RDW 20.1 H (11.0-16.0) % MPV 9.0 L (9.4-12.4) fL Immature Gran % (Auto) 1.0 H (0.0-0.4) % Neut % (Auto) 83.4 H (45-73) % Lymph % (Auto) 8.3 L (20-40) % Lymph # (Auto) 1.0 L (1.2-4.9) X10*3/uL Abs Immat Gran (auto) 0.13 H (0.00-0.03) X10*3/uL Absolute Neuts (auto) 10.4 H (2.0-8.3) x10*3/uL PT 18.7 H D (10.9-12.4) SEC INR 1.6 H (0.9-1.1) VBG pH 7.50 H (7.32-7.43) VBG HCO3 27 H (22-26) mmol/L Sodium 134 L (135-145) mmol/L Potassium 2.8 L* (3.3-5.1) mmol/L Random Glucose 178 H (60-115) mg/dL Lactic Acid 3.7 H* (0.5-2.0) mmol/L Lactic Acid F/U @ 2Hr (0.5-2.0) mmol/L Calcium 8.1 L (8.4-10.2) mg/dL Direct Bilirubin 0.6 H (0.0-0.5) mg/dL Total Protein 5.8 L (6.5-8.0) g/dL Albumin 2.2 L (3.5-5.0) g/dL Ur Specific [place] (1.005-1.025) Urine Glucose (UA) (Negative) mg/dL 08/03/24 08/03/24 08/04/24 Range/Units 20:37 22:25 04:27 WBC (4.8-10.8) X10*3/uL RBC 2.77 L (4.60-5.80) X10*6/uL Hgb 7.5 L (14.0-18.0) g/dl Hct 24.6 L (42.0-52.0) % MCHC 30.5 L (31.0-36.0) g/dl RDW 20.2 H (11.0-16.0) % MPV 9.2 L (9.4-12.4) fL Immature Gran % (Auto) 0.8 H (0.0-0.4) % Neut % (Auto) 85.9 H (45-73) % Lymph % (Auto) 9.5 L (20-40) % Lymph # (Auto) 0.6 L (1.2-4.9) X10*3/uL Abs Immat Gran (auto) 0.05 H (0.00-0.03) X10*3/uL Absolute Neuts (auto) (2.0-8.3) x10*3/uL PT (10.9-12.4) SEC INR (0.9-1.1) VBG pH (7.32-7.43) VBG HCO3 (22-26) mmol/L Sodium (135-145) mmol/L Potassium (3.3-5.1) mmol/L Random Glucose 251 H (60-115) mg/dL Lactic Acid (0.5-2.0) mmol/L Lactic Acid F/U @ 2Hr 2.2 H* (0.5-2.0) mmol/L Calcium 8.0 L (8.4-10.2) mg/dL Direct Bilirubin (0.0-0.5) mg/dL Total Protein (6.5-8.0) g/dL Albumin (3.5-5.0) g/dL Ur Specific [place] >= 1.030 H (1.005-1.025) Urine Glucose (UA) 100 H (Negative) mg/dL Short CBC 08/03/24 08/04/24 Range/Units 18:26 04:27 WBC 12.5 H 6.5 (4.8-10.8) X10*3/uL Hgb 8.2 L 7.5 L (14.0-18.0) g/dl Hct 25.5 L 24.6 L (42.0-52.0) % Plt Count 211 D 171 (160-400) X10*3/uL BMP 08/03/24 08/04/24 08/04/24 18:26 04:27 04:27 Sodium 134 L 135 Potassium 2.8 L* 3.9 D Chloride 96 101 Carbon Dioxide 22 26 BUN 9 11 Creatinine 0.64 0.62 Cancelled Calcium 8.1 L 8.0 L Liver Function 08/03/24 Range/Units 18:26 Total Bilirubin 0.9 (0.0-1.0) mg/dL Direct Bilirubin 0.6 H (0.0-0.5) mg/dL AST 26 (5-37) U/L ALT 13 (0-40) U/L Alkaline Phosphatase 90 (39-117) U/L Albumin 2.2 L (3.5-5.0) g/dL Urine 08/03/24 Range/Units 22:25 Urine Color Yellow Urine Appearance Clear Urine pH 6.0 (5.0-9.0) Ur Specific [place] >= 1.030 H (1.005-1.025) Urine Protein Trace (Neg-Trace) mg/dL Urine Glucose (UA) 100 H (Negative) mg/dL All other labs normal. 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 The CT scan findings demonstrate significant tumor burden and hydropneumothorax, this is all postobstructive in nature and chest tube placement will not alleviate his symptoms. Lung can not re-expand secondary to obstruction of major bronchi. At present, no acute surgical intervention is warranted. Continue supportive care. Further considerations for palliative care per Oncology and medicine. We will follow up p.r.n.. Procedures Date of Service Date of Service: 08/04/24
--- NOTE | 2024-08-04 10:58 | PC.NURSE ---
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 lungs have rhonchi upper/in/ex wheezing upper, pt has rt chest port and iv access to lt ac, states his pain is only 2/10 states its tolerable, pt is going to IR for a chest tube- pt was made aware of this, pt BP has been on the lower side and takes BP medications, Dr. Watson was notified and med has been held per his request. Call iyer within reach, plan of care ongoing.
--- NOTE | 2024-08-04 12:32 | P.PNIM_ITS ---
Subjective Subjective Date of Service: 08/04/24 Interval History: Follow-up on acute hypoxic respiratory failure related to suspected postobstructive pneumonia with underlying lung cancer with high tumor burden Short of breath, seems a bit better Physical Exam 2 Vital Signs: Vital Signs: Last Vital Signs Temp 97.7 F 08/04/24 10:00 Pulse 79 08/04/24 10:00 Resp 16 08/04/24 10:00 BP 100/54 L 08/04/24 10:00 Pulse Ox 98 08/04/24 10:00 O2 Del Method Nasal Cannula 08/04/24 10:00 O2 Flow Rate 4 08/04/24 10:00 BMI result Body Mass Index 19.2 Const: Other: Constitutional: Alert, in no acute distress. Mental Status: Oriented to person, place and time. Eyes: Pupils are equal, round, and reactive to light. Right eye strabismus w/ exotropia. Ear, Nose, and Throat: Oropharynx clear, mucous membranes moist. Ears and nose without deformities. Trachea midline. Respiratory: Coarse breath sounds bilaterally with rhonchi. Cardiovascular: S1, S2 regular. No murmurs, rubs, or gallops. Gastrointestinal: Abdomen soft, non-tender, non-distended. Normal bowel sounds. Neurologic: Cranial nerves II-XII are grossly intact bilaterally. No focal neurological deficits. Moves all extremities spontaneously. Skin: Warm, dry. Extremities: No edema. Psychiatric: Normal mood and affect. Objective Data Active Medications Acetaminophen (Acetaminophen 325 Mg Tablet) 650 mg PO Q6H PRN PRN Reason: Pain, Mild 1-3,fever,headache Albuterol Sulfate (Albuterol Sulfate 90 Mcg 8 Gm Inhaler) 2 puff INHALE Q6H PRN PRN Reason: Shortness of Breath/Wheezing Benzonatate (Benzonatate 100 Mg Capsule) 100 mg PO TID PRN PRN Reason: Cough Last Admin: 08/04/24 02:28 Dose: 100 mg Documented By: COOPEB Calcium Carbonate (Calcium Carbonate 750 Mg Tab.Chew) 750 mg PO Q4H PRN PRN Reason: Heartburn Cefepime HCl (Maxipime) 2 gm in 50 mls @ 100 mls/hr IV Q8H [place] Last Admin: 08/04/24 10:51 Dose: 100 mls/hr Documented By: MARTY Vancomycin HCl 1,000 mg/ (Sodium Chloride) 270 mls @ 270 mls/hr IV Q12H [facility] Magnesium Hydroxide (Milk Of Magnesia 30 Ml Oral.Susp) 30 ml PO DAILY PRN PRN Reason: Constipation Melatonin (Melatonin 3 Mg Tablet) 6 mg PO BEDTIME PRN PRN Reason: Insomnia Metoprolol Succinate (Metoprolol Succinate Er 25 Mg Tab.Er.24h) 25 mg PO DAILY [facility]; Protocol Last Admin: 08/04/24 10:57 Dose: Not Given Documented By: MARTY Non-Admin Reason: Physician Held Med Nitroglycerin (Nitroglycerin 0.4 Mg Tab.Subl) 0.4 mg SUBLINGUAL Q5MX3 PRN PRN Reason: Chest Pain Ondansetron HCl (Ondansetron Hcl 4 Mg/2 Ml Vial) 4 mg IVPUSH Q8H PRN PRN Reason: Nausea and Vomiting Pharmacy Consult (Consult Rx Vancomycin Dosing) 1 each MISCELLANE DAILY PRN PRN Reason: Consult order Sodium Chloride (0.9 % Sodium Chloride Flush 3 Ml Syringe) 3 ml IVFLUSH QSHIFT [facility] Last Admin: 08/04/24 09:23 Dose: Not Given Documented By: MARTY Non-Admin Reason: See Note Labs 08/04/24 04:27 08/04/24 04:27 Labs: Laboratory Results - last 24 hr 08/03/24 08/03/24 08/03/24 18:26 18:29 18:45 MCV 87.0 MCH 28.0 MCHC 32.2 RDW 20.1 H Plt Count 211 D MPV 9.0 L Immature Gran % (Auto) 1.0 H Neut % (Auto) 83.4 H Lymph % (Auto) 8.3 L [place] % (Auto) 7.1 Eos % (Auto) 0.0 Baso % (Auto) 0.2 Lymph # (Auto) 1.0 L [place] # (Auto) 0.9 Eos # (Auto) 0.0 Baso # (Auto) 0.0 Abs Immat Gran (auto) 0.13 H Absolute Neuts (auto) 10.4 H Absolute Nucleated RBC 0.000 Nucleated RBC % (auto) 0.0 PT 18.7 H D INR 1.6 H VBG pH 7.50 H VBG pCO2 34 VBG pO2 44 VBG HCO3 27 H VBG O2 Saturation 70.0 VBG Base Excess 4.6 Anion Gap 19 Estim Creat Clear Calc 101.0 Estimated GFR > 60 Random Glucose 178 H Lactic Acid 3.7 H* Lactic Acid F/U @ 2Hr Calcium 8.1 L Magnesium 1.8 Total Bilirubin 0.9 Direct Bilirubin 0.6 H AST 26 ALT 13 Alkaline Phosphatase 90 B-Natriuretic Peptide 92 Total Protein 5.8 L Albumin 2.2 L Urine Color Urine Appearance Urine pH Ur Specific [place] Urine Protein Urine Glucose (UA) Urine Ketones Urine Blood Urine Nitrite Ur Leukocyte Esterase Influenza Type A (PCR) NEGATIVE Influenza Type B (PCR) NEGATIVE RSV RNA Qual (PCR) NEGATIVE SARS-CoV-2 RNA (RT-PCR) NEGATIVE 08/03/24 08/03/24 08/04/24 20:37 22:25 04:27 MCV 88.8 MCH 27.1 MCHC 30.5 L RDW 20.2 H Plt Count 171 MPV 9.2 L Immature Gran % (Auto) 0.8 H Neut % (Auto) 85.9 H Lymph % (Auto) 9.5 L [place] % (Auto) 3.5 Eos % (Auto) 0.0 Baso % (Auto) 0.3 Lymph # (Auto) 0.6 L [place] # (Auto) 0.2 Eos # (Auto) 0.0 Baso # (Auto) 0.0 Abs Immat Gran (auto) 0.05 H Absolute Neuts (auto) 5.6 Absolute Nucleated RBC 0.000 Nucleated RBC % (auto) 0.0 PT INR VBG pH VBG pCO2 VBG pO2 VBG HCO3 VBG O2 Saturation VBG Base Excess Anion Gap 12 Estim Creat Clear Calc 104.3 Estimated GFR Random Glucose Lactic Acid Lactic Acid F/U @ 2Hr 2.2 H* Calcium Magnesium Total Bilirubin Direct Bilirubin AST ALT Alkaline Phosphatase B-Natriuretic Peptide Total Protein Albumin Urine Color Yellow Urine Appearance Clear Urine pH 6.0 Ur Specific [place] >= 1.030 H Urine Protein Trace Urine Glucose (UA) 100 H Urine Ketones 40 Urine Blood Negative Urine Nitrite Negative Ur Leukocyte Esterase Negative Influenza Type A (PCR) Influenza Type B (PCR) RSV RNA Qual (PCR) SARS-CoV-2 RNA (RT-PCR) 08/04/24 08/04/24 04:27 04:27 MCV MCH MCHC RDW Plt Count MPV Immature Gran % (Auto) Neut % (Auto) Lymph % (Auto) [place] % (Auto) Eos % (Auto) Baso % (Auto) Lymph # (Auto) [place] # (Auto) Eos # (Auto) Baso # (Auto) Abs Immat Gran (auto) Absolute Neuts (auto) Absolute Nucleated RBC Nucleated RBC % (auto) PT INR VBG pH VBG pCO2 VBG pO2 VBG HCO3 VBG O2 Saturation VBG Base Excess Anion Gap Estim Creat Clear Calc Cancelled Estimated GFR > 60 Cancelled Random Glucose 251 H Lactic Acid Lactic Acid F/U @ 2Hr Calcium 8.0 L Magnesium Total Bilirubin Direct Bilirubin AST ALT Alkaline Phosphatase B-Natriuretic Peptide Total Protein Albumin Urine Color Urine Appearance Urine pH Ur Specific [place] Urine Protein Urine Glucose (UA) Urine Ketones Urine Blood Urine Nitrite Ur Leukocyte Esterase Influenza Type A (PCR) Influenza Type B (PCR) RSV RNA Qual (PCR) SARS-CoV-2 RNA (RT-PCR) Assessment and Plan (1) Non-small cell cancer of right lung: Status: Chronic (2) 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 Pt will be admitted to the hospital for treatment and further evaluation of acute hypoxic respiratory failure in the setting of multifocal cavitations vs abscesses. Acute hypoxic respiratory failure in the setting of multifocal cavitations vs abscesses with sepsis with underlying lung cancer and high tumor burden as evident on CT showing disease progression of infiltrative right perihilar mass with multifocal cavitations vs abscesses vs hydro. Pulmonology and CT surgery advise non-intervention and recommends paliative/hospice care. for now continue Cefepime and vanco, follow culture. Will discuss with oncology about goals of care. Continue O2 Metastatic [id number] lung cancer Last chemo session 06/26/[address] Sullivan--see her note Hx of CVA/HLD/CAD Hold rosuvastatin due to adverse reaction to atorvastatin Continue nitroglycerin HTN BP soft, hold meds for now Acute lactic acidosis--d/t hypoxa Hypoalbuminemia--d/t moderate protein calory malnutrition supplement Anemia of chronic disease--monitor DRN/DNI, verified with pt DVT Prophylaxis: Pneumatic compression due to possible thoracic procedure, heparin and monitor anemia Pt will require a hospitalization of at least two nights for treatment of?acute hypoxic respiratory failure in the setting of multifocal cavitations vs abscesses with sepsis. Pt will require hospital level care for administration of IV antibiotics, supplemental oxygen, and specialist consultation with pulmonology and thoracic surgery. Quality Stroke Does the patient have a stroke diagnosis?: No VTE Prior VTE?: No VTE Risk Level:: Medical - moderate - high VTE Device Contraindication: N/A - Device Ordered VTE Drug Contraindication: Treatment Not Indicated
[2024-08-04] MEDS: vancomycin HCL 1,000 MG in 0.9 % Sodium Chloride 250 ML 270 MG IV (12:41)
--- NOTE | 2024-08-04 13:57 | MHC.CM.PN ---
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
[2024-08-04 22:18] LABS: Vancomycin Random 10.1 mcg/mL (15-20)
--- NOTE | 2024-08-04 22:37 | HE.PHANOTE ---
JESSICA Changed dosing to 750mg Q8H as patient renal function appears stable and trough was a bit low even after 2 doses. Predicted AUC with dosing is 467, trough 14.1. Next trough to be drawn 08/05 @2100.
[2024-08-04] MEDS: vancomycin HCL 750 MG in 0.9 % Sodium Chloride 250 ML 265 MG IV (22:51)
[2024-08-05] MEDS: cefEPime HCl/D5W 2 GM/50 ML PIGGYBACK IV ×3 (01:25→18:01)
[2024-08-05] MEDS: 0.9 % Sodium Chloride Flush 3 ML SYRINGE IVFLUSH ×4 (01:26→23:04)
[2024-08-05] MEDS: Magnesium Hydrox/Alum Hydrox 30 ML ORAL.SUSP PO (02:08)
[2024-08-05 03:37] VITALS: BP 119/60; PULSE 70; RESP 16; TEMP 36.2; O2SAT 98
[2024-08-05 06:20] LABS: Creatinine Clr Calc Pharmacy 96.5; Estimated Glomerular Filt Rate > 60
[2024-08-05] MEDS: vancomycin HCL 750 MG in 0.9 % Sodium Chloride 250 ML 265 MG IV ×3 (06:26→22:52)
[2024-08-05 07:35] LABS: MANUAL DIFF FLAG NO
[2024-08-05 07:38] VITALS: BP 123/60; PULSE 67; RESP 18; TEMP 36.9; O2SAT 99
[2024-08-05 07:48] LABS: Basophils Percent Auto 0.3 % (0-2); Hematocrit 25.2 % (42.0-52.0); Hemoglobin 7.6 g/dl (14.0-18.0); Imm Gran Abs Auto 0.12 X10*3/uL (0.00-0.03); Imm Gran Pct Auto 1.1 % (0.0-0.4); Lymphocytes Absolute Auto 1.2 X10*3/uL (1.2-4.9); Lymphocytes Percent Auto 11.1 % (20-40); Mean Corpuscular HGB Conc 30.2 g/dl (31.0-36.0); Mean Corpuscular Hemoglobin 27.3 pg (27.0-33.0); Mean Corpuscular Volume 90.6 fL (80.0-98.0); Mean Platelet Volume 9.7 fL (9.4-12.4); Monocytes Absolute Auto 0.5 X10*3/uL (0.1-1.2); Monocytes Percent Auto 4.9 % (2-11); Neutrophils Absolute Auto 9.1 x10*3/uL (2.0-8.3); Neutrophils Percent Auto 82.6 % (45-73); Platelet Count 210 X10*3/uL (160-400); Red Blood Count 2.78 X10*6/uL (4.60-5.80); Red Cell Distribution Width 20.2 % (11.0-16.0)
[2024-08-05 07:50] LABS: Anion Gap 18 (12-20); Carbon Dioxide 22 mmol/L (22-29); Chloride 103 mmol/L (96-108); Sodium 139 mmol/L (135-145)
[2024-08-05] MEDS: Metoprolol Succinate ER 25 MG TAB.ER.24H PO (08:58)
--- NOTE | 2024-08-05 09:03 | HO.PM.IMPN ---
Subjective Subjective Date of Service: 08/05/24 Interval History: Follow-up on acute hypoxic respiratory failure related to suspected postobstructive pneumonia with underlying lung cancer with high tumor burden He is much better today, breathing more comfortably. Oxygen saturation has also improved. Physical Exam Vital Signs: Vital Signs: Last Vital Signs Temp 98.4 F 08/05/24 07:38 Pulse 67 08/05/24 07:38 Resp 18 08/05/24 07:38 BP 123/60 08/05/24 07:38 Pulse Ox 99 08/05/24 07:38 O2 Del Method Nasal Cannula 08/05/24 07:38 O2 Flow Rate 4.0 08/05/24 07:38 BMI result Body Mass Index 19.2 Const: Other: Constitutional: Alert, in no acute distress. Mental Status: Oriented to person, place and time. Respiratory: Coarse breath sounds bilaterally with rhonchi. Cardiovascular: S1, S2 regular. No murmurs, rubs, or gallops. Gastrointestinal: Abdomen soft, non-tender, non-distended. Normal bowel sounds. Neurologic: Cranial nerves II-XII are grossly intact bilaterally. No focal neurological deficits. Moves all extremities spontaneously. Skin: Warm, dry. Extremities: No edema. Psychiatric: Normal mood and affect. Objective Data Active Medications Acetaminophen (Acetaminophen 325 Mg Tablet) 650 mg PO Q6H PRN PRN Reason: Pain, Mild 1-3,fever,headache Albuterol Sulfate (Albuterol Sulfate 90 Mcg 8 Gm Inhaler) 2 puff INHALE Q6H PRN PRN Reason: Shortness of Breath/Wheezing Benzonatate (Benzonatate 100 Mg Capsule) 100 mg PO TID PRN PRN Reason: Cough Last Admin: 08/04/24 21:17 Dose: 100 mg Documented By: SVITLANA Calcium Carbonate (Calcium Carbonate 750 Mg Tab.Chew) 750 mg PO Q4H PRN PRN Reason: Heartburn Cefepime HCl (Maxipime) 2 gm in 50 mls @ 100 mls/hr IV Q8H [facility] Last Infusion: 08/05/24 02:03 Dose: Infused Documented By: ALISON Vancomycin HCl 750 mg/ Sodium (Chloride) 265 mls @ 265 mls/hr IV Q8H [facility] Last Infusion: 08/05/24 07:34 Dose: Infused Documented By: HO.GRAZIC Magnesium Hydroxide (Milk Of Magnesia 30 Ml Oral.Susp) 30 ml PO DAILY PRN PRN Reason: Constipation Melatonin (Melatonin 3 Mg Tablet) 6 mg PO BEDTIME PRN PRN Reason: Insomnia Metoprolol Succinate (Metoprolol Succinate Er 25 Mg Tab.Er.24h) 25 mg PO DAILY [facility]; Protocol Last Admin: 08/05/24 08:58 Dose: 25 mg Documented By: BOO Nitroglycerin (Nitroglycerin 0.4 Mg Tab.Subl) 0.4 mg SUBLINGUAL Q5MX3 PRN PRN Reason: Chest Pain Ondansetron HCl (Ondansetron Hcl 4 Mg/2 Ml Vial) 4 mg IVPUSH Q8H PRN PRN Reason: Nausea and Vomiting Pharmacy Consult (Consult Rx Vancomycin Dosing) 1 each MISCELLANE DAILY PRN PRN Reason: Consult order Sodium Chloride (0.9 % Sodium Chloride Flush 3 Ml Syringe) 3 ml IVFLUSH QSHIFT [facility] Last Admin: 08/05/24 09:00 Dose: 3 ml Documented By: BOO Labs 08/05/24 05:49 08/05/24 05:49 Labs: Laboratory Results - last 24 hr 08/04/24 08/05/24 21:03 05:49 MCV 90.6 MCH 27.3 MCHC 30.2 L RDW 20.2 H Plt Count 210 MPV 9.7 Immature Gran % (Auto) 1.1 H Neut % (Auto) 82.6 H Lymph % (Auto) 11.1 L [place] % (Auto) 4.9 Eos % (Auto) 0.0 Baso % (Auto) 0.3 Lymph # (Auto) 1.2 [place] # (Auto) 0.5 Eos # (Auto) 0.0 Baso # (Auto) 0.0 Abs Immat Gran (auto) 0.12 H Absolute Neuts (auto) 9.1 H Absolute Nucleated RBC 0.000 Nucleated RBC % (auto) 0.0 Hold Purple Top SEE NOTE Anion Gap 18 Estim Creat Clear Calc 96.5 Estimated GFR > 60 Magnesium 2.0 Random Vancomycin 10.1 L Microbiology Microbiology Results: Microbiology 08/03/24 18:45 Blood Culture - Preliminary Blood - Venous No growth after 24 hours. 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 Pt will be admitted to the hospital for treatment and further evaluation of acute hypoxic respiratory failure in the setting of multifocal cavitations vs abscesses. Acute hypoxic respiratory failure in the setting of multifocal cavitations vs abscesses with sepsis with underlying lung cancer and high tumor burden as evident on CT showing disease progression of infiltrative right perihilar mass with multifocal cavitations vs abscesses vs hydro. Pulmonology and CT surgery advise non-intervention and recommends paliative/hospice care, I had a preliminary discussion with the patient regarding hospice and he is open to the idea for now continue Cefepime and vanco, follow culture. Will discuss with oncology about goals of care. Continue O2, and wean as tolerated Metastatic [id number] lung cancer Last chemo session 06/26/[address] Sullivan--see her note Hx of CVA/HLD/CAD Hold rosuvastatin due to adverse reaction to atorvastatin Continue nitroglycerin HTN BP soft, hold meds for now Acute lactic acidosis--d/t hypoxa Hypoalbuminemia--d/t moderate protein calory malnutrition supplement Anemia of chronic disease--monitor DRN/DNI, verified with pt DVT Prophylaxis: Pneumatic compression, heparin monitor H&H closely Ongoing hospitalization due to acute hypoxic respiratory failure in the setting of postobstructive pneumonia needing IV antibiotics. Quality Stroke Does the patient have a stroke diagnosis?: No VTE Prior VTE?: No VTE Risk Level:: Medical - moderate - high VTE Device Contraindication: N/A - Device Ordered VTE Drug Contraindication: Treatment Not Indicated
[2024-08-05 12:00] VITALS: BP 118/56; PULSE 68; RESP 16; TEMP 36.7; O2SAT 99
[2024-08-05] MEDS: Acetaminophen 325 MG TABLET 650 MG PO (12:19)
[2024-08-05 16:00] VITALS: BP 106/66; PULSE 86; RESP 18; TEMP 36.6; O2SAT 99
[2024-08-05 19:46] VITALS: BP 105/62; PULSE 70; RESP 20; TEMP 36.1; O2SAT 100
[2024-08-05 21:25] LABS: Vancomycin Random 14.7 mcg/mL (15-20)
[2024-08-05 23:41] VITALS: BP 115/55; PULSE 79; RESP 17; TEMP 36.6; O2SAT 97
[2024-08-06] MEDS: cefEPime HCl/D5W 2 GM/50 ML PIGGYBACK IV ×3 (01:47→18:07)
[2024-08-06 03:07] VITALS: BP 105/49; PULSE 88; RESP 19; TEMP 36.6; O2SAT 92
[2024-08-06] MEDS: vancomycin HCL 750 MG in 0.9 % Sodium Chloride 250 ML 265 MG IV ×2 (06:31→15:56)
[2024-08-06 06:43] LABS: Creatinine Clr Calc Pharmacy 117.6; Estimated Glomerular Filt Rate > 60
[2024-08-06] MEDS: Acetaminophen 325 MG TABLET 650 MG PO (07:30)
[2024-08-06] MEDS: 0.9 % Sodium Chloride Flush 3 ML SYRINGE IVFLUSH ×3 (07:32→22:56)
[2024-08-06 08:00] VITALS: BP 108/56; PULSE 81; RESP 18; TEMP 36.9; O2SAT 97
[2024-08-06] MEDS: Metoprolol Succinate ER 25 MG TAB.ER.24H PO (08:19)
[2024-08-06 08:34] LABS: MANUAL DIFF FLAG NO
[2024-08-06 08:39] LABS: Anion Gap 13 (12-20); Carbon Dioxide 26 mmol/L (22-29); Chloride 99 mmol/L (96-108); Potassium 3.3 mmol/L (3.3-5.1); Sodium 135 mmol/L (135-145)
[2024-08-06 08:40] LABS: Basophils Percent Auto 0.2 % (0-2); Hematocrit 25.9 % (42.0-52.0); Hemoglobin 8.1 g/dl (14.0-18.0); Imm Gran Pct Auto 0.8 % (0.0-0.4); Lymphocytes Absolute Auto 1.2 X10*3/uL (1.2-4.9); Lymphocytes Percent Auto 9.5 % (20-40); Mean Corpuscular HGB Conc 31.3 g/dl (31.0-36.0); Mean Corpuscular Hemoglobin 27.8 pg (27.0-33.0); Mean Platelet Volume 10.3 fL (9.4-12.4); Monocytes Absolute Auto 0.7 X10*3/uL (0.1-1.2); Monocytes Percent Auto 5.8 % (2-11); Neutrophils Absolute Auto 10.2 x10*3/uL (2.0-8.3); Neutrophils Percent Auto 83.7 % (45-73); Platelet Count 198 X10*3/uL (160-400); Red Blood Count 2.91 X10*6/uL (4.60-5.80); White Blood Count 12.2 X10*3/uL (4.8-10.8)
[2024-08-06] MEDS: Benzonatate 100 MG CAPSULE PO ×2 (10:40→23:44)
[2024-08-06 12:00] VITALS: BP 106/55; PULSE 78; RESP 18; TEMP 36.9; O2SAT 97
--- NOTE | 2024-08-06 12:24 | HO.PM.IMPN ---
Subjective Subjective Date of Service: 08/06/24 Physical Exam Vital Signs: Vital Signs: Last Vital Signs Temp 98.4 F 08/06/24 08:00 Pulse 81 08/06/24 08:00 Resp 18 08/06/24 08:00 BP 108/56 L 08/06/24 08:00 Pulse Ox 97 08/06/24 08:00 O2 Del Method Nasal Cannula 08/06/24 08:00 O2 Flow Rate 4.0 08/06/24 08:00 BMI result Body Mass Index 19.2 Objective Data Active Medications Acetaminophen (Acetaminophen 325 Mg Tablet) 650 mg PO Q6H PRN PRN Reason: Pain, Mild 1-3,fever,headache Last Admin: 08/06/24 07:30 Dose: 650 mg Documented By: BOO Albuterol Sulfate (Albuterol Sulfate 90 Mcg 8 Gm Inhaler) 2 puff INHALE Q6H PRN PRN Reason: Shortness of Breath/Wheezing Benzonatate (Benzonatate 100 Mg Capsule) 100 mg PO TID PRN PRN Reason: Cough Last Admin: 08/06/24 10:40 Dose: 100 mg Documented By: BOO Calcium Carbonate (Calcium Carbonate 750 Mg Tab.Chew) 750 mg PO Q4H PRN PRN Reason: Heartburn Cefepime HCl (Maxipime) 2 gm in 50 mls @ 100 mls/hr IV Q8H [facility] Last Infusion: 08/06/24 10:38 Dose: Infused Documented By: BOO Vancomycin HCl 750 mg/ Sodium (Chloride) 265 mls @ 265 mls/hr IV Q8H [facility] Last Infusion: 08/06/24 07:40 Dose: Infused Documented By: BOO Magnesium Hydroxide (Milk Of Magnesia 30 Ml Oral.Susp) 30 ml PO DAILY PRN PRN Reason: Constipation Melatonin (Melatonin 3 Mg Tablet) 6 mg PO BEDTIME PRN PRN Reason: Insomnia Metoprolol Succinate (Metoprolol Succinate Er 25 Mg Tab.Er.24h) 25 mg PO DAILY [facility]; Protocol Last Admin: 08/06/24 08:19 Dose: 25 mg Documented By: BOO Nitroglycerin (Nitroglycerin 0.4 Mg Tab.Subl) 0.4 mg SUBLINGUAL Q5MX3 PRN PRN Reason: Chest Pain Ondansetron HCl (Ondansetron Hcl 4 Mg/2 Ml Vial) 4 mg IVPUSH Q8H PRN PRN Reason: Nausea and Vomiting Pharmacy Consult (Consult Rx Vancomycin Dosing) 1 each MISCELLANE DAILY PRN PRN Reason: Consult order Sodium Chloride (0.9 % Sodium Chloride Flush 3 Ml Syringe) 3 ml IVFLUSH QSHIFT [facility] Last Admin: 08/06/24 07:32 Dose: 3 ml Documented By: BOO Labs 08/06/24 05:43 08/06/24 05:43 Labs: Laboratory Results - last 24 hr 08/05/24 08/06/24 20:52 05:43 MCV 89.0 MCH 27.8 MCHC 31.3 RDW 20.0 H Plt Count 198 MPV 10.3 Immature Gran % (Auto) 0.8 H Neut % (Auto) 83.7 H Lymph % (Auto) 9.5 L [place] % (Auto) 5.8 Eos % (Auto) 0.0 Baso % (Auto) 0.2 Lymph # (Auto) 1.2 [place] # (Auto) 0.7 Eos # (Auto) 0.0 Baso # (Auto) 0.0 Abs Immat Gran (auto) 0.10 H Absolute Neuts (auto) 10.2 H Absolute Nucleated RBC 0.000 Nucleated RBC % (auto) 0.0 Hold Purple Top SEE NOTE Anion Gap 13 Estim Creat Clear Calc 117.6 Estimated GFR > 60 Random Vancomycin 14.7 L Microbiology Microbiology Results: Microbiology 08/03/24 18:31 Blood Culture - Preliminary Blood - Venous No growth after 48 hours. 08/03/24 18:45 Blood Culture - Preliminary Blood - Venous No growth after 48 hours. 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 Pt will be admitted to the hospital for treatment and further evaluation of acute hypoxic respiratory failure in the setting of multifocal cavitations vs abscesses. Acute hypoxic respiratory failure in the setting of multifocal cavitations vs abscesses with sepsis with underlying lung cancer and high tumor burden as evident on CT showing disease progression of infiltrative right perihilar mass with multifocal cavitations vs abscesses vs hydro. Pulmonology and CT surgery advise non-intervention and recommends paliative/hospice care, I had a preliminary discussion with the patient regarding hospice and he is open to the idea, will get hospice consult for now continue Cefepime and vanco, follow culture. check MRSA nasal screen if negative, dc vanco. Will discuss with oncology about goals of care. Continue O2, and wean as tolerated Metastatic [id number] lung cancer Last chemo session 06/26/[address] Sullivan--see her note Hx of CVA/HLD/CAD Hold rosuvastatin due to adverse reaction to atorvastatin Continue nitroglycerin HTN BP soft, hold meds for now Acute lactic acidosis--d/t hypoxa Hypoalbuminemia--d/t moderate protein calory malnutrition supplement Anemia of chronic disease--monitor DRN/DNI, verified with pt DVT Prophylaxis: Pneumatic compression. Add lovenox since H/H stable Ongoing hospitalization due to acute hypoxic respiratory failure in the setting of postobstructive pneumonia needing IV antibiotics. Quality Stroke Does the patient have a stroke diagnosis?: No VTE Prior VTE?: No VTE Risk Level:: Medical - moderate - high VTE Device Contraindication: N/A - Device Ordered VTE Drug Contraindication: Treatment Not Indicated
[2024-08-06] MEDS: Enoxaparin Sodium 40 MG/0.4 ML SYRINGE SUBCUT (13:55)
[2024-08-06 16:00] VITALS: BP 108/58; PULSE 72; RESP 18; TEMP 36.7; O2SAT 96
[2024-08-06 19:36] VITALS: BP 115/68; PULSE 84; RESP 18; TEMP 37.2; O2SAT 98
[2024-08-06 21:15] LABS: Vancomycin Random 14.3 mcg/mL (15-20)
[2024-08-06] MEDS: vancomycin HCL 1,000 MG in 0.9 % Sodium Chloride 250 ML 270 MG IV (22:55)
[2024-08-06 23:40] VITALS: BP 117/58; PULSE 82; RESP 18; TEMP 36.5; O2SAT 97
[2024-08-07] MEDS: cefEPime HCl/D5W 2 GM/50 ML PIGGYBACK IV (02:59)
[2024-08-07 04:00] VITALS: BP 108/60; PULSE 76; RESP 20; TEMP 36.3; O2SAT 95
[2024-08-07 06:36] LABS: Creatinine Clr Calc Pharmacy 117.6; Estimated Glomerular Filt Rate > 60
[2024-08-07] MEDS: vancomycin HCL 1,000 MG in 0.9 % Sodium Chloride 250 ML 270 MG IV (06:36)
[2024-08-07 07:26] VITALS: BP 129/60; PULSE 83; RESP 16; TEMP 36.8; O2SAT 94
[2024-08-07] MEDS: Acetaminophen 325 MG TABLET 650 MG PO (08:07)
[2024-08-07] MEDS: 0.9 % Sodium Chloride Flush 3 ML SYRINGE IVFLUSH (08:08)
[2024-08-07] MEDS: Metoprolol Succinate ER 25 MG TAB.ER.24H PO (08:08)
[2024-08-07 08:57] LABS: MRSA Nasal PCR NEGATIVE (Negative); SA Nasal PCR NEGATIVE (Negative)
--- NOTE | 2024-08-07 10:00 | PM.DS ---
DS: Providers Provider Date of Service: 08/07/24 Date of admission: 08/03/24 21:58 Date of discharge: 08/07/24 Primary care physician: India Maria MD Consults: 08/03/24 21:59 Consult to Pulmonology Routine Consulting Provider: [facility] Pulmonology Services Reason for consultation: Multifocal cavitations, abscesses or hydro pneumothoraces Consult to Thoracic Surgery Routine Consulting Provider: Daivd Bruce Reason for consultation: Multifocal cavitations, abscesses or hydro pneumothoraces 08/03/24 23:17 Consult to Hematology / Oncology Routine Consulting Provider: [facility] Oncology/Hematology Reason for consultation: NSCLC now showing multifocal cavitations vs abscesses DS: Diagnosis Discharge Diagnosis (1) Non-small cell cancer of right lung: Status: Chronic (2) 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 Pt with chronic SOB and cough, the pt notes it has been worsening in the past couple of weeks. Cough has been productive of brown, yellow, and white sputum. pt reports he has been coughing up ?lots and lots? of sputum has felt fatigued and with subjective fever and chills. Reports a ?little? episode of diarrhea today, but otherwise endorses mostly constipation. Reports reduced p.o. intake. Pt presents today due to worsening symptoms and that he ?just could not take it any longer? no chest pain/pressure, palpitations. No nausea, vomiting, abdominal pain. Reports last session of chemotherapy approximately 1 month ago. Follow[address] with Dr. Sullivan. In the ED pt was febrile to 100.5, tachycardic up to 102, tachycardic up to 25, and hypoxic at 83% on RA for EMS. Labs were significant for leukocytosis of 12.5, chronic normocytic anemia of 8.2/25.5, sodium 134, potassium 2.8, lactic acid 3.7 with repeat 2.2, and albumin 2.2. Tested negative for flu, RSV, COVID. CXR showed prominent cavitary process involving right lung possibly reflecting progression of known malignancy, though superimposed infection also on differential. CT?of chest showed likely disease progression involving infiltrate right perihilar mass with multifocal cavitations vs abscess vs hydro pneumothoraces. Also found subtle ground-glass/nodular consolidations throughout left lung possibly reflecting superimposed aspiration. EKG demonstrated sinus tachycardia [address] and T-wave abnormalities. Pt was treated with IVF, Mag sulfate, and cefepime. Pt will be admitted to the hospital for treatment and further evaluation of acute hypoxic respiratory failure in the setting of multifocal cavitations vs abscesses. hospital course Acute hypoxic respiratory failure in the setting of multifocal cavitations vs abscesses with sepsis with underlying lung cancer and high tumor burden as evident on CT showing disease progression of infiltrative right perihilar mass with multifocal cavitations vs abscesses vs hydro. Pulmonology and CT surgery advise non-intervention and recommends paliative/hospice care, I had a preliminary discussion with the patient regarding hospice and he is open to the idea, and agreable to [facility] hosp[facility]. He has clinically improved, no longer needs oxygen, MRSA nasal screen is negative and will transition to oral Augmentin for 10 days of antibiotics. Metastatic [id number] lung cancer Last chemo session 06/26/[address] Sullivan--see her note Hx of CVA/HLD/CAD Hold rosuvastatin due to adverse reaction to atorvastatin Continue nitroglycerin HTN BP soft, hold meds for now Acute lactic acidosis--d/t hypoxa Hypoalbuminemia--d/t moderate protein calory malnutrition supplement Anemia of chronic disease--monitor Time Attestation Discharge Coordination Time (in mins): 40 Quality: Safe Use of Opioids Does Pt have an Active Cancer Diagnosis on the Problem List?: No Quality: Stroke Does the patient have a stroke diagnosis?: No Physical Exam Vital Signs: Vital Signs: Last Vital Signs Temp 98.2 F 08/07/24 07:26 Pulse 83 08/07/24 07:26 Resp 16 08/07/24 07:26 BP 129/60 08/07/24 07:26 Pulse Ox 94 08/07/24 07:26 O2 Del Method Nasal Cannula 08/07/24 07:26 O2 Flow Rate 3 08/07/24 07:26 BMI result Body Mass Index 19.2 DS: Data Data Completed and Pending Labs on day of discharge: Laboratory Results - last 24 hr 08/06/24 08/06/24 08/07/24 18:23 20:49 05:36 Creatinine 0.55 Estim Creat Clear Calc 117.6 Estimated GFR > 60 Nasal Screen MRSA (PCR) NEGATIVE Nasal S. aureus Screen NEGATIVE Nasal MRSA/S.aureus Interp SEE NOTE Random Vancomycin 14.3 L Preliminary micro results at discharge 08/03/24 18:31 Blood Culture - Preliminary Blood - Venous No growth after 48 hours. 08/03/24 18:45 Blood Culture - Preliminary Blood - Venous No growth after 48 hours. Discharge Plan Discharge Anticipated Discharge Date/Time: 08/07/24 09:58 Patient Disposition: Home Health Service Discharge Diagnosis: Post obstructive pneumonia Referrals: [facility] [Other] - 1 Week India Maria MD [Primary Care Provider] - 1 Week Discharge Medications: New amoxicillin-pot clavulanate 875-125 mg Tablet 1 tab PO Q12H Qty: 14 0RF Continued rosuvastatin 5 mg tablet 5 mg PO MOWEFR nitroglycerin 0.4 mg tablet, sublingual 0.4 mg sublingual DAILY albuterol sulfate 90 mcg/actuation HFA aerosol inhaler 2 puff inhalation Q6H PRN (Reason: shortness of breath or wheezing) Qty: 8.5 0RF lisinopril 10 mg tablet 10 mg PO DAILY Qty: 90 4RF Rx Instructions: Schedule next PCP appt for more refills metoprolol succinate 25 mg tablet extended release 24 hr 25 mg PO DAILY Qty: 90 4RF ezetimibe 10 mg tablet 10 mg PO DAILY Qty: 30 5RF Discharge Orders: Discharge Order (Routine); Ordered 08/07/24 Ordered By: Siddharth Watson Diet: Advance to usual diet Activity on Discharge: As tolerated Stand Alone Forms: Patient Portal Discharge page Print Language: [place] Care Plan Goals: Recovery from pneumonia hospice care for advanced cancer Health Concerns: pneumonia advanced lung cancer Plan of Treatment: Take Augmentin as recommended and follow up with your doctor in a week Assessment: see above Discharge Date/Time: 08/07/24 13:55
[2024-08-07 10:22] VITALS: PULSE 79; PULSE 87; PULSE 97; O2SAT 77; O2SAT 90; O2SAT 95
[2024-08-07] MEDS: Amoxicillin/Potassium Clav 875 MG TABLET PO (10:37)
[2024-08-07 11:26] VITALS: BP 100/59; PULSE 78; RESP 16; TEMP 36.9; O2SAT 93
--- NOTE | 2024-08-07 13:01 | P.F2F_ITS ---
Service Date Service Date: 08/07/24 Encounter Date of encounter: 08/07/24 Reasons for Services Signs and symptoms assessed: shortness of breath with minimal effort Reason for [facility]: medication management and teach disease management Reason for physical therapy: therapeutic exercises, gait/transfer training and ADL training Homebound: Leaving the home is medically contraindicated at this time without the asist of a device and/or another person due th the listed conditions above and below. Reason homebound: unsteady gait / fall risk, fall risk related to blood pressure changes and weakness related to hospital stay Homebound supporting statement: homebound due to weakness from hospitalization from advanced cancer and therefore needs the assistance of another person Certification: Based on the above findings, I certify that this patient is confined to the home and needs intermittent [facility] care, physical therapy and/or speech therapy, or continues to need occupational therapy. The patient is under my care, and I have initiated the establishment of the plan of care. The patient will be followed by a physician who will periodically review the plan of care. Time Spent With Patient Time: Total time managing care of this patient today ____ minutes.
--- NOTE | 2024-08-07 14:31 | MHC.CM.PN ---
PT DCD HOME TODAY WITH [facility]
== END 2024-08-07 13:55 | disposition home health service (06) | DRG 871 ==
LOC: HO.ED 18:18 → HO.EDOVER 22:02 → HO.S3 08-04 12:16
PROVIDERS: Student in an Organized Health Care Education/Training Program; Admitting Provider Student in an Organized Health Care Education/Training Program; Emergency Provider Emergency Medicine; PCP Internal Medicine; Visit Provider Internal Medicine
DX: A41.9 Sepsis, unspecified organism (principal); J18.9 Pneumonia, unspecified organism; J96.01 Acute respiratory failure with hypoxia; C34.01 Malignant neoplasm of right main bronchus; C79.51 Secondary malignant neoplasm of bone; E44.0 Moderate protein-calorie malnutrition; Z68.1 Body mass index [BMI] 19.9 or less, adult; E88.09 Other disorders of plasma-protein metabolism, not elsewhere classified; E87.6 Hypokalemia; D64.81 Anemia due to antineoplastic chemotherapy; Z66 Do not resuscitate; I25.10 Atherosclerotic heart disease of native coronary artery without angina pectoris; D63.0 Anemia in neoplastic disease; Z20.822 Contact with and (suspected) exposure to COVID-19; Z95.5 Presence of coronary angioplasty implant and graft; Z87.891 Personal history of nicotine dependence; Z79.899 Other long term (current) drug therapy
CPT/HCPCS: 0241U; 36415; 71045; 71260; 80048; 80051; 80076; 80202; 81003; 82565; 82803; 83605; 83735; 83880; 84484; 85025; 85610; 87040; 87640; 87641; 93005; 97161; 99285; J0692; J1650; J2543; J3370; J3371; J3475; J3480; Q9967

== ENCOUNTER → 2024-08-03 17:52 | Outpatient (BNV) | payer MEDICARE, MEDICAID, SELFPAY | PROVIDERS: Emergency Provider Emergency Medicine; Visit Provider Radiology Vascular & Interventional Radiology | DX: C34.31 Malignant neoplasm of lower lobe, right bronchus or lung (principal); I88.8 Other nonspecific lymphadenitis | CPT/HCPCS: 71045 ==

== ENCOUNTER → 2024-08-03 17:52 | Outpatient (BNV) | payer MEDICARE, MEDICAID, SELFPAY | PROVIDERS: Admitting Provider Student in an Organized Health Care Education/Training Program; Emergency Provider Emergency Medicine; Visit Provider Internal Medicine Cardiovascular Disease | DX: I45.10 Unspecified right bundle-branch block (principal); R00.0 Tachycardia, unspecified | CPT/HCPCS: 93010 ==

== ENCOUNTER → 2024-08-03 21:58 | Outpatient (BNV) | payer MEDICARE, MEDICAID, SELFPAY | PROVIDERS: Admitting Provider Student in an Organized Health Care Education/Training Program; Emergency Provider Emergency Medicine; Visit Provider Student in an Organized Health Care Education/Training Program | DX: C34.91 Malignant neoplasm of unspecified part of right bronchus or lung (principal); R94.2 Abnormal results of pulmonary function studies; J98.4 Other disorders of lung; J96.01 Acute respiratory failure with hypoxia | CPT/HCPCS: 99223; 99232; 99239; G0180 ==

== ENCOUNTER → 2024-08-03 21:58 | Outpatient (BNV) | payer MEDICARE, MEDICAID, SELFPAY | PROVIDERS: Admitting Provider Student in an Organized Health Care Education/Training Program; Emergency Provider Emergency Medicine; Visit Provider Hospitalist | DX: J96.01 Acute respiratory failure with hypoxia (principal); J98.4 Other disorders of lung; C34.91 Malignant neoplasm of unspecified part of right bronchus or lung; J18.9 Pneumonia, unspecified organism | CPT/HCPCS: 99223 ==

== ENCOUNTER → 2024-08-03 21:58 | Outpatient (BNV) | payer MEDICARE, MEDICAID, SELFPAY | PROVIDERS: Admitting Provider Student in an Organized Health Care Education/Training Program; Emergency Provider Emergency Medicine; Visit Provider Internal Medicine | DX: C34.91 Malignant neoplasm of unspecified part of right bronchus or lung (principal); C77.1 Secondary and unspecified malignant neoplasm of intrathoracic lymph nodes | CPT/HCPCS: 99222 ==

== ENCOUNTER → 2024-08-03 21:58 | Outpatient (BNV) | payer MEDICARE, MEDICAID, SELFPAY | PROVIDERS: Admitting Provider Student in an Organized Health Care Education/Training Program; Emergency Provider Emergency Medicine; Visit Provider Surgery | DX: C34.91 Malignant neoplasm of unspecified part of right bronchus or lung (principal) | CPT/HCPCS: 99223 ==